=== PATIENT | female | born 1945 | race Caucasian/White ===

== ENCOUNTER 2017-08-23 20:42 | Emergency (ER) | payer MEDICARE ==
[~2017-08-23] VITALS: Ht 162.6 cm; Wt 59.0 kg
[~2017-08-23 20:42] MED LIST: HYDR-757 PO
--- OUTSIDE RECORDS SUMMARY | 2017-08-23 20:50 | XMS REPORT | CCD ---
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 Name Role Phone PP Unavailable CCM Unavailable Summary Purpose Interface Exchange Insurance Providers Payer name Policy type / Coverage type Covered democrat ID Effective Begin Date Effective End Date [employer] Commercial Insurance [id number] 2014 Unknown WPS Medicare Part B Commercial Insurance [id number] 2014 Unknown Family history Mother Diagnosis Age At Onset Hypertension Unknown Heart Attack Unknown Stroke Unknown Runs in the family Diagnosis Age At Onset Breast cancer Unknown Father Diagnosis Age At Onset Diabetes mellitus Type 1 Unknown Colon cancer Unknown Social History Social History Element Codes Description Effective Dates Marital status Unknown 08/05/2014 Number of children Unknown 2 08/05/2014 Employment Unknown Retired 08/05/[address]: 029354348 Never smoker 08/05/[address]: 922500515 Never drinks alcohol 08/05/2014 Allergies, Adverse Reactions, Alerts Allergies, Adverse Reactions, Alerts data not found Past Medical History Illness Codes Condition Status Onset Date Resolved Date Essential (primary) hypertension ICD-9: 401.9 ICD-10: I10 Active 08/04/2014 Unknown Type 2 diabetes mellitus without complications ICD-9: 250.00 ICD-10: E11.9 Active 08/04/2014 Unknown Encounter for immunization ICD-9: V03.9 ICD-10: Z23 Active 11/25/2016 Unknown Encounter for screening mammogram for malignant neoplasm of breast ICD-9: V76.12 ICD-10: Z12.31 Active 11/11/2015 Unknown Mixed hyperlipidemia ICD-9: 272.2 ICD-10: E78.2 Active 05/27/2016 Unknown Cough ICD-9: 786.2 ICD-10: R05 Active 04/09/2015 Unknown Gastro-esophageal reflux disease without esophagitis ICD-9: 530.81 ICD-10: K21.9 Active 11/12/2016 Unknown Encounter for general adult medical examination without abnormal findings ICD-9: V70.9 ICD-10: Z00.00 Active 10/15/2015 Unknown Age-related osteoporosis without current pathological fracture ICD-9: 733.00 ICD-10: M81.0 Active 11/11/2015 Unknown VACCIN FOR INFLUENZA ICD-9: V04.81 ICD-10: Z23 Active 11/11/2015 Unknown Other seborrheic keratosis ICD-9: 702.19 ICD-10: L82.1 Active 07/09/2015 Unknown Pain in left finger(s) ICD-9: 729.5 ICD-10: M79.645 Active 07/09/2015 Unknown Acute recurrent maxillary sinusitis ICD-9: 461.0 ICD-10: J01.01 Active 03/17/2015 Unknown Other acute nonsuppurative otitis media, left ear ICD-9: 381.00 ICD-10: H65.192 Active 03/17/2015 Unknown Other allergic rhinitis ICD-9: 477.8 ICD-10: J30.89 Active 03/17/2015 Unknown Atopic dermatitis, unspecified ICD-9: 691.8 ICD-10: L20.9 Active 03/05/2015 Unknown Dermatitis, unspecified ICD-9: 692.9 ICD-10: L30.9 Active 03/05/2015 Unknown Other specified diabetes mellitus without complications ICD-9: 250.00 ICD-10: E13.9 Active 08/04/2014 Unknown Diabetes Unknown Active 08/05/2014 Unknown Hypertension Unknown Active 08/05/2014 Unknown DIABETES TYPE II ICD-9 : 250.00 Active 08/04/2014 Unknown ESSENTIAL HYPERTENSION ICD-9: 401.9 Active 08/04/2014 Unknown Rash ICD-9: 782.1 Active 08/04/2014 Unknown Problems Condition Codes Effective Dates Condition Status Essential (primary) hypertension ICD-9: 401.9 ICD-10: I10 08/04/2014 Active Type 2 diabetes mellitus without complications ICD-9: 250.00 ICD-10: E11.9 08/04/2014 Active Encounter for immunization ICD-9: V03.9 ICD-10: Z23 11/25/2016 Active Encounter for screening mammogram for malignant neoplasm of breast ICD-9: V76.12 ICD-10: Z12.31 11/11/2015 Active Mixed hyperlipidemia ICD-9: 272.2 ICD-10: E78.2 05/27/2016 Active Cough ICD-9: 786.2 ICD-10: R05 04/09/2015 Active Gastro-esophageal reflux disease without esophagitis ICD-9: 530.81 ICD-10: K21.9 11/12/2016 Active Encounter for general adult medical examination without abnormal findings ICD-9: V70.9 ICD-10: Z00.00 10/15/2015 Active Age-related osteoporosis without current pathological fracture ICD-9: 733.00 ICD-10: M81.0 11/11/2015 Active VACCIN FOR INFLUENZA ICD-9: V04.81 ICD-10: Z23 11/11/2015 Active Other seborrheic keratosis ICD-9: 702.19 ICD-10: L82.1 07/09/2015 Active Pain in left finger(s) ICD-9: 729.5 ICD-10: M79.645 07/09/2015 Active Acute recurrent maxillary sinusitis ICD-9: 461.0 ICD-10: J01.01 03/17/2015 Active Other acute nonsuppurative otitis media, left ear ICD-9: 381.00 ICD-10: H65.192 03/17/2015 Active Other allergic rhinitis ICD-9: 477.8 ICD-10: J30.89 03/17/2015 Active Atopic dermatitis, unspecified ICD-9: 691.8 ICD-10: L20.9 03/05/2015 Active Dermatitis, unspecified ICD-9: 692.9 ICD-10: L30.9 03/05/2015 Active Other specified diabetes mellitus without complications ICD-9: 250.00 ICD-10: E13.9 08/04/2014 Active Diabetes Unknown 08/05/2014 Active Hypertension Unknown 08/05/2014 Active DIABETES TYPE II ICD-9 : 250.00 08/04/2014 Active ESSENTIAL HYPERTENSION ICD-9: 401.9 08/04/2014 Active Rash ICD-9: 782.1 08/04/2014 Active Medications Medication Codes Instructions Start Date Stop Date Status Fill Instructions Lexapro 5 mg tablet RxNorm: 454641 1 Tablet(s) PO QHS 201706/12/2017 Active simvastatin 20 mg tablet RxNorm: 837275 1 TABLET(S) PO DAILY 03/09/2018 Active Lexapro 5 mg tablet RxNorm: 178572 1 Tablet(s) PO QHS 201703/14/2017 Inactive Lexapro 5 mg tablet RxNorm: 051918 1 Tablet(s) PO QHS 201703/13/2017 Inactive Tamiflu 75 mg capsule RxNorm: 567500 1 Capsule(s) PO BID 201702/09/2017 Inactive Tamiflu 75 mg capsule RxNorm: 000402 1 Capsule(s) PO BID 201702/14/2017 Inactive Zoloft 50 mg tablet RxNorm: 087404 TABLET(S) 1 TABLET(S) PO DAILY 01/24/2017 01/18/2018 Active Fosamax 70 mg tablet RxNorm: 283543 1 TABLET(S) PO WEEKLY 12/0306/02/2017 Active losartan 50 mg tablet RxNorm: 041127 1 Tablet(s) PO daily TAKE 1 TABLET BY MOUTH EVERY DAY 11/25/2016 05/18/2018 Active hydrochlorothiazide 25 mg tablet RxNorm: 674112 TABLET(S) 1 TABLET(S) PO DAILY 11/23/2016 04/21/2017 Active metformin 1,000 mg tablet RxNorm: 806582 1 TABLET(S) PO BID 08/19/2017 Active Nexium 24HR 22.3 mg capsule,delayed release RxNorm: 863026 1 Capsule(s) PO daily 11/17/2016 11/11/2017 Active Nexium 24HR 22.3 mg capsule,delayed release RxNorm: 785222 1 Capsule(s) PO daily 11/17/2016 11/16/2016 Inactive Nexium 24HR 22.3 mg capsule,delayed release RxNorm: 884646 1 Capsule(s) PO daily 11/12/2016 11/16/2016 Inactive Klor-Con 10 mEq tablet,extended release RxNorm: 747230 1 TABLET(S) PO BID 09/20/2016 06/16/2017 Active betamethasone valerate 0.1 % topical ointment RxNorm: 608264 1 Application TOP TID as needed 08/02/2016 10/30/2016 Inactive hydrochlorothiazide 25 mg tablet RxNorm: 952976 TABLET(S) 1 TABLET(S) PO DAILY 06/09/2016 11/05/2016 Inactive losartan 25 mg tablet RxNorm: 960703 TAKE 1 TABLET BY MOUTH EVERY DAY 05/21/2016 11/16/2016 Inactive losartan 25 mg tablet RxNorm: 457248 Tablet(s) 1 TABLET(S) PO DAILY 03/17/2016 09/12/2016 Inactive Fosamax 70 mg tablet RxNorm: 599851 1 Tablet(s) PO weekly 03/1709/14/2016 Inactive simvastatin 20 mg tablet RxNorm: 432525 1 TABLET(S) PO DAILY 12/03/2016 Inactive metformin 1,000 mg tablet RxNorm: 344022 1 TABLET(S) PO BID 10/17/2016 Inactive Zoloft 50 mg tablet RxNorm: 082678 Tablet(s) 1 TABLET(S) PO DAILY 12/17/2015 2016 Inactive hydrochlorothiazide 25 mg tablet RxNorm: 143997 Tablet(s) 1 TABLET(S) PO DAILY 12/03/2015 05/30/2016 Inactive losartan 25 mg tablet RxNorm: 343453 1 TABLET(S) PO DAILY 201503/16/2016 Inactive Klor-Con 10 mEq tablet,extended release RxNorm: 184462 1 TABLET(S) PO BID 11/05/2015 07/31/2016 Inactive hydrochlorothiazide 25 mg tablet RxNorm: 201855 1 TABLET(S) PO DAILY (PLEASE CALL OFFICE FOR APPOINTMENT 07/30/20152015 Inactive [SAVINGS FOR NON-COVERED DRUGS -- BIN:[id number], PCN: ASPROD1, Group: XXXXX, ID# [id number], Questions: [phone]. THIS IS NOT INSURANCE.] Cipro 500 mg tablet RxNorm: 427923 1 Tablet(s) PO BID 201506/08/2015 Inactive Cipro 500 mg tablet RxNorm: 360053 1 Tablet(s) PO BID 201506/15/2015 Inactive Zoloft 50 mg tablet RxNorm: 048107 1 TABLET(S) PO DAILY 201511/21/2015 Inactive losartan 25 mg tablet RxNorm: 027453 1 Tablet(s) PO daily 201511/05/2015 Inactive Zoloft 50 mg tablet RxNorm: 386827 TAKE 1 TABLET BY MOUTH DAILY 03/31/2015 09/26/2015 Inactive Zoloft 50 mg tablet RxNorm: 058010 1 Tablet(s) PO daily 201503/30/2015 Inactive enalapril maleate 5 mg tablet RxNorm: 603449 TAKE 1 TABLET BY MOUTH DAILY 03/31/2015 04/09/2015 Inactive amoxicillin 500 mg tablet RxNorm: 436031 1 Tablet(s) PO BID 10/201503/24/2015 Inactive ciprofloxacin 0.3 % eye drops RxNorm: 485553 1-2 Drop(s) OTIC TID 03/18/2015 03/27/2015 Inactive betamethasone valerate 0.1 % topical ointment RxNorm: 469032 1 Application TOP TID 03/06/2015 10/01/2015 Inactive hydrochlorothiazide 25 mg tablet RxNorm: 467478 1 TABLET(S) PO DAILY (PLEASE CALL OFFICE FOR APPOINTMENT 01/21/20152015 Inactive [SAVINGS FOR NON-COVERED DRUGS -- BIN:[id number], PCN: ASPROD1, Group: XXXXX, ID# [id number], Questions: [phone]. THIS IS NOT INSURANCE.] simvastatin 20 mg tablet RxNorm: 960964 1 Tablet(s) PO daily 12/26/2015 Inactive metformin 1,000 mg tablet RxNorm: 526515 TAKE 1 TWICE DAILY 06/24/2015 Inactive metformin 1,000 mg tablet RxNorm: 413900 1 Tablet(s) PO BID 12/26/2014 Inactive metformin 500 mg tablet RxNorm: 427419 1 Tablet(s) PO BID 12/2712/26/2014 Inactive Fosamax 70 mg tablet RxNorm: 421982 1 Tablet(s) PO QW weekly 12/14/2015 Inactive betamethasone valerate 0.1 % topical ointment RxNorm: 317404 1 Application TOP TID 11/19/2014 12/02/2014 Inactive hydrochlorothiazide 25 mg tablet RxNorm: 598258 1 TABLET(S) PO DAILY (PLEASE CALL OFFICE FOR APPOINTMENT 10/31/20142014 Inactive [SAVINGS FOR NON-COVERED DRUGS -- BIN:[id number], PCN: ASPROD1, Group: XXXXX, ID# [id number], Questions: [phone]. THIS IS NOT INSURANCE.] Klor-Con 10 mEq tablet,extended release RxNorm: 490291 1 Tablet(s) PO BID 10/25/2014 10/19/2015 Inactive Klor-Con 10 mEq tablet,extended release RxNorm: 454746 1 Tablet(s) PO BID 10/25/2014 10/24/2014 Inactive Klor-Con 10 mEq tablet,extended release RxNorm: 684828 1 Tablet(s) PO BID 10/25/2014 10/24/2014 Inactive enalapril maleate 5 mg tablet RxNorm: 117746 TAKE 1 TABLET BY MOUTH DAILY 10/01/2014 03/29/2015 Inactive triamcinolone acetonide 0.1 % topical cream RxNorm: 0512875 1 Application TOP BID 08/05/2014 08/18/2014 Inactive clotrimazole 1 % topical cream RxNorm: 202014 1 Application TOP BID 08/05/2014 08/18/2014 Inactive apply to rash twice daily hydrochlorothiazide 25 mg tablet RxNorm: 149600 1 TABLET(S) PO DAILY (PLEASE CALL OFFICE FOR APPOINTMENT 08/01/20142014 Inactive [SAVINGS FOR NON-COVERED DRUGS -- BIN:[id number], PCN: ASPROD1, Group: XXXXX, ID# [id number], Questions: [phone]. THIS IS NOT INSURANCE.] hydrochlorothiazide 25 mg tablet RxNorm: 651239 1 Tablet(s) PO daily (please call office for appointment 06/19/20142014 Inactive [SAVINGS FOR NON-COVERED DRUGS -- BIN:714709, PCN: ASPROD1, Group: XXXXX, ID# [id number], Questions: [phone]. THIS IS NOT INSURANCE.] hydrochlorothiazide 25 mg tablet RxNorm: 826527 1 Tablet(s) PO daily (please call office for appointment 06/19/20142014 Inactive vitamin E 1,000 unit tablet RxNorm: 620832 1 Tablet(s) PO daily No Start Date Active One Touch Test strips RxNorm: Miscellaneous No Start Date Active acyclovir 400 mg tablet RxNorm: 288694 1 Tablet(s) PO daily No Start Date Active Vitamin B-12 1,000 mcg tablet RxNorm: 552776 1 Tablet(s) PO daily No Start Date Active Vitamin D3 5,000 unit tablet RxNorm: 020463 1 Tablet(s) PO daily No Start Date Active Vitamin C 500 mg chewable tablet RxNorm: 682534 1 Tablet(s) PO daily No Start Date Active enalapril maleate 5 mg tablet RxNorm: 581636 1 Tablet(s) PO daily No Start Date 09/30/2014 Inactive Vitamin D2 50,000 unit capsule RxNorm: 246797 1 Capsule(s) PO weekly No Start Date 05/26/2016 Inactive Zoloft 50 mg tablet RxNorm: 724632 1 Tablet(s) PO daily No Start Date 03/30/2015 Inactive KCL 10 meq RxNorm: 1 Tablet(s) PO BID No Start Date 10/25/2014 Inactive sertraline 50 mg tablet RxNorm: 819904 oral No Start Date 05/27/2016 Inactive Fosamax 70 mg tablet RxNorm: 331804 1 Tablet(s) PO weekly No Start Date 03/16/2016 Inactive metformin 500 mg tablet RxNorm: 598147 1 Tablet(s) PO BID No Start Date 12/26/2014 Inactive Vitamin B12 500 mcg RxNorm: 1 PO daily No Start Date 05/26/2016 Inactive Medication Administered No Medication Administered data Immunizations Vaccine Codes Date Status Influenza CVX: 141 11/25/2016 completed Influenza CVX: 141 12/29/2015 completed Influenza CVX: 141 11/12/2015 completed Influenza CVX: 141 11/19/2014 completed Assessments Condition Codes Effective Dates Type 2 diabetes mellitus without complications ICD-10: E11.9 ICD-9: 250.00 01/05/2017 Essential (primary) hypertension ICD-10: I10 ICD-9: 401.9 01/05/2017 Encounter for immunization ICD-10: Z23 ICD-9: V03.9 11/25/2016 Encounter for screening mammogram for malignant neoplasm of breast ICD-10: Z12.31 ICD-9: V76.12 11/25/2016 Mixed hyperlipidemia ICD-10: E78.2 ICD-9: 272.2 11/25/2016 Gastro-esophageal reflux disease without esophagitis ICD-10 : K21.9 ICD-9: 530.81 11/12/2016 Cough ICD-10: R05 ICD-9: 786.2 11/12/2016 Age-related osteoporosis without current pathological fracture ICD-10: M81.0 ICD-9: 733.00 11/12/2015 VACCIN FOR INFLUENZA ICD-10: Z23 ICD-9: V04.81 11/12/2015 Encounter for general adult medical examination without abnormal findings ICD-10: Z00.00 ICD-9: V70.9 10/16/2015 Pain in left finger(s) ICD-10: M79.645 ICD-9: 729.5 07/10/2015 Other seborrheic keratosis ICD-10: L82.1 ICD-9: 702.19 07/10/2015 Other acute nonsuppurative otitis media, left ear ICD-10: H65.192 ICD-9: 381.00 03/18/2015 Other allergic rhinitis ICD-10: J30.89 ICD-9: 477.8 03/18/2015 Acute recurrent maxillary sinusitis ICD-10: J01.01 ICD-9: 461.0 03/18/2015 Dermatitis, unspecified ICD-10: L30.9 ICD-9: 692.9 03/06/2015 Atopic dermatitis, unspecified ICD-10: L20.9 ICD-9: 691.8 03/06/2015 Other specified diabetes mellitus without complications ICD- 10: E13.9 ICD-9: 250.00 11/19/2014 Rash ICD-9: 782.1 08/16/2014 DIABETES TYPE II ICD-9: 250.00 2014 ESSENTIAL HYPERTENSION ICD-9: 401.9 08/05 Reason For Visit Reason For Visit Effective Dates Notes hypertension 01/05/2017 hypertension 11/25/2016 resolved cough 11/12/2016 hypertension 05/27/2016 hypertension 05/05/2016 hypertension 11/12/2015 Annual Medicare Wellness Exam 10/16/2015 cough 07/10/2015 cough 04/10/2015 earache 03/18/2015 abdominal pain 03/06/2015 mole check 12/12/2014 psoriasis 11/19/2014 BILAT LE flare up of rash 08/16/2014 flare up of rash 08/05/2014 Results Observation Observation Code Item Item Code Result Date %Hba1C Kqp582 % HbA1c 01199-0 5.9 % 12/01/2016 %Hba1C Inn916 Gluc Ave 123 mg/dL 12/01/2016 Comp Metabolic Ivb535 NA 139 mEq/L 12/01/2016 Comp Metabolic Xkr608 K 3.9 mEq/L 12/01/2016 Comp Metabolic Epc325 CL 102 mEq/L 12/01/2016 Comp Metabolic Ymf369 CO2 27.0 mEq/L 12/01/2016 Comp Metabolic Wbe543 ANION GAP 14 12/01/2016 Comp Metabolic Sdn845 GLUCOSE 118 mg/dL 12/01/2016 Comp Metabolic Jmr205 Creat 1.3 mg/dL 12/01/2016 Comp Metabolic Umt400 eGFR 43 ml/min/1.73m2 12/01/2016 Comp Metabolic Cfv524 BUN 26 mg/dL 12/01/2016 Comp Metabolic Ofz798 B/C Ratio 20.0 Ratio 12/01/2016 Comp Metabolic Usc439 CALCIUM 9.0 mg/dL 12/01/2016 Comp Metabolic Gcs195 ALK PHOS 84 U/L 12/01/2016 Comp Metabolic Dky087 AST(SGOT) 9 U/L 12/01/2016 Comp Metabolic Cqu755 ALT(SGPT) 7 U/L 12/01/2016 Comp Metabolic Axz705 BILI T 0.5 mg/dL 12/01/2016 Comp Metabolic Mcq637 ALBUMIN 3.8 g/dL 12/01/2016 Comp Metabolic Xpw644 TPRO 6.2 g/dL 12/01/2016 Comp Metabolic Mxj791 GLOB 2.4 g/dL 12/01/2016 Comp Metabolic Rag191 A/G Ratio 1.6 Ratio 12/01/2016 Comp Metabolic Ijf040 Osmo 283 mOsmo 12/01/2016 Cbc With Differential Ord2 WBC 8.51 K/ul 12/01/2016 Cbc With Differential Ord2 RBC 4.02 M/ul 12/01/2016 Cbc With Differential Ord2 HGB 12.0 g/dl 12/01/2016 Cbc With Differential Ord2 Neut% 66.8 % 12/01/2016 Cbc With Differential Ord2 HCT 36.0 % 12/01/2016 Cbc With Differential Ord2 MCV 89.6 fl 12/01/2016 Cbc With Differential Ord2 Lymph% 20.7 % 12/01/2016 Cbc With Differential Ord2 [place]% 9.4 % 12/01/2016 Cbc With Differential Ord2 MCH 29.9 pg 12/01/2016 Cbc With Differential Ord2 Eos% 2.7 % 12/01/2016 Cbc With Differential Ord2 MCHC 33.3 pg 12/01/2016 Cbc With Differential Ord2 PLT 260 K/ul 12/01/2016 Cbc With Differential Ord2 Baso% 0.4 % 12/01/2016 Cbc With Differential Ord2 Neut ABS# 5.69 K/ul 12/01/2016 Cbc With Differential Ord2 RDW 13.3 % 12/01/2016 Cbc With Differential Ord2 Lymph ABS# 1.76 K/ul 12/01/2016 Cbc With Differential Ord2 [place] ABS# 0.8 K/ul 12/01/2016 Cbc With Differential Ord2 Eos ABS# 0.2 K/ul 12/01/2016 Cbc With Differential Ord2 Baso ABS# 0.0 K/ul 12/01/2016 Lipid Ord30 CHOL 180 mg/dL 12/01/2016 Lipid Ord30 HDL 47.0 mg/dl 12/01/2016 Lipid Ord30 TRIG 142 mg/dL 12/01/2016 Lipid Ord30 LDL 105 mg/dL 12/01/2016 Lipid Ord30 C/HDL 3.8 Ratio 12/01/2016 Tsh Ord6 hTSH II 1.48 uIU/mL 12/01/2016 Lipid Ord30 CHOL 175 mg/dL 06/14/2016 Lipid Ord30 HDL 57.0 mg/dl 06/14/2016 Lipid Ord30 TRIG 80 mg/dL 06/14/2016 Lipid Ord30 LDL 102 mg/dL 06/14/2016 Lipid Ord30 C/HDL 3.1 Ratio 06/14/2016 Tsh Ord6 hTSH II 1.99 uIU/mL 06/14/2016 %Hba1C Mzr736 % HbA1c 07900-3 5.9 % 06/14/2016 %Hba1C Yat143 Gluc Ave 123 mg/dL 06/14/2016 Microalbumin Rem998 MicroAlb <0.7 mg/dL 06/14/2016 Comp Metabolic Bsf017 NA 139 mEq/L 06/14/2016 Comp Metabolic Bde315 K 4.0 mEq/L 06/14/2016 Comp Metabolic Bmw645 CL 100 mEq/L 06/14/2016 Comp Metabolic Mgd132 CO2 26.0 mEq/L 06/14/2016 Comp Metabolic Knd067 ANION GAP 17 06/14/2016 Comp Metabolic Ydc908 GLUCOSE 122 mg/dL 06/14/2016 Comp Metabolic Men167 Creat 1.2 mg/dL 06/14/2016 Comp Metabolic Rqq506 eGFR 46 ml/min/1.73m2 06/14/2016 Comp Metabolic Kse271 BUN 27 mg/dL 06/14/2016 Comp Metabolic Miq021 B/C Ratio 22.3 Ratio 06/14/2016 Comp Metabolic Pys405 CALCIUM 9.2 mg/dL 06/14/2016 Comp Metabolic Pji027 ALK PHOS 89 U/L 06/14/2016 Comp Metabolic Mjf519 AST(SGOT) 9 U/L 06/14/2016 Comp Metabolic Sml176 ALT(SGPT) 9 U/L 06/14/2016 Comp Metabolic Oio899 BILI T 0.5 mg/dL 06/14/2016 Comp Metabolic Dse288 ALBUMIN 3.9 g/dL 06/14/2016 Comp Metabolic Urh393 TPRO 6.5 g/dL 06/14/2016 Comp Metabolic Bmw489 GLOB 2.6 g/dL 06/14/2016 Comp Metabolic Ctd063 A/G Ratio 1.5 Ratio 06/14/2016 Comp Metabolic Tug649 Osmo 284 mOsmo 06/14/2016 Cbc With Differential Ord2 WBC 9.48 K/ul 06/14/2016 Cbc With Differential Ord2 RBC 4.29 M/ul 06/14/2016 Cbc With Differential Ord2 HGB 13.0 g/dl 06/14/2016 Cbc With Differential Ord2 Neut% 67.0 % 06/14/2016 Cbc With Differential Ord2 HCT 38.8 % 06/14/2016 Cbc With Differential Ord2 MCV 90.4 fl 06/14/2016 Cbc With Differential Ord2 Lymph% 20.9 % 06/14/2016 Cbc With Differential Ord2 MCH 30.3 pg 06/14/2016 Cbc With Differential Ord2 [place]% 10.3 % 06/14/2016 Cbc With Differential Ord2 MCHC 33.5 pg 06/14/2016 Cbc With Differential Ord2 Eos% 1.4 % 06/14/2016 Cbc With Differential Ord2 PLT 273 K/ul 06/14/2016 Cbc With Differential Ord2 Baso% 0.4 % 06/14/2016 Cbc With Differential Ord2 RDW 13.1 % 06/14/2016 Cbc With Differential Ord2 Neut ABS# 6.35 K/ul 06/14/2016 Cbc With Differential Ord2 Lymph ABS# 1.98 K/ul 06/14/2016 Cbc With Differential Ord2 [place] ABS# 1.0 K/ul 06/14/2016 Cbc With Differential Ord2 Eos ABS# 0.1 K/ul 06/14/2016 Cbc With Differential Ord2 Baso ABS# 0.0 K/ul 06/14/2016 Comp Metabolic Uwp488 NA 140 mEq/L 11/13/2015 Comp Metabolic Axv476 K 4.3 mEq/L 11/13/2015 Comp Metabolic Fhe983 CL 101 mEq/L 11/13/2015 Comp Metabolic Zan599 CO2 31.0 mEq/L 11/13/2015 Comp Metabolic Ptz483 ANION GAP 12 11/13/2015 Comp Metabolic Zla242 GLUCOSE 108 mg/dL 11/13/2015 Comp Metabolic Gey602 Creat 1.1 mg/dL 11/13/2015 Comp Metabolic Kjx936 eGFR 54 ml/min/1.73m2 11/13/2015 Comp Metabolic Vxo053 BUN 23 mg/dL 11/13/2015 Comp Metabolic Qck325 B/C Ratio 21.5 Ratio 11/13/2015 Comp Metabolic Bdr438 CALCIUM 9.8 mg/dL 11/13/2015 Comp Metabolic Sbi142 ALK PHOS 69 U/L 11/13/2015 Comp Metabolic Lgm378 AST(SGOT) 11 U/L 11/13/2015 Comp Metabolic Euj630 ALT(SGPT) 8 U/L 11/13/2015 Comp Metabolic Rby759 BILI T 0.5 mg/dL 11/13/2015 Comp Metabolic Yqv590 ALBUMIN 4.0 g/dL 11/13/2015 Comp Metabolic Sfm302 TPRO 6.4 g/dL 11/13/2015 Comp Metabolic Bmx041 GLOB 2.4 g/dL 11/13/2015 Comp Metabolic Bnc566 A/G Ratio 1.7 Ratio 11/13/2015 Comp Metabolic Dco641 Osmo 284 mOsmo 11/13/2015 Vitamin D 25 Oh Hwa5444 VITAMIN D, 25 HYDROXY 51.34 ng/mL Tsh Ord6 hTSH II 1.57 uIU/mL 11/12/2015 Cbc With Differential Ord2 WBC 7.53 K/ul 11/12/2015 Cbc With Differential Ord2 RBC 3.99 M/ul 11/12/2015 Cbc With Differential Ord2 HGB 12.2 g/dl 11/12/2015 Cbc With Differential Ord2 HCT 35.6 % 11/12/2015 Cbc With Differential Ord2 Neut% 59.6 % 11/12/2015 Cbc With Differential Ord2 Lymph% 27.9 % 11/12/2015 Cbc With Differential Ord2 MCV 89.2 fl 11/12/2015 Cbc With Differential Ord2 MCH 30.6 pg 11/12/2015 Cbc With Differential Ord2 [place]% 10.1 % 11/12/2015 Cbc With Differential Ord2 Eos% 1.9 % 11/12/2015 Cbc With Differential Ord2 MCHC 34.3 pg 11/12/2015 Cbc With Differential Ord2 Baso% 0.5 % 11/12/2015 Cbc With Differential Ord2 PLT 256 K/ul 11/12/2015 Cbc With Differential Ord2 Neut ABS# 4.49 K/ul 11/12/2015 Cbc With Differential Ord2 RDW 13.0 % 11/12/2015 Cbc With Differential Ord2 Lymph ABS# 2.10 K/ul 11/12/2015 Cbc With Differential Ord2 [place] ABS# 0.8 K/ul 11/12/2015 Cbc With Differential Ord2 Eos ABS# 0.1 K/ul 11/12/2015 Cbc With Differential Ord2 Baso ABS# 0.0 K/ul 11/12/2015 %Hba1C Qgc581 % HbA1c 18716-1 5.8 % 11/12/2015 %Hba1C Mwn956 Gluc Ave 120 mg/dL 11/12/2015 Vitamin D 25 Oh Ncl8402 VITAMIN D, 25 HYDROXY 25.02 ng/mL Lipid Ord30 CHOL 162 mg/dL 03/06/2015 Lipid Ord30 HDL 54.0 mg/dl 03/06/2015 Lipid Ord30 TRIG 114 mg/dL 03/06/2015 Lipid Ord30 LDL 85 mg/dL 03/06/2015 Lipid Ord30 C/HDL 3.0 Ratio 03/06/2015 %Hba1C Kqd813 % HbA1c 41482-3 5.8 % 03/06/2015 %Hba1C Shc715 Gluc Ave 120 mg/dL 03/06/2015 Comp Metabolic Uko747 NA 137 mEq/L 03/06/2015 Comp Metabolic Dbr752 K 4.5 mEq/L 03/06/2015 Comp Metabolic Ebb180 CL 100 mEq/L 03/06/2015 Comp Metabolic Hhu408 CO2 28.0 mEq/L 03/06/2015 Comp Metabolic Zrv643 ANION GAP 14 03/06/2015 Comp Metabolic Xgk012 GLUCOSE 87 mg/dL 03/06/2015 Comp Metabolic Shk511 Creat 1.1 mg/dL 03/06/2015 Comp Metabolic Hrc083 eGFR 52 ml/min/1.73m2 03/06/2015 Comp Metabolic Bdv566 BUN 31 mg/dL 03/06/2015 Comp Metabolic Oxw536 B/C Ratio 28.2 Ratio 03/06/2015 Comp Metabolic Wkx161 CALCIUM 9.2 mg/dL 03/06/2015 Comp Metabolic Yfv963 ALK PHOS 72 U/L 03/06/2015 Comp Metabolic Aog572 AST(SGOT) 9 U/L 03/06/2015 Comp Metabolic Xnc260 ALT(SGPT) 7 U/L 03/06/2015 Comp Metabolic Onu143 BILI T 0.5 mg/dL 03/06/2015 Comp Metabolic Grl552 ALBUMIN 4.1 g/dL 03/06/2015 Comp Metabolic Ufw191 TPRO 6.3 g/dL 03/06/2015 Comp Metabolic Woq430 GLOB 2.2 g/dL 03/06/2015 Comp Metabolic Fko545 A/G Ratio 1.9 Ratio 03/06/2015 Comp Metabolic Eqo929 Osmo 280 mOsmo 03/06/2015 %Hba1C Bsc097 % HbA1c 76560-7 5.8 % 11/20/2014 %Hba1C Ecg041 Gluc Ave 120 mg/dL 11/20/2014 Tsh Ord6 hTSH II 1.58 uIU/mL 11/19/2014 Cbc With Differential Ord2 WBC 8.9 K/uL 11/19/2014 Cbc With Differential Ord2 LYM 2.2 K/uL 11/19/2014 Cbc With Differential Ord2 LYM% 24.9 % 11/19/2014 Cbc With Differential Ord2 NEUT/GRAN 6.1 K/uL 11/19/2014 Cbc With Differential Ord2 NEUT/GRAN % 69.0 % 11/19/2014 Cbc With Differential Ord2 MID 0.5 K/uL 11/19/2014 Cbc With Differential Ord2 MID% 6.1 % 11/19/2014 Cbc With Differential Ord2 RBC 4.31 M/uL 11/19/2014 Cbc With Differential Ord2 HGB 12.8 g/dL 11/19/2014 Cbc With Differential Ord2 HCT 39.2 % 11/19/2014 Cbc With Differential Ord2 MCV 91 fL 11/19/2014 Cbc With Differential Ord2 MCH 30 pg 11/19/2014 Cbc With Differential Ord2 MCHC 33 g/dL 11/19/2014 Cbc With Differential Ord2 PLT 275 K/uL 11/19/2014 Cbc With Differential Ord2 RDW 15.1 % 11/19/2014 Lipid Ord30 CHOL 150 mg/dL 11/19/2014 Lipid Ord30 HDL 49.0 mg/dl 11/19/2014 Lipid Ord30 TRIG 129 mg/dL 11/19/2014 Lipid Ord30 LDL 75 mg/dL 11/19/2014 Lipid Ord30 C/HDL 3.1 Ratio 11/19/2014 Comp Metabolic Pjk050 NA 137 mEq/L 11/19/2014 Comp Metabolic Smd253 K 4.2 mEq/L 11/19/2014 Comp Metabolic Lju274 CL 99 mEq/L 11/19/2014 Comp Metabolic Til245 CO2 30.0 mEq/L 11/19/2014 Comp Metabolic Zus798 ANION GAP 12 11/19/2014 Comp Metabolic Dtz230 GLUCOSE 92 mg/dL 11/19/2014 Comp Metabolic Oge655 Creat 0.9 mg/dL 11/19/2014 Comp Metabolic Acl000 eGFR 68 ml/min/1.73m2 11/19/2014 Comp Metabolic Vlb731 BUN 23 mg/dL 11/19/2014 Comp Metabolic Lwr832 B/C Ratio 26.4 Ratio 11/19/2014 Comp Metabolic Sfp220 CALCIUM 9.7 mg/dL 11/19/2014 Comp Metabolic Aam763 ALK PHOS 84 U/L 11/19/2014 Comp Metabolic Gsf833 AST(SGOT) 9 U/L 11/19/2014 Comp Metabolic Nhn617 ALT(SGPT) 9 U/L 11/19/2014 Comp Metabolic Vjv082 BILI T 0.5 mg/dL 11/19/2014 Comp Metabolic Zcw576 ALBUMIN 4.3 g/dL 11/19/2014 Comp Metabolic Dfi416 TPRO 6.7 g/dL 11/19/2014 Comp Metabolic Jgo390 GLOB 2.4 g/dL 11/19/2014 Comp Metabolic Ulv458 A/G Ratio 1.8 Ratio 11/19/2014 Comp Metabolic Eer310 Osmo 277 mOsmo 11/19/2014 Review of Systems System Result Effective Dates Constitutional No recent illness 2016 Constitutional No anorexia 01/05/2017 Constitutional No night sweats 2016 Constitutional No chills 01/05/2017 Constitutional No diaphoresis 01/05/2017 Constitutional fatigue 01/05/2017 Constitutional No fever 01/05/2017 Constitutional No malaise 01/05/2017 Eyes No eye discharge 01/05/2017 Eyes No eye erythema 01/05/2017 Ears/Nose/Throat/Neck No dizziness 2016 Ears/Nose/Throat/Neck No headache 2016 Cardiovascular No chest pain/pressure Respiratory No cough 01/05/2017 Gastrointestinal No abdominal pain 2016 Gastrointestinal No constipation 2016 Gastrointestinal No diarrhea 01/05/2017 Genitourinary/Nephrology No dysuria 01/05 Musculoskeletal joint complaint 2016 Dermatologic rash 01/05/2017 Neurologic No alteration of consciousness 01/05/2017 Psychiatric anxiety 01/05/2017 Psychiatric No depression 01/05/2017 Endocrine diabetes mellitus type 2 2016 Constitutional No recent illness 2016 Constitutional No anorexia 11/25/2016 Constitutional No night sweats 2016 Constitutional No chills 11/25/2016 Constitutional No diaphoresis 11/25/2016 Constitutional No fatigue 11/25/2016 Constitutional No fever 11/25/2016 Constitutional No malaise 11/25/2016 Eyes No eye discharge 11/25/2016 Eyes No eye erythema 11/25/2016 Ears/Nose/Throat/Neck No dizziness 2016 Ears/Nose/Throat/Neck No headache 2016 Cardiovascular No chest pain/pressure Respiratory No cough 11/25/2016 Gastrointestinal No abdominal pain 2016 Gastrointestinal No constipation 2016 Gastrointestinal No diarrhea 11/25/2016 Genitourinary/Nephrology No dysuria 11/25 Musculoskeletal joint complaint 2016 Dermatologic rash 11/25/2016 Neurologic No alteration of consciousness 11/25/2016 Psychiatric No anxiety 11/25/2016 Psychiatric No depression 11/25/2016 Endocrine diabetes mellitus type 2 2016 Constitutional No recent illness 2016 Constitutional No chills 11/12/2016 Constitutional No diaphoresis 11/12/2016 Constitutional No fever 11/12/2016 Eyes No eye erythema 11/12/2016 Ears/Nose/Throat/Neck No nasal discharge 11/12/2016 Ears/Nose/Throat/Neck No nasal allergies 11/12/2016 Cardiovascular No chest pain/pressure 07/2016 Cardiovascular No dyspnea 11/12/2016 Respiratory No chest congestion 2016 Respiratory cough 11/12/2016 Respiratory dyspnea on exertion 2016 Gastrointestinal No abdominal pain 2016 Gastrointestinal gastroesophageal reflux 11/12/2016 Gastrointestinal No diarrhea 11/12/2016 Gastrointestinal No constipation 2016 Gastrointestinal No vomiting 11/12/2016 Gastrointestinal No nausea 11/12/2016 Neurologic No alteration of consciousness 11/12/2016 Neurologic No mental status change 2016 Constitutional No recent illness 2016 Constitutional No anorexia 05/27/2016 Constitutional No night sweats 2016 Constitutional No chills 05/27/2016 Constitutional No diaphoresis 05/27/2016 Constitutional No fatigue 05/27/2016 Constitutional No fever 05/27/2016 Constitutional No malaise 05/27/2016 Eyes No eye discharge 05/27/2016 Eyes No eye erythema 05/27/2016 Ears/Nose/Throat/Neck No dizziness 2016 Ears/Nose/Throat/Neck No headache 2016 Cardiovascular No chest pain/pressure Respiratory No cough 05/27/2016 Gastrointestinal No abdominal pain 2016 Gastrointestinal No constipation 2016 Gastrointestinal No diarrhea 05/27/2016 Genitourinary/Nephrology No dysuria 05/27 Musculoskeletal joint complaint 2016 Dermatologic rash 05/27/2016 Neurologic No alteration of consciousness 05/27/2016 Psychiatric No anxiety 05/27/2016 Psychiatric No depression 05/27/2016 Endocrine diabetes mellitus type 2 2016 Constitutional No recent illness 2016 Constitutional No diaphoresis 05/05/2016 Constitutional No fever 05/05/2016 Eyes No eye erythema 05/05/2016 Ears/Nose/Throat/Neck No nasal allergies 05/05/2016 Ears/Nose/Throat/Neck No nasal discharge 05/05/2016 Cardiovascular No chest pain/pressure Respiratory No dyspnea 05/05/2016 Respiratory No cough 05/05/2016 Gastrointestinal No abdominal pain 2016 Gastrointestinal No constipation 2016 Gastrointestinal No diarrhea 05/05/2016 Gastrointestinal No vomiting 05/05/2016 Gastrointestinal No nausea 05/05/2016 Musculoskeletal No joint complaint 2016 Dermatologic No rash 05/05/2016 Neurologic No alteration of consciousness 05/05/2016 Neurologic No mental status change 2016 Constitutional No recent illness 2015 Constitutional No anorexia 11/12/2015 Constitutional No night sweats 2015 Constitutional No chills 11/12/2015 Constitutional No diaphoresis 11/12/2015 Constitutional No fatigue 11/12/2015 Constitutional No fever 11/12/2015 Constitutional No malaise 11/12/2015 Eyes No eye discharge 11/12/2015 Eyes No eye erythema 11/12/2015 Ears/Nose/Throat/Neck No dizziness 2015 Ears/Nose/Throat/Neck No headache 2015 Cardiovascular No chest pain/pressure 06/2015 Respiratory No cough 11/12/2015 Gastrointestinal No abdominal pain 2015 Gastrointestinal No constipation 2015 Gastrointestinal No diarrhea 11/12/2015 Genitourinary/Nephrology No dysuria 11/11 Musculoskeletal joint complaint 2015 Dermatologic rash 11/12/2015 Neurologic No alteration of consciousness 11/12/2015 Psychiatric No anxiety 11/12/2015 Psychiatric No depression 11/12/2015 Endocrine diabetes mellitus type 2 2015 Constitutional No recent illness 2015 Constitutional No anorexia 10/16/2015 Constitutional No chills 10/16/2015 Constitutional No diaphoresis 10/16/2015 Constitutional No fatigue 10/16/2015 Constitutional No fever 10/16/2015 Constitutional No insomnia 10/16/2015 Constitutional No malaise 10/16/2015 Eyes No eye discharge 10/16/2015 Eyes No eye erythema 10/16/2015 Ears/Nose/Throat/Neck No dizziness 2015 Ears/Nose/Throat/Neck No headache 2015 Cardiovascular No chest pain/pressure 09/2015 Respiratory No cough 10/16/2015 Gastrointestinal No abdominal pain 2015 Gastrointestinal No constipation 2015 Gastrointestinal No diarrhea 10/16/2015 Genitourinary/Nephrology No dysuria 10/15 Neurologic No alteration of consciousness 10/16/2015 Psychiatric No anxiety 10/16/2015 Psychiatric No depression 10/16/2015 Constitutional No night sweats 2015 Ears/Nose/Throat/Neck No nasal discharge 10/16/2015 Ears/Nose/Throat/Neck No nasal allergies 10/16/2015 Ears/Nose/Throat/Neck No sore throat 09/2015 Ears/Nose/Throat/Neck No sinus congestion 10/16/2015 Cardiovascular No dyspnea 10/16/2015 Cardiovascular No edema 10/16/2015 Respiratory No chest congestion 2015 Respiratory No productive sputum 2015 Respiratory No dyspnea 10/16/2015 Genitourinary/Nephrology No flank pain Musculoskeletal No joint complaint 2015 Dermatologic No rash 10/16/2015 Neurologic No mental status change 2015 Constitutional No recent illness 2015 Constitutional No anorexia 07/10/2015 Constitutional No night sweats 2015 Constitutional No chills 07/10/2015 Constitutional No diaphoresis 07/10/2015 Constitutional No fatigue 07/10/2015 Constitutional No fever 07/10/2015 Constitutional No insomnia 07/10/2015 Constitutional No malaise 07/10/2015 Eyes No eye discharge 07/10/2015 Eyes No eye erythema 07/10/2015 Ears/Nose/Throat/Neck No dizziness 2015 Ears/Nose/Throat/Neck No headache 2015 Cardiovascular No chest pain/pressure 03/2015 Respiratory No cough 07/10/2015 Gastrointestinal No abdominal pain 2015 Gastrointestinal No constipation 2015 Gastrointestinal No diarrhea 07/10/2015 Genitourinary/Nephrology No dysuria 07/09 Musculoskeletal joint complaint 2015 Dermatologic rash 07/10/2015 Neurologic No alteration of consciousness 07/10/2015 Psychiatric No anxiety 07/10/2015 Psychiatric No depression 07/10/2015 Constitutional No recent illness 2015 Constitutional No anorexia 04/10/2015 Constitutional No night sweats 2015 Constitutional No chills 04/10/2015 Constitutional No diaphoresis 04/10/2015 Constitutional No fatigue 04/10/2015 Constitutional No fever 04/10/2015 Constitutional No insomnia 04/10/2015 Constitutional No malaise 04/10/2015 Constitutional No weight loss 04/10/2015 Constitutional No weight gain 04/10/2015 Eyes No eye discharge 04/10/2015 Eyes No eye erythema 04/10/2015 Ears/Nose/Throat/Neck No dizziness 2015 Ears/Nose/Throat/Neck No headache 2015 Cardiovascular No chest pain/pressure 04/2015 Respiratory No cough 04/10/2015 Gastrointestinal No abdominal pain 2015 Gastrointestinal No constipation 2015 Gastrointestinal No diarrhea 04/10/2015 Genitourinary/Nephrology No dysuria 04/09 Musculoskeletal No joint complaint 2015 Dermatologic No rash 04/10/2015 Neurologic No alteration of consciousness 04/10/2015 Psychiatric No anxiety 04/10/2015 Psychiatric No depression 04/10/2015 Constitutional recent illness 03/18/2015 Constitutional No diaphoresis 03/18/2015 Constitutional No fever 03/18/2015 Eyes No eye discharge 03/18/2015 Eyes No eye erythema 03/18/2015 Cardiovascular No chest pain/pressure 10/2015 Respiratory No cough 03/18/2015 Gastrointestinal No abdominal pain 2015 Gastrointestinal No constipation 2015 Gastrointestinal No diarrhea 03/18/2015 Genitourinary/Nephrology No dysuria 03/18 Musculoskeletal No joint complaint 2015 Dermatologic No rash 03/18/2015 Neurologic No alteration of consciousness 03/18/2015 Psychiatric No anxiety 03/18/2015 Psychiatric No depression 03/18/2015 Ears/Nose/Throat/Neck nasal allergies 10/2015 Ears/Nose/Throat/Neck nasal discharge 10/2015 Ears/Nose/Throat/Neck otalgia 03/18/2015 Ears/Nose/Throat/Neck No sinus congestion 03/18/2015 Ears/Nose/Throat/Neck No sore throat 10/2015 Cardiovascular No dyspnea 03/18/2015 Respiratory No chest congestion 2015 Constitutional No recent illness 2015 Constitutional No anorexia 03/06/2015 Constitutional No night sweats 2015 Constitutional No chills 03/06/2015 Constitutional No diaphoresis 03/06/2015 Constitutional No fatigue 03/06/2015 Constitutional No fever 03/06/2015 Constitutional No insomnia 03/06/2015 Constitutional No malaise 03/06/2015 Eyes No eye discharge 03/06/2015 Eyes No eye erythema 03/06/2015 Ears/Nose/Throat/Neck No dizziness 2015 Ears/Nose/Throat/Neck No headache 2015 Cardiovascular No chest pain/pressure Respiratory No cough 03/06/2015 Gastrointestinal No abdominal pain 2015 Gastrointestinal No constipation 2015 Gastrointestinal No diarrhea 03/06/2015 Genitourinary/Nephrology No dysuria 03/06 Musculoskeletal No joint complaint 2015 Dermatologic No rash 03/06/2015 Neurologic No alteration of consciousness 03/06/2015 Constitutional No recent illness 2014 Constitutional No anorexia 12/12/2014 Constitutional No night sweats 2014 Constitutional No chills 12/12/2014 Constitutional No fatigue 12/12/2014 Constitutional No diaphoresis 12/12/2014 Constitutional No fever 12/12/2014 Constitutional No insomnia 12/12/2014 Constitutional No malaise 12/12/2014 Constitutional No weight loss 12/12/2014 Constitutional No weight gain 12/12/2014 Eyes No eye discharge 12/12/2014 Eyes No eye erythema 12/12/2014 Ears/Nose/Throat/Neck No dizziness 2014 Ears/Nose/Throat/Neck No headache 2014 Cardiovascular No chest pain/pressure 06/2014 Respiratory No cough 12/12/2014 Gastrointestinal No abdominal pain 2014 Gastrointestinal No constipation 2014 Gastrointestinal No diarrhea 12/12/2014 Genitourinary/Nephrology No dysuria 12/12 Musculoskeletal No joint complaint 2014 Dermatologic No rash 12/12/2014 Neurologic No alteration of consciousness 12/12/2014 Constitutional No recent illness 2014 Constitutional No anorexia 11/19/2014 Constitutional No night sweats 2014 Constitutional No chills 11/19/2014 Constitutional No diaphoresis 11/19/2014 Constitutional fatigue 11/19/2014 Constitutional No fever 11/19/2014 Constitutional No insomnia 11/19/2014 Constitutional malaise 11/19/2014 Eyes No eye discharge 11/19/2014 Eyes No eye erythema 11/19/2014 Ears/Nose/Throat/Neck No dizziness 2014 Ears/Nose/Throat/Neck No headache 2014 Cardiovascular No chest pain/pressure Cardiovascular No dyspnea 11/19/2014 Cardiovascular No edema 11/19/2014 Respiratory No productive sputum 2014 Respiratory No cough 11/19/2014 Respiratory passive smoking 11/19/2014 Gastrointestinal No abdominal pain 2014 Gastrointestinal No constipation 2014 Gastrointestinal No diarrhea 11/19/2014 Gastrointestinal gastroesophageal reflux 11/19/2014 Genitourinary/Nephrology No dysuria 11/19 Musculoskeletal back pain 11/19/2014 Musculoskeletal No joint complaint 2014 Dermatologic rash 11/19/2014 Neurologic No alteration of consciousness 11/19/2014 Psychiatric No anxiety 11/19/2014 Psychiatric No depression 11/19/2014 Constitutional No recent illness 2014 Constitutional No anorexia 08/16/2014 Constitutional No night sweats 2014 Constitutional No chills 08/16/2014 Constitutional No diaphoresis 08/16/2014 Constitutional fatigue 08/16/2014 Constitutional No fever 08/16/2014 Constitutional No insomnia 08/16/2014 Constitutional No malaise 08/16/2014 Dermatologic rash 08/16/2014 Constitutional No recent illness 2014 Constitutional No anorexia 08/05/2014 Constitutional No night sweats 2014 Constitutional No chills 08/05/2014 Constitutional No diaphoresis 08/05/2014 Constitutional fatigue 08/05/2014 Constitutional No fever 08/05/2014 Constitutional No insomnia 08/05/2014 Constitutional No malaise 08/05/2014 Constitutional weight loss 08/05/2014 Constitutional No weight gain 08/05/2014 Dermatologic rash 08/05/2014 Eyes No eye discharge 08/05/2014 Eyes No eye erythema 08/05/2014 Ears/Nose/Throat/Neck No dizziness 2014 Ears/Nose/Throat/Neck No headache 2014 Cardiovascular No chest pain/pressure Cardiovascular No edema 08/05/2014 Cardiovascular No dyspnea 08/05/2014 Respiratory No productive sputum 2014 Respiratory No cough 08/05/2014 Respiratory passive smoking 08/05/2014 Gastrointestinal gastroesophageal reflux 08/05/2014 Gastrointestinal No abdominal pain 2014 Gastrointestinal No constipation 2014 Gastrointestinal No diarrhea 08/05/2014 Genitourinary/Nephrology No dysuria 08/05 Musculoskeletal No joint complaint 2014 Neurologic No alteration of consciousness 08/05/2014 Musculoskeletal back pain 08/05/2014 Psychiatric No depression 08/05/2014 Psychiatric No anxiety 08/05/2014 Hematologic/Lymphatic No abnormal bleeding and bruising 08/05/2014 Physical Exam Exam Name System Name Item Name Status Result Effective Dates Notes Full Exam - General 1994 Constitutional general appearance Overall: well developed 01/05/2017 None Full Exam - General 1994 Constitutional general appearance Overall: in no acute distress 01/05/2017 None Full Exam - General 1994 Constitutional general appearance Overall: well nourished 01/05/2017 None Full Exam - General 1994 Eyes conjunctiva /eyelids Overall: conjunctiva clear 01/05/2017 None Full Exam - General 1994 Eyes pupils and irises Overall: pupils equal, round, reactive to light and accomodation 01/05/2017 None Full Exam - General 1994 Ears/Nose/Throat otoscopic exam Overall: external auditory canals clear 01/05/2017 None Full Exam - General 1994 Ears/Nose/Throat otoscopic exam Overall: tympanic membranes clear 01/05/2017 None Full Exam - General 1994 Ears/Nose/Throat oral cavity/pharynx/larynx Overall: oral mucosa clear 01/05/2017 None Full Exam - General 1994 Respiratory auscultation Overall: breath sounds clear bilaterally 01/05/2017 None Full Exam - General 1994 Respiratory respiratory effort/rhythm Overall: no retractions 01/05/2017 None Full Exam - General 1994 Respiratory respiratory effort/rhythm Overall: normal rate 01/05/2017 None Full Exam - General 1994 Cardiovascular auscultation of heart Overall: regular rate 01/05/2017 None Full Exam - General 1994 Cardiovascular auscultation of heart Overall: normal heart sounds 01/05/2017 None Full Exam - General 1994 Cardiovascular auscultation of heart Overall: no murmurs 01/05/2017 None Full Exam - General 1994 Abdomen abdominal exam Overall: no tenderness 01/05/2017 None Full Exam - General 1994 Abdomen abdominal exam Overall: normal bowel sounds 01/05/2017 None Full Exam - General 1994 Musculoskeletal digits and nails DIPs: third 01/05/2017 None Full Exam - General 1994 Neurologic cranial nerves Overall: crainial nerves 2 - 12 grossly intact 01/05/2017 None Full Exam - General 1994 Psychiatric orientation/consciousness Overall: oriented to person, place and time 01/05/2017 None Full Exam - General 1994 Psychiatric mood and affect Overall: normal mood and affect 01/05/2017 None Full Exam - General 1994 Constitutional general appearance Overall: well developed 11/25/2016 None Full Exam - General 1994 Constitutional general appearance Overall: in no acute distress 11/25/2016 None Full Exam - General 1994 Constitutional general appearance Overall: well nourished 11/25/2016 None Full Exam - General 1994 Eyes conjunctiva /eyelids Overall: conjunctiva clear 11/25/2016 None Full Exam - General 1994 Eyes pupils and irises Overall: pupils equal, round, reactive to light and accomodation 11/25/2016 None Full Exam - General 1994 Ears/Nose/Throat otoscopic exam Overall: external auditory canals clear 11/25/2016 None Full Exam - General 1994 Ears/Nose/Throat otoscopic exam Overall: tympanic membranes clear 11/25/2016 None Full Exam - General 1994 Ears/Nose/Throat oral cavity/pharynx/larynx Overall: oral mucosa clear 11/25/2016 None Full Exam - General 1994 Respiratory auscultation Overall: breath sounds clear bilaterally 11/25/2016 None Full Exam - General 1994 Respiratory respiratory effort/rhythm Overall: no retractions 11/25/2016 None Full Exam - General 1994 Respiratory respiratory effort/rhythm Overall: normal rate 11/25/2016 None Full Exam - General 1994 Cardiovascular auscultation of heart Overall: regular rate 11/25/2016 None Full Exam - General 1994 Cardiovascular auscultation of heart Overall: normal heart sounds 11/25/2016 None Full Exam - General 1994 Cardiovascular auscultation of heart Overall: no murmurs 11/25/2016 None Full Exam - General 1994 Abdomen abdominal exam Overall: no tenderness 11/25/2016 None Full Exam - General 1994 Abdomen abdominal exam Overall: normal bowel sounds 11/25/2016 None Full Exam - General 1994 Musculoskeletal digits and nails DIPs: third 11/25/2016 None Full Exam - General 1994 Neurologic cranial nerves Overall: crainial nerves 2 - 12 grossly intact 11/25/2016 None Full Exam - General 1994 Psychiatric orientation/consciousness Overall: oriented to person, place and time 11/25/2016 None Full Exam - General 1994 Integument inspection of skin Overall: no rash, lesions 11/25/2016 None Full Exam - General 1994 Constitutional general appearance Overall: well developed 11/12/2016 None Full Exam - General 1994 Constitutional general appearance Overall: in no acute distress 11/12/2016 None Full Exam - General 1994 Constitutional general appearance Overall: well nourished 11/12/2016 None Full Exam - General 1994 Eyes conjunctiva /eyelids Overall: conjunctiva clear 11/12/2016 None Full Exam - General 1994 Eyes pupils and irises Overall: pupils equal, round, reactive to light and accomodation 11/12/2016 None Full Exam - General 1994 Ears/Nose/Throat oral cavity/pharynx/larynx Overall: oral mucosa clear 11/12/2016 None Full Exam - General 1994 Respiratory auscultation Overall: breath sounds clear bilaterally 11/12/2016 None Full Exam - General 1994 Respiratory respiratory effort/rhythm Overall: no retractions 11/12/2016 None Full Exam - General 1994 Respiratory respiratory effort/rhythm Overall: normal rate 11/12/2016 None Full Exam - General 1994 Cardiovascular auscultation of heart Overall: regular rate 11/12/2016 None Full Exam - General 1994 Cardiovascular auscultation of heart Overall: normal heart sounds 11/12/2016 None Full Exam - General 1994 Abdomen abdominal exam Overall: no tenderness 11/12/2016 None Full Exam - General 1994 Abdomen abdominal exam Overall: normal bowel sounds 11/12/2016 None Full Exam - General 1994 Neurologic cranial nerves Overall: crainial nerves 2 - 12 grossly intact 11/12/2016 None Full Exam - General 1994 Psychiatric orientation/consciousness Overall: oriented to person, place and time 11/12/2016 None Full Exam - General 1994 Ears/Nose/Throat lips/teeth/gingiva Overall: benign lips 11/12/2016 None Full Exam - General 1994 Musculoskeletal head and neck Overall: head atraumatic 11/12/2016 None Full Exam - General 1994 Musculoskeletal gait and station Overall: normal station 11/12/2016 None Full Exam - General 1994 Musculoskeletal gait and station Overall: normal gait 11/12/2016 None Full Exam - General 1994 Psychiatric mood and affect Overall: normal mood and affect 11/12/2016 None Full Exam - General 1994 Constitutional general appearance Overall: well developed 05/27/2016 None Full Exam - General 1994 Constitutional general appearance Overall: in no acute distress 05/27/2016 None Full Exam - General 1994 Constitutional general appearance Overall: well nourished 05/27/2016 None Full Exam - General 1994 Eyes conjunctiva /eyelids Overall: conjunctiva clear 05/27/2016 None Full Exam - General 1994 Eyes pupils and irises Overall: pupils equal, round, reactive to light and accomodation 05/27/2016 None Full Exam - General 1994 Ears/Nose/Throat otoscopic exam Overall: external auditory canals clear 05/27/2016 None Full Exam - General 1994 Ears/Nose/Throat otoscopic exam Overall: tympanic membranes clear 05/27/2016 None Full Exam - General 1994 Ears/Nose/Throat oral cavity/pharynx/larynx Overall: oral mucosa clear 05/27/2016 None Full Exam - General 1994 Respiratory auscultation Overall: breath sounds clear bilaterally 05/27/2016 None Full Exam - General 1994 Respiratory respiratory effort/rhythm Overall: no retractions 05/27/2016 None Full Exam - General 1994 Respiratory respiratory effort/rhythm Overall: normal rate 05/27/2016 None Full Exam - General 1994 Cardiovascular auscultation of heart Overall: regular rate 05/27/2016 None Full Exam - General 1994 Cardiovascular auscultation of heart Overall: normal heart sounds 05/27/2016 None Full Exam - General 1994 Cardiovascular auscultation of heart Overall: no murmurs 05/27/2016 None Full Exam - General 1994 Abdomen abdominal exam Overall: no tenderness 05/27/2016 None Full Exam - General 1994 Abdomen abdominal exam Overall: normal bowel sounds 05/27/2016 None Full Exam - General 1994 Musculoskeletal digits and nails DIPs: third 05/27/2016 None Full Exam - General 1994 Integument inspection of skin Location: face 05/27/2016 john k left mandaen at hair line Full Exam - General 1994 Integument inspection of skin Location: left leg 05/27/2016 None Full Exam - General 1994 Integument inspection of skin Location: right leg 05/27/2016 None Full Exam - General 1994 Integument inspection of skin Rash/Lesions: patch 05/27/2016 None Full Exam - General 1994 Integument inspection of skin Pigmentation: erythematous 05/27/2016 None Full Exam - General 1994 Neurologic cranial nerves Overall: crainial nerves 2 - 12 grossly intact 05/27/2016 None Full Exam - General 1994 Psychiatric orientation/consciousness Overall: oriented to person, place and time 05/27/2016 None Full Exam - General 1994 Constitutional general appearance Overall: well developed 05/05/2016 None Full Exam - General 1994 Constitutional general appearance Overall: well nourished 05/05/2016 None Full Exam - General 1994 Constitutional general appearance Overall: in no acute distress 05/05/2016 None Full Exam - General 1994 Eyes conjunctiva /eyelids Overall: conjunctiva clear 05/05/2016 None Full Exam - General 1994 Eyes conjunctiva /eyelids Overall: eyelids normal 05/05/2016 None Full Exam - General 1994 Eyes pupils and irises Overall: pupils equal, round, reactive to light and accomodation 05/05/2016 None Full Exam - General 1994 Ears/Nose/Throat lips/teeth/gingiva Overall: benign lips 05/05/2016 None Full Exam - General 1994 Ears/Nose/Throat oral cavity/pharynx/larynx Overall: oral mucosa clear 05/05/2016 None Full Exam - General 1994 Respiratory auscultation Overall: breath sounds clear bilaterally 05/05/2016 None Full Exam - General 1994 Respiratory respiratory effort/rhythm Overall: no retractions 05/05/2016 None Full Exam - General 1994 Respiratory respiratory effort/rhythm Overall: normal rate 05/05/2016 None Full Exam - General 1994 Cardiovascular auscultation of heart Overall: regular rate 05/05/2016 None Full Exam - General 1994 Cardiovascular auscultation of heart Overall: normal heart sounds 05/05/2016 None Full Exam - General 1994 Abdomen abdominal exam Overall: no tenderness 05/05/2016 None Full Exam - General 1994 Abdomen abdominal exam Overall: normal bowel sounds 05/05/2016 None Full Exam - General 1994 Musculoskeletal gait and station Overall: normal gait 05/05/2016 None Full Exam - General 1994 Musculoskeletal gait and station Overall: normal station 05/05/2016 None Full Exam - General 1994 Musculoskeletal head and neck Overall: head atraumatic 05/05/2016 None Full Exam - General 1994 Neurologic cranial nerves Overall: crainial nerves 2 - 12 grossly intact 05/05/2016 None Full Exam - General 1994 Psychiatric orientation/consciousness Overall: oriented to person, place and time 05/05/2016 None Full Exam - General 1994 Psychiatric mood and affect Overall: normal mood and affect 05/05/2016 None Full Exam - General 1994 Psychiatric appearance Overall: well-groomed, good eye contact 05/05/2016 None Full Exam - General 1994 Constitutional general appearance Overall: well developed 11/12/2015 None Full Exam - General 1994 Constitutional general appearance Overall: in no acute distress 11/12/2015 None Full Exam - General 1994 Constitutional general appearance Overall: well nourished 11/12/2015 None Full Exam - General 1994 Eyes conjunctiva /eyelids Overall: conjunctiva clear 11/12/2015 None Full Exam - General 1994 Eyes pupils and irises Overall: pupils equal, round, reactive to light and accomodation 11/12/2015 None Full Exam - General 1994 Ears/Nose/Throat otoscopic exam Overall: external auditory canals clear 11/12/2015 None Full Exam - General 1994 Ears/Nose/Throat otoscopic exam Overall: tympanic membranes clear 11/12/2015 None Full Exam - General 1994 Ears/Nose/Throat oral cavity/pharynx/larynx Overall: oral mucosa clear 11/12/2015 None Full Exam - General 1994 Respiratory auscultation Overall: breath sounds clear bilaterally 11/12/2015 None Full Exam - General 1994 Respiratory respiratory effort/rhythm Overall: no retractions 11/12/2015 None Full Exam - General 1994 Respiratory respiratory effort/rhythm Overall: normal rate 11/12/2015 None Full Exam - General 1994 Cardiovascular auscultation of heart Overall: regular rate 11/12/2015 None Full Exam - General 1994 Cardiovascular auscultation of heart Overall: normal heart sounds 11/12/2015 None Full Exam - General 1994 Cardiovascular auscultation of heart Overall: no murmurs 11/12/2015 None Full Exam - General 1994 Abdomen abdominal exam Overall: no tenderness 11/12/2015 None Full Exam - General 1994 Abdomen abdominal exam Overall: normal bowel sounds 11/12/2015 None Full Exam - General 1994 Musculoskeletal digits and nails DIPs: third 11/12/2015 None Full Exam - General 1994 Integument inspection of skin Location: face 11/12/2015 john k left mandaen at hair line Full Exam - General 1994 Integument inspection of skin Location: left leg 11/12/2015 None Full Exam - General 1994 Integument inspection of skin Location: right leg 11/12/2015 None Full Exam - General 1994 Integument inspection of skin Rash/Lesions: patch 11/12/2015 None Full Exam - General 1994 Integument inspection of skin Pigmentation: erythematous 11/12/2015 None Full Exam - General 1994 Neurologic cranial nerves Overall: crainial nerves 2 - 12 grossly intact 11/12/2015 None Full Exam - General 1994 Psychiatric orientation/consciousness Overall: oriented to person, place and time 11/12/2015 None Full Exam - General 1994 Constitutional general appearance Overall: well developed 10/16/2015 None Full Exam - General 1994 Constitutional general appearance Overall: in no acute distress 10/16/2015 None Full Exam - General 1994 Constitutional general appearance Overall: well nourished 10/16/2015 None Full Exam - General 1994 Eyes conjunctiva /eyelids Overall: conjunctiva clear 10/16/2015 None Full Exam - General 1994 Eyes pupils and irises Overall: pupils equal, round, reactive to light and accomodation 10/16/2015 None Full Exam - General 1994 Ears/Nose/Throat otoscopic exam Overall: external auditory canals clear 10/16/2015 None Full Exam - General 1994 Ears/Nose/Throat otoscopic exam Overall: tympanic membranes clear 10/16/2015 None Full Exam - General 1994 Ears/Nose/Throat oral cavity/pharynx/larynx Overall: oral mucosa clear 10/16/2015 None Full Exam - General 1994 Respiratory auscultation Overall: breath sounds clear bilaterally 10/16/2015 None Full Exam - General 1994 Respiratory respiratory effort/rhythm Overall: no retractions 10/16/2015 None Full Exam - General 1994 Respiratory respiratory effort/rhythm Overall: normal rate 10/16/2015 None Full Exam - General 1994 Cardiovascular auscultation of heart Overall: regular rate 10/16/2015 None Full Exam - General 1994 Cardiovascular auscultation of heart Overall: normal heart sounds 10/16/2015 None Full Exam - General 1994 Abdomen abdominal exam Overall: no tenderness 10/16/2015 None Full Exam - General 1994 Abdomen abdominal exam Overall: normal bowel sounds 10/16/2015 None Full Exam - General 1994 Neurologic cranial nerves Overall: crainial nerves 2 - 12 grossly intact 10/16/2015 None Full Exam - General 1994 Psychiatric orientation/consciousness Overall: oriented to person, place and time 10/16/2015 None Full Exam - General 1994 Ears/Nose/Throat lips/teeth/gingiva Overall: benign lips 10/16/2015 None Full Exam - General 1994 Ears/Nose/Throat oral cavity/pharynx/larynx Overall: oropharyngeal mucosa clear 10/16/2015 None Full Exam - General 1994 Ears/Nose/Throat oral cavity/pharynx/larynx Overall: no masses 10/16/2015 None Full Exam - General 1994 Cardiovascular extremities Overall: no clubbing 10/16/2015 None Full Exam - General 1994 Lymphatic neck nodes Overall: anterior cervical chain benign 10/16/2015 None Full Exam - General 1994 Lymphatic neck nodes Overall: posterior cervical chain benign 10/16/2015 None Full Exam - General 1994 Musculoskeletal head and neck Overall: head atraumatic 10/16/2015 None Full Exam - General 1994 Musculoskeletal spine, ribs and pelvis Overall: spine benign 10/16/2015 None Full Exam - General 1994 Integument inspection of skin Overall: few scattered moles, no gross abnormalities 10/16/2015 None Full Exam - General 1994 Psychiatric mood and affect Overall: normal mood and affect 10/16/2015 None Full Exam - General 1994 Psychiatric appearance Overall: well-groomed, good eye contact 10/16/2015 None Full Exam - General 1994 Constitutional general appearance Overall: well developed 07/10/2015 None Full Exam - General 1994 Constitutional general appearance Overall: in no acute distress 07/10/2015 None Full Exam - General 1994 Constitutional general appearance Overall: well nourished 07/10/2015 None Full Exam - General 1994 Eyes conjunctiva /eyelids Overall: conjunctiva clear 07/10/2015 None Full Exam - General 1994 Eyes pupils and irises Overall: pupils equal, round, reactive to light and accomodation 07/10/2015 None Full Exam - General 1994 Ears/Nose/Throat otoscopic exam Overall: external auditory canals clear 07/10/2015 None Full Exam - General 1994 Ears/Nose/Throat otoscopic exam Overall: tympanic membranes clear 07/10/2015 None Full Exam - General 1994 Ears/Nose/Throat oral cavity/pharynx/larynx Overall: oral mucosa clear 07/10/2015 None Full Exam - General 1994 Respiratory auscultation Overall: breath sounds clear bilaterally 07/10/2015 None Full Exam - General 1994 Respiratory respiratory effort/rhythm Overall: no retractions 07/10/2015 None Full Exam - General 1994 Respiratory respiratory effort/rhythm Overall: normal rate 07/10/2015 None Full Exam - General 1994 Cardiovascular auscultation of heart Overall: regular rate 07/10/2015 None Full Exam - General 1994 Cardiovascular auscultation of heart Overall: normal heart sounds 07/10/2015 None Full Exam - General 1994 Cardiovascular auscultation of heart Overall: no murmurs 07/10/2015 None Full Exam - General 1994 Abdomen abdominal exam Overall: no tenderness 07/10/2015 None Full Exam - General 1994 Abdomen abdominal exam Overall: normal bowel sounds 07/10/2015 None Full Exam - General 1994 Integument inspection of skin Location: face 07/10/2015 john k left mandaen at hair line Full Exam - General 1994 Integument inspection of skin Location: left leg 07/10/2015 None Full Exam - General 1994 Integument inspection of skin Location: right leg 07/10/2015 None Full Exam - General 1994 Integument inspection of skin Rash/Lesions: patch 07/10/2015 None Full Exam - General 1994 Integument inspection of skin Pigmentation: erythematous 07/10/2015 None Full Exam - General 1994 Neurologic cranial nerves Overall: crainial nerves 2 - 12 grossly intact 07/10/2015 None Full Exam - General 1994 Psychiatric orientation/consciousness Overall: oriented to person, place and time 07/10/2015 None Full Exam - General 1994 Musculoskeletal digits and nails DIPs: third 07/10/2015 None Full Exam - General 1994 Constitutional general appearance Overall: well developed 04/10/2015 None Full Exam - General 1994 Constitutional general appearance Overall: in no acute distress 04/10/2015 None Full Exam - General 1994 Constitutional general appearance Overall: well nourished 04/10/2015 None Full Exam - General 1994 Respiratory auscultation Overall: breath sounds clear bilaterally 04/10/2015 None Full Exam - General 1994 Respiratory respiratory effort/rhythm Overall: no retractions 04/10/2015 None Full Exam - General 1994 Respiratory respiratory effort/rhythm Overall: normal rate 04/10/2015 None Full Exam - General 1994 Cardiovascular auscultation of heart Overall: regular rate 04/10/2015 None Full Exam - General 1994 Cardiovascular auscultation of heart Overall: normal heart sounds 04/10/2015 None Full Exam - General 1994 Integument inspection of skin Location: face 04/10/2015 john k left mandaen at hair line Full Exam - General 1994 Psychiatric orientation/consciousness Overall: oriented to person, place and time 04/10/2015 None Full Exam - General 1994 Eyes conjunctiva /eyelids Overall: conjunctiva clear 04/10/2015 None Full Exam - General 1994 Eyes pupils and irises Overall: pupils equal, round, reactive to light and accomodation 04/10/2015 None Full Exam - General 1994 Ears/Nose/Throat otoscopic exam Overall: external auditory canals clear 04/10/2015 None Full Exam - General 1994 Ears/Nose/Throat otoscopic exam Overall: tympanic membranes clear 04/10/2015 None Full Exam - General 1994 Ears/Nose/Throat oral cavity/pharynx/larynx Overall: oral mucosa clear 04/10/2015 None Full Exam - General 1994 Cardiovascular auscultation of heart Overall: no murmurs 04/10/2015 None Full Exam - General 1994 Abdomen abdominal exam Overall: no tenderness 04/10/2015 None Full Exam - General 1994 Abdomen abdominal exam Overall: normal bowel sounds 04/10/2015 None Full Exam - General 1994 Lymphatic neck nodes Overall: anterior cervical chain benign 04/10/2015 None Full Exam - General 1994 Lymphatic neck nodes Overall: posterior cervical chain benign 04/10/2015 None Full Exam - General 1994 Musculoskeletal head and neck Overall: head atraumatic 04/10/2015 None Full Exam - General 1994 Integument inspection of skin Location: left leg 04/10/2015 None Full Exam - General 1994 Integument inspection of skin Location: right leg 04/10/2015 None Full Exam - General 1994 Integument inspection of skin Rash/Lesions: patch 04/10/2015 None Full Exam - General 1994 Integument inspection of skin Pigmentation: erythematous 04/10/2015 None Full Exam - General 1994 Neurologic cranial nerves Overall: crainial nerves 2 - 12 grossly intact 04/10/2015 None Full Exam - General 1994 Constitutional general appearance Overall: well developed 03/18/2015 None Full Exam - General 1994 Constitutional general appearance Overall: in no acute distress 03/18/2015 None Full Exam - General 1994 Constitutional general appearance Overall: well nourished 03/18/2015 None Full Exam - General 1994 Eyes conjunctiva /eyelids Overall: conjunctiva clear 03/18/2015 None Full Exam - General 1994 Eyes pupils and irises Overall: pupils equal, round, reactive to light and accomodation 03/18/2015 None Full Exam - General 1994 Ears/Nose/Throat otoscopic exam Overall: external auditory canals clear 03/18/2015 None Full Exam - General 1994 Ears/Nose/Throat oral cavity/pharynx/larynx Overall: oral mucosa clear 03/18/2015 None Full Exam - General 1994 Respiratory auscultation Overall: breath sounds clear bilaterally 03/18/2015 None Full Exam - General 1994 Respiratory respiratory effort/rhythm Overall: no retractions 03/18/2015 None Full Exam - General 1994 Respiratory respiratory effort/rhythm Overall: normal rate 03/18/2015 None Full Exam - General 1994 Cardiovascular auscultation of heart Overall: regular rate 03/18/2015 None Full Exam - General 1994 Cardiovascular auscultation of heart Overall: normal heart sounds 03/18/2015 None Full Exam - General 1994 Cardiovascular auscultation of heart Overall: no murmurs 03/18/2015 None Full Exam - General 1994 Abdomen abdominal exam Overall: no tenderness 03/18/2015 None Full Exam - General 1994 Abdomen abdominal exam Overall: normal bowel sounds 03/18/2015 None Full Exam - General 1994 Lymphatic neck nodes Overall: anterior cervical chain benign 03/18/2015 None Full Exam - General 1994 Lymphatic neck nodes Overall: posterior cervical chain benign 03/18/2015 None Full Exam - General 1994 Musculoskeletal head and neck Overall: head atraumatic 03/18/2015 None Full Exam - General 1994 Neurologic cranial nerves Overall: crainial nerves 2 - 12 grossly intact 03/18/2015 None Full Exam - General 1994 Psychiatric orientation/consciousness Overall: oriented to person, place and time 03/18/2015 None Full Exam - General 1994 Ears/Nose/Throat otoscopic exam Tympanic membrane: erythematous 03/18/2015 None Full Exam - General 1994 Ears/Nose/Throat otoscopic exam Tympanic membrane: air- fluid level 03/18/2015 None Full Exam - General 1994 Musculoskeletal gait and station Overall: normal gait 03/18/2015 None Full Exam - General 1994 Musculoskeletal gait and station Overall: normal station 03/18/2015 None Full Exam - General 1994 Ears/Nose/Throat internal nose Sinus tenderness: left maxillary 03/18/2015 None Full Exam - General 1994 Ears/Nose/Throat internal nose Sinus tenderness: right maxillary 03/18/2015 None Full Exam - General 1994 Constitutional general appearance Overall: well developed 03/06/2015 None Full Exam - General 1994 Constitutional general appearance Overall: in no acute distress 03/06/2015 None Full Exam - General 1994 Constitutional general appearance Overall: well nourished 03/06/2015 None Full Exam - General 1994 Respiratory auscultation Overall: breath sounds clear bilaterally 03/06/2015 None Full Exam - General 1994 Respiratory respiratory effort/rhythm Overall: no retractions 03/06/2015 None Full Exam - General 1994 Respiratory respiratory effort/rhythm Overall: normal rate 03/06/2015 None Full Exam - General 1994 Cardiovascular auscultation of heart Overall: regular rate 03/06/2015 None Full Exam - General 1994 Cardiovascular auscultation of heart Overall: normal heart sounds 03/06/2015 None Full Exam - General 1994 Integument inspection of skin Location: face 03/06/2015 john k left mandaen at hair line Full Exam - General 1994 Psychiatric orientation/consciousness Overall: oriented to person, place and time 03/06/2015 None Full Exam - General 1994 Eyes conjunctiva /eyelids Overall: conjunctiva clear 03/06/2015 None Full Exam - General 1994 Eyes pupils and irises Overall: pupils equal, round, reactive to light and accomodation 03/06/2015 None Full Exam - General 1994 Ears/Nose/Throat otoscopic exam Overall: external auditory canals clear 03/06/2015 None Full Exam - General 1994 Ears/Nose/Throat otoscopic exam Overall: tympanic membranes clear 03/06/2015 None Full Exam - General 1994 Ears/Nose/Throat oral cavity/pharynx/larynx Overall: oral mucosa clear 03/06/2015 None Full Exam - General 1994 Cardiovascular auscultation of heart Overall: no murmurs 03/06/2015 None Full Exam - General 1994 Abdomen abdominal exam Overall: no tenderness 03/06/2015 None Full Exam - General 1994 Abdomen abdominal exam Overall: normal bowel sounds 03/06/2015 None Full Exam - General 1994 Lymphatic neck nodes Overall: anterior cervical chain benign 03/06/2015 None Full Exam - General 1994 Lymphatic neck nodes Overall: posterior cervical chain benign 03/06/2015 None Full Exam - General 1994 Musculoskeletal head and neck Overall: head atraumatic 03/06/2015 None Full Exam - General 1994 Integument inspection of skin Location: left leg 03/06/2015 None Full Exam - General 1994 Integument inspection of skin Location: right leg 03/06/2015 None Full Exam - General 1994 Integument inspection of skin Rash/Lesions: patch 03/06/2015 None Full Exam - General 1994 Integument inspection of skin Pigmentation: erythematous 03/06/2015 None Full Exam - General 1994 Neurologic cranial nerves Overall: crainial nerves 2 - 12 grossly intact 03/06/2015 None Full Exam - General 1994 Constitutional general appearance Overall: well developed 12/12/2014 None Full Exam - General 1994 Constitutional general appearance Overall: in no acute distress 12/12/2014 None Full Exam - General 1994 Constitutional general appearance Overall: well nourished 12/12/2014 None Full Exam - General 1994 Psychiatric orientation/consciousness Overall: oriented to person, place and time 12/12/2014 None Full Exam - General 1994 Integument inspection of skin Location: face 12/12/2014 john k left mandaen at hair line Full Exam - General 1994 Respiratory auscultation Overall: breath sounds clear bilaterally 12/12/2014 None Full Exam - General 1994 Respiratory respiratory effort/rhythm Overall: no retractions 12/12/2014 None Full Exam - General 1994 Respiratory respiratory effort/rhythm Overall: normal rate 12/12/2014 None Full Exam - General 1994 Cardiovascular auscultation of heart Overall: normal heart sounds 12/12/2014 None Full Exam - General 1994 Cardiovascular auscultation of heart Overall: regular rate 12/12/2014 None Full Exam - General 1994 Constitutional general appearance Overall: well developed 11/19/2014 None Full Exam - General 1994 Constitutional general appearance Overall: in no acute distress 11/19/2014 None Full Exam - General 1994 Constitutional general appearance Overall: well nourished 11/19/2014 None Full Exam - General 1994 Eyes conjunctiva /eyelids Overall: conjunctiva clear 11/19/2014 None Full Exam - General 1994 Eyes pupils and irises Overall: pupils equal, round, reactive to light and accomodation 11/19/2014 None Full Exam - General 1994 Ears/Nose/Throat otoscopic exam Overall: external auditory canals clear 11/19/2014 None Full Exam - General 1994 Ears/Nose/Throat otoscopic exam Overall: tympanic membranes clear 11/19/2014 None Full Exam - General 1994 Ears/Nose/Throat oral cavity/pharynx/larynx Overall: oral mucosa clear 11/19/2014 None Full Exam - General 1994 Respiratory auscultation Overall: breath sounds clear bilaterally 11/19/2014 None Full Exam - General 1994 Respiratory respiratory effort/rhythm Overall: no retractions 11/19/2014 None Full Exam - General 1994 Respiratory respiratory effort/rhythm Overall: normal rate 11/19/2014 None Full Exam - General 1994 Cardiovascular auscultation of heart Overall: regular rate 11/19/2014 None Full Exam - General 1994 Cardiovascular auscultation of heart Overall: normal heart sounds 11/19/2014 None Full Exam - General 1994 Cardiovascular auscultation of heart Overall: no murmurs 11/19/2014 None Full Exam - General 1994 Abdomen abdominal exam Overall: no tenderness 11/19/2014 None Full Exam - General 1994 Abdomen abdominal exam Overall: normal bowel sounds 11/19/2014 None Full Exam - General 1994 Lymphatic neck nodes Overall: anterior cervical chain benign 11/19/2014 None Full Exam - General 1994 Lymphatic neck nodes Overall: posterior cervical chain benign 11/19/2014 None Full Exam - General 1994 Musculoskeletal head and neck Overall: head atraumatic 11/19/2014 None Full Exam - General 1994 Integument inspection of skin Location: left leg 11/19/2014 None Full Exam - General 1994 Integument inspection of skin Location: right leg 11/19/2014 None Full Exam - General 1994 Integument inspection of skin Rash/Lesions: patch 11/19/2014 None Full Exam - General 1994 Integument inspection of skin Pigmentation: erythematous 11/19/2014 None Full Exam - General 1994 Neurologic cranial nerves Overall: crainial nerves 2 - 12 grossly intact 11/19/2014 None Full Exam - General 1994 Psychiatric orientation/consciousness Overall: oriented to person, place and time 11/19/2014 None Full Exam - General 1994 Constitutional general appearance Overall: well developed 08/16/2014 None Full Exam - General 1994 Constitutional general appearance Overall: in no acute distress 08/16/2014 None Full Exam - General 1994 Constitutional general appearance Overall: well nourished 08/16/2014 None Full Exam - General 1994 Respiratory respiratory effort/rhythm Overall: no retractions 08/16/2014 None Full Exam - General 1994 Respiratory respiratory effort/rhythm Overall: normal rate 08/16/2014 None Full Exam - General 1994 Cardiovascular auscultation of heart Overall: regular rate 08/16/2014 None Full Exam - General 1994 Cardiovascular auscultation of heart Overall: normal heart sounds 08/16/2014 None Full Exam - General 1994 Integument inspection of skin Location: left leg 08/16/2014 --Improved Full Exam - General 1994 Integument inspection of skin Location: right leg 08/16/2014 --Improved and excoriated areas on bilateral feet healing Full Exam - General 1994 Integument inspection of skin Rash/Lesions: patch 08/16/2014 --Improved Full Exam - General 1994 Integument inspection of skin Pigmentation: erythematous 08/16/2014 --Improved Full Exam - General 1994 Psychiatric orientation/consciousness Overall: oriented to person, place and time 08/16/2014 None Full Exam - General 1994 Constitutional general appearance Overall: well nourished 08/05/2014 None Full Exam - General 1994 Constitutional general appearance Overall: in no acute distress 08/05/2014 None Full Exam - General 1994 Constitutional general appearance Overall: well developed 08/05/2014 None Full Exam - General 1994 Psychiatric orientation/consciousness Overall: oriented to person, place and time 08/05/2014 None Full Exam - General 1994 Neurologic cranial nerves Overall: crainial nerves 2 - 12 grossly intact 08/05/2014 None Full Exam - General 1994 Integument inspection of skin Location: left leg 08/05/2014 None Full Exam - General 1994 Integument inspection of skin Location: right leg 08/05/2014 None Full Exam - General 1994 Integument inspection of skin Rash/Lesions: patch 08/05/2014 None Full Exam - General 1994 Integument inspection of skin Pigmentation: erythematous 08/05/2014 None Full Exam - General 1994 Musculoskeletal head and neck Overall: head atraumatic 08/05/2014 None Full Exam - General 1994 Lymphatic neck nodes Overall: anterior cervical chain benign 08/05/2014 None Full Exam - General 1994 Lymphatic neck nodes Overall: posterior cervical chain benign 08/05/2014 None Full Exam - General 1994 Abdomen abdominal exam Overall: no tenderness 08/05/2014 None Full Exam - General 1994 Abdomen abdominal exam Overall: normal bowel sounds 08/05/2014 None Full Exam - General 1994 Cardiovascular auscultation of heart Overall: regular rate 08/05/2014 None Full Exam - General 1994 Cardiovascular auscultation of heart Overall: normal heart sounds 08/05/2014 None Full Exam - General 1994 Cardiovascular auscultation of heart Overall: no murmurs 08/05/2014 None Full Exam - General 1994 Respiratory auscultation Overall: breath sounds clear bilaterally 08/05/2014 None Full Exam - General 1994 Respiratory respiratory effort/rhythm Overall: no retractions 08/05/2014 None Full Exam - General 1994 Respiratory respiratory effort/rhythm Overall: normal rate 08/05/2014 None Full Exam - General 1994 Ears/Nose/Throat otoscopic exam Overall: external auditory canals clear 08/05/2014 None Full Exam - General 1994 Ears/Nose/Throat otoscopic exam Overall: tympanic membranes clear 08/05/2014 None Full Exam - General 1994 Ears/Nose/Throat oral cavity/pharynx/larynx Overall: oral mucosa clear 08/05/2014 None Full Exam - General 1994 Eyes conjunctiva /eyelids Overall: conjunctiva clear 08/05/2014 None Full Exam - General 1994 Eyes pupils and irises Overall: pupils equal, round, reactive to light and accomodation 08/05/2014 None Procedures Procedure Codes Date IMMUNIZATION ADMIN CPT -4: 58597 11/25/2016 FLU VAC NO PRSV 4 JEAN-CLAUDE 3 YRS+ CPT-4: 31617 11/25/2016 ADMIN INFLUENZA VIRUS VAC CPT-4: G0008 11/12/2015 FLU VACC 4 JEAN-CLAUDE 3 YRS PLUS IM SNOMED CT: [id number] CPT-4: 03906 11/12/2015 PPPS, SUBSEQ VISIT CPT -4: G0439 10/16/2015 ADMIN INFLUENZA VIRUS VAC Formatting Model/CDA Sections, Assigned to CPT-4: [id number] 11/19/2014 FLU VAC NO PRSV 4 JEAN-CLAUDE 3 YRS+ CPT-4: 64188 11/19/2014 Vital Signs Date Vital 01/05/2017 Blood Pressure 1: 138/74 Code : 8480-6 Blood Pressure 1: 146/76 Code: 8480-6 BMI: 24.0 Code: 38155-9 Heart Rate 1: 64 bpm Heart Rate 1: 64 bpm Height: 5'4" Respiratory Rate: 20 bpm SpO2: 98% Weight: 140 lbs 11/25/2016 Blood Pressure 1: 142/78 Code : 8480-6 BMI: 24.3 Code : 85952-0 Heart Rate 1 : 62 bpm Height: 5'4" SpO2: 95% Weight: 141 lbs 8 oz 11/12/2016 Blood Pressure 1: 132/68 Code : 8480-6 BMI: 24.9 Code : 08710-3 Heart Rate 1 : 64 bpm Height: 5'4" SpO2: 96% Weight: 145 lbs 05/27/2016 Blood Pressure 1: 132/76 Code : 8480-6 BMI: 25.1 Code : 06245-2 Heart Rate 1 : 67 bpm Height: 5'4" SpO2: 98% Weight: 146 lbs 05/05/2016 Blood Pressure 1: 120/62 Code : 8480-6 BMI: 24.9 Code : 95641-6 Heart Rate 1 : 60 bpm Height: 5'4" SpO2: 95% Weight: 145 lbs 11/12/2015 Blood Pressure 1: 136/78 Code : 8480-6 BMI: 24.2 Code : 01046-8 Heart Rate 1 : 65 bpm Height: 5'4" SpO2: 98% Weight: 141 lbs 10/16/2015 Blood Pressure 1: 118/64 Code : 8480-6 BMI: 24.0 Code : 55115-4 Heart Rate 1 : 63 bpm Height: 5'4" SpO2: 94% Weight: 140 lbs 07/10/2015 Blood Pressure 1: 120/68 Code : 8480-6 BMI: 23.3 Code : 39815-3 Heart Rate 1 : 59 bpm Height: 5'4" SpO2: 97% Weight: 136 lbs 04/10/2015 Blood Pressure 1: 120/60 Code : 8480-6 BMI: 23.3 Code : 21690-3 Heart Rate 1 : 62 bpm Height: 5'4" SpO2: 93% Weight: 136 lbs 03/18/2015 Blood Pressure 1: 120/58 Code : 8480-6 BMI: 23.3 Code : 97757-6 Heart Rate 1 : 81 bpm Height: 5'4" SpO2: 98% Weight: 136 lbs 03/06/2015 Blood Pressure 1: 128/74 Code : 8480-6 BMI: 23.2 Code : 40898-7 Heart Rate 1 : 68 bpm Height: 5'4" SpO2: 94% Weight: 135 lbs 12/12/2014 Blood Pressure 1: 120/68 Code : 8480-6 BMI: 23.2 Code : 75939-4 Heart Rate 1 : 58 bpm Height: 5'4" SpO2: 96% Weight: 135 lbs 11/19/2014 Blood Pressure 1: 136/72 Code : 8480-6 BMI: 23.5 Code : 15749-9 Heart Rate 1 : 70 bpm Height: 5'4" SpO2: 96% Weight: 137 lbs 08/16/2014 Blood Pressure 1: 130/60 Code : 8480-6 BMI: 24.7 Code : 87175-6 Heart Rate 1 : 63 bpm Height: 5'4" SpO2: 96% Weight: 144 lbs 08/05/2014 Blood Pressure 1: 136/74 Code : 8480-6 BMI: 24.4 Code : 29576-6 Heart Rate 1 : 60 bpm Height: 5'4" Weight: 142 lbs Functional Status No Functional Status data History of Present Illness Symptom Name Status Result Effective Date Notes hypertension Onset and Resolution ongoing 01/05/2017 None hypertension Onset of Symptom during adulthood 01/05/2017 None hypertension Alleviating Factors medication 01/05/2017 None hypertension Pertinent Findings decreased energy 01/05/2017 None hypertension Pertinent Findings dyspnea 01/05/2017 "sometimes" if she is in a hurry hypertension Pertinent Findings Denies edema 01/05/2017 None diabetes mellitus Quality non-insulin dependent 01/05/2017 None diabetes mellitus Alleviating Factors medication 01/05/2017 None diabetes mellitus Exacerbating Factors diet 01/05/2017 None diabetes mellitus Nutrition regular diet 01/05/2017 None diabetes mellitus Pertinent Findings Denies nausea 01/05/2017 None hypertension Quality primary hypertension 01/05/2017 None hypertension Blood Pressure Values not checking blood pressure at home 01/05/2017 None hypertension Pertinent Findings Denies dizziness 01/05/2017 None diabetes mellitus Test results Pt checking blood glucose readings, did not bring results to clinic 01/05/2017 None diabetes mellitus Glucose monitoring daily 01/05/2017 None hypertension Onset and Resolution ongoing 11/25/2016 None hypertension Onset of Symptom during adulthood 11/25/2016 None hypertension Blood Pressure Values patient checking blood pressure at home - did not bring in readings 11/25/2016 None hypertension Alleviating Factors medication 11/25/2016 None hypertension Pertinent Findings dyspnea 11/25/2016 -occasionally hypertension Pertinent Findings Denies edema 11/25/2016 None diabetes mellitus Quality non-insulin dependent 11/25/2016 None diabetes mellitus Alleviating Factors medication 11/25/2016 None diabetes mellitus Exacerbating Factors diet 11/25/2016 None diabetes mellitus Nutrition regular diet 11/25/2016 None diabetes mellitus Pertinent Findings Denies nausea 11/25/2016 "sometimes" hyperlipidemia Onset and Resolution gradual in onset 11/25/2016 None hyperlipidemia Onset and Resolution ongoing 11/25/2016 None hyperlipidemia Onset of Symptom during adulthood 11/25/2016 None hyperlipidemia Alleviating Factors medication 11/25/2016 None hyperlipidemia Exacerbating Factors diet 11/25/2016 None cough Location in the throat 11/25/2016 None cough Quality constant 11/25/2016 None cough Quality dry None hypertension Pertinent Findings decreased energy 11/25/2016 None diabetes mellitus Test results Pt checking blood glucose readings, did not bring results to clinic 11/25/2016 None diabetes mellitus Blood glucose levels greater than 120 11/25/2016 None diabetes mellitus Glucose monitoring occasional glucose testing 11/25/2016 None diabetes mellitus Glucose monitoring bedtime 11/25/2016 None diabetes mellitus Pertinent Findings lethargy 11/25/2016 None diabetes mellitus Pertinent Findings Denies dizziness 11/25/2016 None diabetes mellitus Pertinent Findings dyspnea 11/25/2016 intermittently cough Quality improving 11/25/2016 None cough Onset and Resolution resolved 11/25/2016 None vaccination against influenza Location deltoid-Lt 11/25/2016 None cough Location in the throat 11/12/2016 None cough Quality dry 07/2016 None cough Quality constant 11/12/2016 None cough Onset and Resolution ongoing 11/12/2016 None hypertension Onset and Resolution ongoing 05/27/2016 None hypertension Onset of Symptom during adulthood 05/27/2016 None diabetes mellitus Nutrition regular diet 05/27/2016 None hypertension Alleviating Factors medication 05/27/2016 None hypertension Pertinent Findings dizziness 05/27/2016 "sometimes"- not often hypertension Pertinent Findings dyspnea 05/27/2016 -occasionally hypertension Pertinent Findings Denies edema 05/27/2016 None hyperlipidemia Onset and Resolution gradual in onset 05/27/2016 None hyperlipidemia Onset and Resolution ongoing 05/27/2016 None hyperlipidemia Onset of Symptom during adulthood 05/27/2016 None hyperlipidemia Alleviating Factors medication 05/27/2016 None hyperlipidemia Exacerbating Factors diet 05/27/2016 None diabetes mellitus Alleviating Factors medication 05/27/2016 None diabetes mellitus Exacerbating Factors diet 05/27/2016 None diabetes mellitus Pertinent Findings nausea 05/27/2016 "sometimes" hypertension Blood Pressure Values patient checking blood pressure at home - did not bring in readings 05/27/2016 None diabetes mellitus Test results Pt checking blood glucose readings, did not bring results to clinic 05/27/2016 Pt reports that she only has had one elevated glucose to the 140's - she thinks that her average blood glucose is 135. She states that it has been as low as 110 diabetes mellitus Glucose monitoring daily 05/27/2016 None diabetes mellitus Quality non-insulin dependent 05/27/2016 None hypertension Onset and Resolution ongoing 05/05/2016 None hypertension Onset of Symptom during adulthood 05/05/2016 None diabetes mellitus Quality insulin dependent 05/05/2016 None diabetes mellitus Test results Pt checking blood glucose readings, did not bring results to clinic 05/05/2016 None diabetes mellitus Glucose monitoring bedtime 05/05/2016 None diabetes mellitus Nutrition regular diet 05/05/2016 None diabetes mellitus Exercise minimal exercise 05/05/2016 None hypertension Onset and Resolution ongoing 11/12/2015 None hypertension Onset of Symptom during adulthood 11/12/2015 None hypertension Blood Pressure Values not checking blood pressure at home 11/12/2015 None hypertension Alleviating Factors medication 11/12/2015 None hypertension Pertinent Findings Denies dizziness 11/12/2015 None hypertension Pertinent Findings Denies dyspnea 11/12/2015 None hypertension Pertinent Findings Denies edema 11/12/2015 None hyperlipidemia Onset and Resolution gradual in onset 11/12/2015 None hyperlipidemia Onset and Resolution ongoing 11/12/2015 None diabetes mellitus Quality non-insulin dependent 11/12/2015 None diabetes mellitus Test results Pt checking blood glucose readings, did not bring results to clinic 11/12/2015 None diabetes mellitus Glucose monitoring daily 11/12/2015 None diabetes mellitus Alleviating Factors medication 11/12/2015 None diabetes mellitus Exacerbating Factors diet 11/12/2015 None diabetes mellitus Pertinent Findings Denies dizziness 11/12/2015 None diabetes mellitus Pertinent Findings Denies dyspnea 11/12/2015 None diabetes mellitus Pertinent Findings Denies nausea 11/12/2015 None hyperlipidemia Onset of Symptom during adulthood 11/12/2015 None hyperlipidemia Alleviating Factors medication 11/12/2015 None hyperlipidemia Exacerbating Factors diet 11/12/2015 None Annual Medicare Wellness Exam Alcohol Use does not drink any alcohol 10/16/2015 None Annual Medicare Wellness Exam Aspirin Use no 10/16/2015 None Annual Medicare Wellness Exam Blood Glucose (self reported) high (126 or higher) 10/16/2015 None Annual Medicare Wellness Exam Blood Pressure (self reported ) low / normal (120/80) 10/16/2015 None Annual Medicare Wellness Exam Cholesterol (self reported) don't know 10/16/2015 None Annual Medicare Wellness Exam Depression (last 6 months) almost never 10/16/2015 None Annual Medicare Wellness Exam Depression or Hopelessness almost never 10/16/2015 None Annual Medicare Wellness Exam Describe Your Health good 10/16/2015 None Annual Medicare Wellness Exam Exercise Habits does not exercise 10/16/2015 None Annual Medicare Wellness Exam Handling Stress usually luis effectively 10/16/2015 None Annual Medicare Wellness Exam Hemaglobin A-1C (self reported ) don't know 10/16/2015 None Annual Medicare Wellness Exam Hours of Sleep 8 10/16/2015 None Annual Medicare Wellness Exam Interaction with Friends no 10/16/2015 None Annual Medicare Wellness Exam Interests & Pleasure almost all of the time 10/16/2015 None Annual Medicare Wellness Exam Life Satisfaction satisfied 10/16/2015 None Annual Medicare Wellness Exam Motor Vehicle Safety always fastens seat belt: y 10/16/2015 None Annual Medicare Wellness Exam Motor Vehicle Safety drives after drinking: n 10/16/2015 None Annual Medicare Wellness Exam Motor Vehicle Safety rides with someone who has been drinking: n 2015 None Annual Medicare Wellness Exam Nutrition servings of fried food / high fat foods per day: 0 2015 None Annual Medicare Wellness Exam Nutrition servings of high fiber / whole grain per day: 2 10/16/2015 None Annual Medicare Wellness Exam Nutrition servings of vegetables / fruit per day: 2 10/16/2015 None Annual Medicare Wellness Exam Smoking and Tobacco Use non smoker 10/16/2015 None Annual Medicare Wellness Exam Social & Emotional Support always 10/16/2015 None Annual Medicare Wellness Exam Stress some of the time 10/16/2015 None Annual Medicare Wellness Exam Sun Exposure protects skin when outdoors: y 10/16/2015 None cough Location in the throat 07/10/2015 None cough Quality dry 03/2015 None cough Quality intermittent 07/10/2015 None cough Pertinent Findings Denies chest discomfort 07/10/2015 None cough Pertinent Findings Denies dyspnea 07/10/2015 None cough Pertinent Findings Denies fever 07/10/2015 None rash Pertinent Findings itching 07/10/2015 None cough Onset and Resolution resolved 07/10/2015 None rash Onset and Resolution ongoing 07/10/2015 she states that it is better finger pain Alleviating Factors finger flexion 07/10/2015 None finger pain Exacerbating Factors activity 07/10/2015 None finger pain Location in the left middle finger 07/10/2015 None finger pain Mechanism of injury unknown 07/10/2015 None cough Location in the throat 04/10/2015 None cough Quality dry 04/2015 None cough Quality intermittent 04/10/2015 None cough Onset and Resolution ongoing 04/10/2015 None cough Pertinent Findings Denies chest discomfort 04/10/2015 None cough Pertinent Findings Denies dyspnea 04/10/2015 None cough Pertinent Findings Denies fever 04/10/2015 None rash Location-Major on the arms 04/10/2015 left ac area rash Color red 2015 None rash Pertinent Findings itching 04/10/2015 None earache Location left ear 03/18/2015 None earache Onset and Resolution sudden in onset 03/18/2015 None earache Onset of Symptom 2 days ago 03/18/2015 None earache Frequency of Episodes daily 03/18/2015 None earache Triggers no known triggers 03/18/2015 None abdominal pain Location in the RUQ 03/06/2015 None abdominal pain Radiating the flank 03/06/2015 None abdominal pain Radiating the back 03/06/2015 None abdominal pain Quality intermittent 03/06/2015 None abdominal pain Quality chronic 03/06/2015 None abdominal pain Quality sharp 03/06/2015 None abdominal pain Onset of Symptom 2 weeks ago 03/06/2015 None abdominal pain Pertinent Findings Denies emesis 03/06/2015 None abdominal pain Pertinent Findings Denies fever 03/06/2015 None abdominal pain Pertinent Findings Denies heartburn 03/06/2015 None abdominal pain Pertinent Findings Denies melena 03/06/2015 None abdominal pain Pertinent Findings Denies nausea 03/06/2015 None mole check Location-Head/Neck on the forehead 12/12/2014 None mole check Pertinent Findings Denies itching 12/12/2014 None mole check Pertinent Findings Denies pain 12/12/2014 None mole check Quality not changing 12/12/2014 None mole check Quality chronic 12/12/2014 None mole check Color flesh-colored 12/12/2014 None mole check Severity asymptomatic 12/12/2014 None mole check Prior Treatments previously untreated 12/12/2014 None mole check Triggers no known triggers 12/12/2014 None psoriasis Length of Episodes 12 months 11/19/2014 None psoriasis Location on both legs 11/19/2014 None psoriasis Pertinent Findings Denies pain 11/19/2014 None diabetes mellitus Onset of Symptom onset as an adult 11/19/2014 None diabetes mellitus Quality non-insulin dependent 11/19/2014 None diabetes mellitus Glucose monitoring twice daily 11/19/2014 None diabetes mellitus Test results Pt checking blood glucose readings, did not bring results to clinic 11/19/2014 BG 135 last night diabetes mellitus Pertinent Findings Denies dizziness 11/19/2014 None diabetes mellitus Pertinent Findings nausea 11/19/2014 None diabetes mellitus Pertinent Findings Denies numbness 11/19/2014 None diabetes mellitus Pertinent Findings Denies tingling 11/19/2014 None psoriasis Alleviating Factors moisturizers 11/19/2014 None psoriasis Exacerbating Factors no known associated factors 11/19/2014 None flare up of rash Quality chronic 08/16/2014 None flare up of rash Onset of Symptom 1 year ago 08/16/2014 --Improved flare up of rash Frequency of Episodes unchanged 08/16/2014 None flare up of rash Severity moderate 08/16/2014 --Improved flare up of rash Prior Treatments responsive to treatment 08/16/2014 None flare up of rash Triggers no known triggers 08/16/2014 None flare up of rash Alleviating Factors treatment medication 08/16/2014 None flare up of rash Location-Major on the legs 08/05/2014 None flare up of rash Quality chronic 08/05/2014 None flare up of rash Color erythematous 08/05/2014 None flare up of rash Onset and Resolution ongoing 08/05/2014 None flare up of rash Onset of Symptom 1 year ago 08/05/2014 None flare up of rash Frequency of Episodes unchanged 08/05/2014 None flare up of rash Severity moderate 08/05/2014 None flare up of rash Prior Treatments previously treated 08/05/2014 None flare up of rash Triggers no known triggers 08/05/2014 None flare up of rash Alleviating Factors treatment medication 08/05/2014 None Advance Directives No Advance Directive data Encounters Encounter Performer Location Codes Date [id number]) [id number] EST. PATIENT, LEVEL IV Diagnosis: Essential (primary) hypertension[ICD10: I10] Diagnosis: Type 2 diabetes mellitus without complications[ICD10: E11.9] Kirstie Bosch MD, [facility] CPT-4: 72447 01/05/[phone]) [id number] EST. PATIENT, LEVEL IV Diagnosis: Type 2 diabetes mellitus without complications[ICD10: E11.9] Diagnosis: Essential (primary) hypertension[ICD10: I10] Diagnosis: Mixed hyperlipidemia[ICD10: E78.2] Diagnosis: Encounter for screening mammogram for malignant neoplasm of breast[ ICD10: Z12.31] Diagnosis: Encounter for immunization[ICD10: Z23] Kirstie Bosch MD, [facility] CPT-4: 37555 11/25/2016 [id number] EST. PATIENT, LEVEL III Diagnosis: Cough[ICD10: R05] Diagnosis: Gastro-esophageal reflux disease without esophagitis[ICD10: K21.9] Diamond Bosch MD, [facility] CPT-4: 36777 11/12/[phone]) 23762 EST. PATIENT, LEVEL IV Diagnosis: Type 2 diabetes mellitus without complications[ICD10: E11.9] Diagnosis: Essential (primary) hypertension[ICD10: I10] Diagnosis: Mixed hyperlipidemia[ICD10: E78.2] Kirstie Bosch MD, [facility] CPT-4: 18229 05/27/2016 19793 EST. PATIENT, LEVEL IV Diagnosis: Essential (primary) hypertension[ICD10: I10] Diagnosis: Type 2 diabetes mellitus without complications[ICD10: E11.9] Diamond Bosch MD , [facility] CPT-4: 00910 05/05/2016 ([id number]) [id number] EST. PATIENT, LEVEL IV Diagnosis: Type 2 diabetes mellitus without complications[ICD10: E11.9] Diagnosis: Essential (primary) hypertension[ICD10: I10] Diagnosis: Age-related osteoporosis without current pathological fracture[ICD10 : M81.0] Diagnosis: Encounter for screening mammogram for malignant neoplasm of breast[ ICD10: Z12.31] Diagnosis: VACCIN FOR INFLUENZA[ICD10: Z23] Kirstie Bosch MD, [facility] CPT-4: 05189 11/12/2015 ([id number]) 66809 EST. PATIENT, LEVEL IV Diagnosis: Essential (primary) hypertension[ICD10: I10] Diagnosis: Pain in left finger(s)[ICD10: M79.645] Diagnosis: Other seborrheic keratosis[ICD10: L82.1] Kirstie Bosch MD, [facility] CPT-4: 53222 07/10/2015 ([id number]) 87258 EST. PATIENT, LEVEL IV Diagnosis: Essential (primary) hypertension[ICD10: I10] Diagnosis: Type 2 diabetes mellitus without complications[ICD10: E11.9] Diagnosis: Cough[ICD10: R05] Kirstie Bosch MD, [facility] CPT-4: 92788 04/10/2015 81753 EST. PATIENT, LEVEL IV Diagnosis: Other acute nonsuppurative otitis media, left ear[ICD10: H65.192] Diagnosis: Acute recurrent maxillary sinusitis[ICD10: J01.01] Diagnosis: Other allergic rhinitis[ICD10: J30.89] Diamond Bosch MD, [facility] CPT-4: 60237 03/18/2015 ([id number]) [id number] EST. PATIENT, LEVEL IV Diagnosis: Essential (primary) hypertension[ICD10: I10] Diagnosis: Age-related osteoporosis without current pathological fracture[ICD10 : M81.0] Diagnosis: Type 2 diabetes mellitus without complications[ICD10: E11.9] Diagnosis: Dermatitis, unspecified[ICD10: L30.9] Diagnosis: Atopic dermatitis, unspecified[ICD10: L20.9] Kirstie Bosch MD, [facility] CPT-4: 20394 03/06/2015 ([id number]) 31847 EST. PATIENT, LEVEL III Diagnosis: Essential (primary) hypertension[ICD10: I10] Diagnosis: Other seborrheic keratosis[ICD10: L82.1] Yoly Bosch MD, [facility] CPT-4: 63853 12/12/2014 ([id number]) 25297 EST. PATIENT, LEVEL IV Diagnosis: Other specified diabetes mellitus without complications[ICD10: E13.9] Diagnosis: Essential (primary) hypertension[ICD10: I10] Diagnosis: Dermatitis, unspecified[ICD10: L30.9] Diagnosis: Encounter for immunization[ICD10: Z23] Kirstie Bosch MD, [facility] CPT-4: 94284 11/19/2014 ([id number]) 49161 EST. PATIENT, LEVEL III Diagnosis: Rash[ICD9: 782.1] Yoly Bosch MD, [facility] CPT-4: 19069 08/16/2014 ([id number]) OFFICE VISIT, NEW - LEVEL 3 Diagnosis: ESSENTIAL HYPERTENSION[ICD9: 401.9] Diagnosis: DIABETES TYPE II[ICD9: 250.00] Diagnosis: Rash[ICD9: 782.1] Yoly Bosch MD, [facility] CPT-4: 75937 08/05/2014 Plan of Care Planned Activity Notes Codes Status Date Appointment: Diamond Betancourt WPtel: [address] [place], [place] [id number] [place] (30 min) Complex 03/11/2017 Appointment: Kirstie Bosch WPtel: [address] [place], [place] [id number] [place] (15 min) Moderate 01/05/2017 Patient Education: Patient Medication Summary Completed 01/05/2017 Patient Education: Hypertension Completed 01/05/2017 Appointment: Kirstie Bosch WPtel: [address] [place], [place] [id number] [place] (15 min) Moderate 12/27/2016 [facility]ment[facility] [phone] [facility] [place] ([facility] min) Moderate 11/25/2016 Patient Education: Patient Medication Summary Completed 11/25/2016 Appointment: [facility] [phone] [facility] [place] ([facility] min) Complex 11/12/2016 Patient Education: Patient Medication Summary Completed 11/12/2016 Appointment: Kirstie Bosch WPtel: [phone] [facility] [place] (15 min) Moderate 05/27/2016 Patient Education: Patient Medication Summary Completed 05/27/2016 Appointment: Diamond Betancourt WPtel: [facility][note 3]5 [facility] [place] (30 min) Complex 05/05/2016 Patient Education: Patient Medication Summary Completed 05/05/2016 Patient Education: Hypertension Completed 05/05/2016 Appointment: Kirstie Bosch WPtel: [facility] 3[facility] [place] ([facility] min) Complex 04/15/2016 Appointment: Kirstie Bosch WPtel: [facility] 3[facility] [place] (15 min) Moderate 03/17/2016 Appointment: Kirstie Bosch WPtel: [facility] 3[facility] ([facility] min[facility] Moderate 11/13/2015 Patient Education: Patient Medication Summary Completed 11/12/2015 Appointment: Diamond Betancourt WPtel: [facility]note 3[facility] [place] [facility] - Annual Wellness Visit 10/16/2015 Patient Education: Patient Medication Summary Completed 10/16/2015 Appointment: Kirstie Bosch WPtel: [facility]note 3[facility] [place] (15 min) Moderate 07/10/2015 Patient Education: Patient Medication Summary Completed 07/10/2015 Appointment: Kirstie Bosch WPtel: [facility][note 3]5 [facility] [place] (15 min) Moderate 04/10/2015 Patient Education: Patient Medication Summary Completed 04/10/2015 Patient Education: Hypertension Completed 04/10/2015 Appointment: (15 min) Moderate 03/18/2015 Patient Education: Patient Medication Summary Completed 03/18/2015 Appointment: Kirst[facility] [phone] [facility] (15 min) Moderate 03/06/2015 Patient Education: Patient Medication Summary Completed 03/06/2015 Patient Education: Hypertension Completed 03/06/2015 Appointment: [facility] [phone] [facility] [place] (15 min) Moderate 02/19/2015 Appointment: [phone] [id number] [place] (15 min) Moderate 02/10/2015 Patient Education: Patient Medication Summary Completed 12/12/2014 Patient Education: Hypertension Completed 12/12/2014 Appointment: (15 min) Moderate 2014 Appointment: (15 min) Moderate 12/09/2014 Appointment: [facility] [phone] [id number] [place] (15 min) Moderate 11/19/2014 Patient Education: Patient Medication Summary Completed 11/19/2014 Patient Education: Hypertension Completed 11/19/2014 Appointment: (15 min) Moderate 08/16/2014 Patient Education: Patient Medication Summary Completed 08/16/2014 Appointment: (15 min) Moderate 08/12/2014 Appointment: (S) New Patient 08/05/2014 Patient Education: Patient Medication Summary Completed 08/05/2014 Patient Education: Hypertension Completed 08/05/2014 Instructions No Instructions
--- OUTSIDE RECORDS SUMMARY | 2017-08-23 20:53 | XMS REPORT | CCD ---
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 [id number] 2014 Unknown Family history Mother Diagnosis Age [...] Unknown Retired 08/05/[address]: 555477821 Never smoker 08/05/[address]: 707971352 Never drinks alcohol 08/05/2014 Allergies, Adverse Reactions, [...] Fill Instructions Lexapro 5 mg tablet RxNorm: 213294 1 Tablet(s) PO QHS 201704/12/2017 Active Lexapro 5 mg tablet RxNorm: 285032 1 Tablet(s) PO QHS 201703/13/2017 Inactive Tamiflu 75 mg capsule RxNorm: 910282 1 Capsule(s) PO BID 201702/09/2017 Inactive Tamiflu 75 mg capsule RxNorm: 191196 1 Capsule(s) PO BID 201702/14/2017 Inactive Zoloft 50 mg tablet RxNorm: 295793 TABLET(S) 1 TABLET(S) PO DAILY 01/24/2017 01/18/2018 Active Fosamax 70 mg tablet RxNorm: 587848 1 TABLET(S) PO WEEKLY 12/0306/02/2017 Active losartan 50 mg tablet RxNorm: 313868 1 Tablet(s) PO daily TAKE 1 TABLET BY MOUTH EVERY DAY 11/25/2016 05/18/2018 Active hydrochlorothiazide 25 mg tablet RxNorm: 377789 TABLET(S) 1 TABLET(S) PO DAILY 11/23/2016 04/21/2017 Active metformin 1,000 mg tablet RxNorm: 728847 1 TABLET(S) PO BID 08/19/2017 Active Nexium 24HR 22.3 mg capsule,delayed release RxNorm: 395877 1 Capsule(s) PO daily 11/17/2016 11/11/2017 Active Nexium 24HR 22.3 mg capsule,delayed release RxNorm: 442131 1 Capsule(s) PO daily 11/17/2016 11/16/2016 Inactive Nexium 24HR 22.3 mg capsule,delayed release RxNorm: 057975 1 Capsule(s) PO daily 11/12/2016 11/16/2016 Inactive Klor-Con 10 mEq tablet,extended release RxNorm: 035789 1 TABLET(S) PO BID 09/20/2016 06/16/2017 Active betamethasone valerate 0.1 % topical ointment RxNorm: 560287 1 Application TOP TID as needed 08/02/2016 10/30/2016 Inactive hydrochlorothiazide 25 mg tablet RxNorm: 260247 TABLET(S) 1 TABLET(S) PO DAILY 06/09/2016 11/05/2016 Inactive losartan 25 mg tablet RxNorm: 133371 TAKE 1 TABLET BY MOUTH EVERY DAY 05/21/2016 11/16/2016 Inactive losartan 25 mg tablet RxNorm: 964152 Tablet(s) 1 TABLET(S) PO DAILY 03/17/2016 09/12/2016 Inactive Fosamax 70 mg tablet RxNorm: 511893 1 Tablet(s) PO weekly 03/1709/14/2016 Inactive simvastatin 20 mg tablet RxNorm: 050631 1 TABLET(S) PO DAILY 12/03/2016 Inactive metformin 1,000 mg tablet RxNorm: 424432 1 TABLET(S) PO BID 10/17/2016 Inactive Zoloft 50 mg tablet RxNorm: 211309 Tablet(s) 1 TABLET(S) PO DAILY 12/17/2015 2016 Inactive hydrochlorothiazide 25 mg tablet RxNorm: 011816 Tablet(s) 1 TABLET(S) PO DAILY 12/03/2015 05/30/2016 Inactive losartan 25 mg tablet RxNorm: 078201 1 TABLET(S) PO DAILY 201503/16/2016 Inactive Klor-Con 10 mEq tablet,extended release RxNorm: 988717 1 TABLET(S) PO BID 11/05/2015 07/31/2016 Inactive hydrochlorothiazide 25 mg tablet RxNorm: 862066 1 TABLET(S) PO DAILY (PLEASE CALL OFFICE FOR APPOINTMENT 07/30/20152015 Inactive [SAVINGS FOR NON-COVERED DRUGS -- BIN:[id number], PCN: ASPROD1, Group: XXXXX, ID# XXXXXXX, Questions: . THIS IS NOT INSURANCE.] Cipro 500 mg tablet RxNorm: 437375 1 Tablet(s) PO BID 201506/08/2015 Inactive Cipro 500 mg tablet RxNorm: 325042 1 Tablet(s) PO BID 201506/15/2015 Inactive Zoloft 50 mg tablet RxNorm: 285693 1 TABLET(S) PO DAILY 201511/21/2015 Inactive losartan 25 mg tablet RxNorm: 435097 1 Tablet(s) PO daily 201511/05/2015 Inactive Zoloft 50 mg tablet RxNorm: 105159 TAKE 1 TABLET BY MOUTH DAILY 03/31/2015 09/26/2015 Inactive Zoloft 50 mg tablet RxNorm: 123848 1 Tablet(s) PO daily 201503/30/2015 Inactive enalapril maleate 5 mg tablet RxNorm: 585835 TAKE 1 TABLET BY MOUTH DAILY 03/31/2015 04/09/2015 Inactive amoxicillin 500 mg tablet RxNorm: 782815 1 Tablet(s) PO BID 10/201503/24/2015 Inactive ciprofloxacin 0.3 % eye drops RxNorm: 302713 1-2 Drop(s) OTIC TID 03/18/2015 03/27/2015 Inactive betamethasone valerate 0.1 % topical ointment RxNorm: 960741 1 Application TOP TID 03/06/2015 10/01/2015 Inactive hydrochlorothiazide 25 mg tablet RxNorm: 852896 1 TABLET(S) PO DAILY (PLEASE CALL OFFICE FOR APPOINTMENT 01/21/20152015 Inactive [SAVINGS FOR NON-COVERED DRUGS -- BIN:[id number], PCN: ASPROD1, Group: XXXXX, ID# XXXXXXX, Questions: [phone]. THIS IS NOT INSURANCE.] simvastatin 20 mg tablet RxNorm: 505091 1 Tablet(s) PO daily 12/26/2015 Inactive metformin 1,000 mg tablet RxNorm: 403629 TAKE 1 TWICE DAILY 06/24/2015 Inactive metformin 1,000 mg tablet RxNorm: 741333 1 Tablet(s) PO BID 12/26/2014 Inactive metformin 500 mg tablet RxNorm: 233404 1 Tablet(s) PO BID 12/2712/26/2014 Inactive Fosamax 70 mg tablet RxNorm: 805756 1 Tablet(s) PO QW weekly 12/14/2015 Inactive betamethasone valerate 0.1 % topical ointment RxNorm: 373115 1 Application TOP TID 11/19/2014 12/02/2014 Inactive hydrochlorothiazide 25 mg tablet RxNorm: 433249 1 TABLET(S) PO DAILY (PLEASE CALL OFFICE FOR APPOINTMENT 10/31/20142014 Inactive [SAVINGS FOR NON-COVERED DRUGS -- BIN:[id number], PCN: ASPROD1, Group: XXXXX, ID# XXXXXXX, Questions: [phone]. THIS IS NOT INSURANCE.] Klor-Con 10 mEq tablet,extended release RxNorm: 283890 1 Tablet(s) PO BID 10/25/2014 10/19/2015 Inactive Klor-Con 10 mEq tablet,extended release RxNorm: 584420 1 Tablet(s) PO BID 10/25/2014 10/24/2014 Inactive Klor-Con 10 mEq tablet,extended release RxNorm: 008942 1 Tablet(s) PO BID 10/25/2014 10/24/2014 Inactive enalapril maleate 5 mg tablet RxNorm: 299281 TAKE 1 TABLET BY MOUTH DAILY 10/01/2014 03/29/2015 Inactive triamcinolone acetonide 0.1 % topical cream RxNorm: 3589114 1 Application TOP BID 08/05/2014 08/18/2014 Inactive clotrimazole 1 % topical cream RxNorm: 948506 1 Application TOP BID 08/05/2014 08/18/2014 Inactive apply to rash twice daily hydrochlorothiazide 25 mg tablet RxNorm: 596004 1 TABLET(S) PO DAILY (PLEASE CALL OFFICE FOR APPOINTMENT 08/01/20142014 Inactive [SAVINGS FOR NON-COVERED DRUGS -- BIN:[id number], PCN: ASPROD1, Group: XXXXX, ID# XXXXXXX, Questions: [phone]. THIS IS NOT INSURANCE.] hydrochlorothiazide 25 mg tablet RxNorm: 518268 1 Tablet(s) PO daily (please call office for appointment 06/19/20142014 Inactive [SAVINGS FOR NON-COVERED DRUGS -- BIN:[id number], PCN: ASPROD1, Group: XXXXX, ID# XXXXXXX, Questions: [phone]. THIS IS NOT INSURANCE.] hydrochlorothiazide 25 mg tablet RxNorm: 728230 1 Tablet(s) PO daily (please call office for appointment 06/19/20142014 Inactive vitamin E 1,000 unit tablet RxNorm: 529326 1 Tablet(s) PO daily No Start Date Active One Touch Test strips RxNorm: Miscellaneous No Start Date Active acyclovir 400 mg tablet RxNorm: 046811 1 Tablet(s) PO daily No Start Date Active Vitamin B-12 1,000 mcg tablet RxNorm: 242280 1 Tablet(s) PO daily No Start Date Active Vitamin D3 5,000 unit tablet RxNorm: 678059 1 Tablet(s) PO daily No Start Date Active Vitamin C 500 mg chewable tablet RxNorm: 307599 1 Tablet(s) PO daily No Start Date Active enalapril maleate 5 mg tablet RxNorm: 416804 1 Tablet(s) PO daily No Start Date 09/30/2014 Inactive Vitamin D2 50,000 unit capsule RxNorm: 188750 1 Capsule(s) PO weekly No Start Date 05/26/2016 Inactive Zoloft 50 mg tablet RxNorm: 971046 1 Tablet(s) PO daily No Start Date 03/30/2015 Inactive KCL 10 meq RxNorm: 1 Tablet(s) PO BID No Start Date 10/25/2014 Inactive sertraline 50 mg tablet RxNorm: 591335 oral No Start Date 05/27/2016 Inactive Fosamax 70 mg tablet RxNorm: 616987 1 Tablet(s) PO weekly No Start Date 03/16/2016 Inactive metformin 500 mg tablet RxNorm: 426299 1 Tablet(s) PO BID No Start Date [...] Code Item Item Code Result Date %Hba1C Vfd106 % HbA1c 55140-0 5.9 % 12/01/2016 %Hba1C Irx690 Gluc Ave 123 mg/dL 12/01/2016 Comp Metabolic Rux077 NA 139 mEq/L 12/01/2016 Comp Metabolic Hbw161 K 3.9 mEq/L 12/01/2016 Comp Metabolic Ynt624 CL 102 mEq/L 12/01/2016 Comp Metabolic Dhb899 CO2 27.0 mEq/L 12/01/2016 Comp Metabolic Mvp130 ANION GAP 14 12/01/2016 Comp Metabolic Xma794 GLUCOSE 118 mg/dL 12/01/2016 Comp Metabolic Gmv822 Creat 1.3 mg/dL 12/01/2016 Comp Metabolic Itk762 eGFR 43 ml/min/1.73m2 12/01/2016 Comp Metabolic Cwf974 BUN 26 mg/dL 12/01/2016 Comp Metabolic Wud905 B/C Ratio 20.0 Ratio 12/01/2016 Comp Metabolic Ser324 CALCIUM 9.0 mg/dL 12/01/2016 Comp Metabolic Qhs759 ALK PHOS 84 U/L 12/01/2016 Comp Metabolic Vzz991 AST(SGOT) 9 U/L 12/01/2016 Comp Metabolic Krl435 ALT(SGPT) 7 U/L 12/01/2016 Comp Metabolic Vgs950 BILI T 0.5 mg/dL 12/01/2016 Comp Metabolic Cfn405 ALBUMIN 3.8 g/dL 12/01/2016 Comp Metabolic Prg607 TPRO 6.2 g/dL 12/01/2016 Comp Metabolic Cah642 GLOB 2.4 g/dL 12/01/2016 Comp Metabolic Vnd171 A/G Ratio 1.6 Ratio 12/01/2016 Comp Metabolic Ahx824 Osmo 283 mOsmo 12/01/2016 Cbc With Differential [...] 20.7 % 12/01/2016 Cbc With Differential Ord2 [place]% 9.4 % 12/01/2016 Cbc With Differential Ord2 MCH 29.9 pg 12/01/2016 Cbc With Differential Ord2 MCHC 33.3 pg 12/01/2016 Cbc With Differential Ord2 Eos% 2.7 % 12/01/2016 Cbc With Differential Ord2 PLT 260 K/ul 12/01/2016 Cbc With Differential Ord2 Baso% 0.4 % 12/01/2016 Cbc With Differential Ord2 RDW 13.3 % 12/01/2016 Cbc With Differential Ord2 Neut ABS# 5.69 K/ul 12/01/2016 Cbc With Differential Ord2 Lymph ABS# 1.76 K/ul 12/01/2016 Cbc With Differential Ord2 [place] ABS# 0.8 K/ul 12/01/2016 Cbc With Differential [...] Ord6 hTSH II 1.99 uIU/mL 06/14/2016 %Hba1C Lsj322 % HbA1c 54205-6 5.9 % 06/14/2016 %Hba1C Qel686 Gluc Ave 123 mg/dL 06/14/2016 Microalbumin Qic073 MicroAlb <0.7 mg/dL 06/14/2016 Comp Metabolic Iup657 NA 139 mEq/L 06/14/2016 Comp Metabolic Mjh446 K 4.0 mEq/L 06/14/2016 Comp Metabolic Mzo970 CL 100 mEq/L 06/14/2016 Comp Metabolic Iie875 CO2 26.0 mEq/L 06/14/2016 Comp Metabolic Gld776 ANION GAP 17 06/14/2016 Comp Metabolic Ghw654 GLUCOSE 122 mg/dL 06/14/2016 Comp Metabolic Tcu038 Creat 1.2 mg/dL 06/14/2016 Comp Metabolic Ldk011 eGFR 46 ml/min/1.73m2 06/14/2016 Comp Metabolic Gey952 BUN 27 mg/dL 06/14/2016 Comp Metabolic Tik285 B/C Ratio 22.3 Ratio 06/14/2016 Comp Metabolic Way001 CALCIUM 9.2 mg/dL 06/14/2016 Comp Metabolic Phs589 ALK PHOS 89 U/L 06/14/2016 Comp Metabolic Amk142 AST(SGOT) 9 U/L 06/14/2016 Comp Metabolic Qdg365 ALT(SGPT) 9 U/L 06/14/2016 Comp Metabolic Yvd093 BILI T 0.5 mg/dL 06/14/2016 Comp Metabolic Nmd580 ALBUMIN 3.9 g/dL 06/14/2016 Comp Metabolic Iee110 TPRO 6.5 g/dL 06/14/2016 Comp Metabolic Jes416 GLOB 2.6 g/dL 06/14/2016 Comp Metabolic Aet047 A/G Ratio 1.5 Ratio 06/14/2016 Comp Metabolic Viz271 Osmo 284 mOsmo 06/14/2016 Cbc With Differential Ord2 WBC 9.48 K/ul 06/14/2016 Cbc With Differential Ord2 RBC 4.29 M/ul 06/14/2016 Cbc With Differential Ord2 HGB 13.0 g/dl 06/14/2016 Cbc With Differential Ord2 HCT 38.8 % 06/14/2016 Cbc With Differential Ord2 Neut% 67.0 % 06/14/2016 Cbc With Differential Ord2 Lymph% 20.9 % 06/14/2016 Cbc With Differential Ord2 MCV 90.4 fl 06/14/2016 Cbc With Differential Ord2 MCH 30.3 pg 06/14/2016 Cbc With Differential Ord2 [place]% 10.3 % 06/14/2016 Cbc With Differential Ord2 MCHC 33.5 pg 06/14/2016 Cbc With Differential Ord2 Eos% 1.4 % 06/14/2016 Cbc With Differential Ord2 Baso% 0.4 % 06/14/2016 Cbc With Differential Ord2 PLT 273 K/ul 06/14/2016 Cbc With Differential Ord2 RDW 13.1 % 06/14/2016 Cbc With Differential Ord2 Neut ABS# 6.35 K/ul 06/14/2016 Cbc With Differential Ord2 Lymph ABS# 1.98 K/ul 06/14/2016 Cbc With Differential Ord2 [place] ABS# 1.0 K/ul 06/14/2016 Cbc With Differential Ord2 Eos ABS# 0.1 K/ul 06/14/2016 Cbc With Differential Ord2 Baso ABS# 0.0 K/ul 06/14/2016 Comp Metabolic Wol070 NA 140 mEq/L 11/13/2015 Comp Metabolic Pct879 K 4.3 mEq/L 11/13/2015 Comp Metabolic Hrr724 CL 101 mEq/L 11/13/2015 Comp Metabolic Gbe376 CO2 31.0 mEq/L 11/13/2015 Comp Metabolic Psj372 ANION GAP 12 11/13/2015 Comp Metabolic Iwv633 GLUCOSE 108 mg/dL 11/13/2015 Comp Metabolic Ubk362 Creat 1.1 mg/dL 11/13/2015 Comp Metabolic Zjg643 eGFR 54 ml/min/1.73m2 11/13/2015 Comp Metabolic Jek979 BUN 23 mg/dL 11/13/2015 Comp Metabolic Xkx883 B/C Ratio 21.5 Ratio 11/13/2015 Comp Metabolic Cww227 CALCIUM 9.8 mg/dL 11/13/2015 Comp Metabolic Hjv963 ALK PHOS 69 U/L 11/13/2015 Comp Metabolic Wif975 AST(SGOT) 11 U/L 11/13/2015 Comp Metabolic Ycz807 ALT(SGPT) 8 U/L 11/13/2015 Comp Metabolic Dji272 BILI T 0.5 mg/dL 11/13/2015 Comp Metabolic Jam805 ALBUMIN 4.0 g/dL 11/13/2015 Comp Metabolic Jlt551 TPRO 6.4 g/dL 11/13/2015 Comp Metabolic Vjt464 GLOB 2.4 g/dL 11/13/2015 Comp Metabolic Urv541 A/G Ratio 1.7 Ratio 11/13/2015 Comp Metabolic Qxr062 Osmo 284 mOsmo 11/13/2015 Vitamin D 25 Oh Nxz1920 VITAMIN D, 25 HYDROXY 51.34 ng/mL Tsh Ord6 hTSH II 1.57 uIU/mL 11/12/2015 Cbc With Differential Ord2 WBC 7.53 K/ul 11/12/2015 Cbc With Differential Ord2 RBC 3.99 M/ul 11/12/2015 Cbc With Differential Ord2 HGB 12.2 g/dl 11/12/2015 Cbc With Differential Ord2 Neut% 59.6 % 11/12/2015 Cbc With Differential Ord2 HCT 35.6 % 11/12/2015 Cbc With Differential Ord2 MCV 89.2 fl 11/12/2015 Cbc With Differential Ord2 Lymph% 27.9 % 11/12/2015 Cbc With Differential Ord2 MCH 30.6 pg 11/12/2015 Cbc With Differential Ord2 [place]% 10.1 % 11/12/2015 Cbc With Differential Ord2 Eos% 1.9 % 11/12/2015 Cbc With Differential Ord2 MCHC 34.3 pg 11/12/2015 Cbc With Differential Ord2 PLT 256 K/ul 11/12/2015 Cbc With Differential Ord2 Baso% 0.5 % 11/12/2015 Cbc With Differential Ord2 RDW 13.0 % 11/12/2015 Cbc With Differential Ord2 Neut ABS# 4.49 K/ul 11/12/2015 Cbc With Differential Ord2 Lymph ABS# 2.10 K/ul 11/12/2015 Cbc With Differential Ord2 [place] ABS# 0.8 K/ul 11/12/2015 Cbc With Differential Ord2 Eos ABS# 0.1 K/ul 11/12/2015 Cbc With Differential Ord2 Baso ABS# 0.0 K/ul 11/12/2015 %Hba1C Gav279 % HbA1c 95667-6 5.8 % 11/12/2015 %Hba1C Hui704 Gluc Ave 120 mg/dL 11/12/2015 Vitamin D 25 Oh Kue9351 VITAMIN D, 25 HYDROXY 25.02 ng/mL Lipid Ord30 CHOL 162 mg/dL 03/06/2015 Lipid Ord30 HDL 54.0 mg/dl 03/06/2015 Lipid Ord30 TRIG 114 mg/dL 03/06/2015 Lipid Ord30 LDL 85 mg/dL 03/06/2015 Lipid Ord30 C/HDL 3.0 Ratio 03/06/2015 %Hba1C Bcw158 % HbA1c 93525-4 5.8 % 03/06/2015 %Hba1C Ien787 Gluc Ave 120 mg/dL 03/06/2015 Comp Metabolic Wrc828 NA 137 mEq/L 03/06/2015 Comp Metabolic Zlh613 K 4.5 mEq/L 03/06/2015 Comp Metabolic Nrp330 CL 100 mEq/L 03/06/2015 Comp Metabolic Pgn782 CO2 28.0 mEq/L 03/06/2015 Comp Metabolic Apk564 ANION GAP 14 03/06/2015 Comp Metabolic Jtv016 GLUCOSE 87 mg/dL 03/06/2015 Comp Metabolic Ppv013 Creat 1.1 mg/dL 03/06/2015 Comp Metabolic Mua796 eGFR 52 ml/min/1.73m2 03/06/2015 Comp Metabolic Xkt651 BUN 31 mg/dL 03/06/2015 Comp Metabolic Qlg075 B/C Ratio 28.2 Ratio 03/06/2015 Comp Metabolic Qkl640 CALCIUM 9.2 mg/dL 03/06/2015 Comp Metabolic Yrs448 ALK PHOS 72 U/L 03/06/2015 Comp Metabolic Avf258 AST(SGOT) 9 U/L 03/06/2015 Comp Metabolic Ryx583 ALT(SGPT) 7 U/L 03/06/2015 Comp Metabolic Fbf568 BILI T 0.5 mg/dL 03/06/2015 Comp Metabolic Hni708 ALBUMIN 4.1 g/dL 03/06/2015 Comp Metabolic Jes077 TPRO 6.3 g/dL 03/06/2015 Comp Metabolic Eyk138 GLOB 2.2 g/dL 03/06/2015 Comp Metabolic Cjg105 A/G Ratio 1.9 Ratio 03/06/2015 Comp Metabolic Hmw406 Osmo 280 mOsmo 03/06/2015 %Hba1C Zyp021 % HbA1c 05671-9 5.8 % 11/20/2014 %Hba1C Sci734 Gluc Ave 120 mg/dL 11/20/2014 Tsh Ord6 [...] Ord30 C/HDL 3.1 Ratio 11/19/2014 Comp Metabolic Ski607 NA 137 mEq/L 11/19/2014 Comp Metabolic Adw347 K 4.2 mEq/L 11/19/2014 Comp Metabolic Cyu682 CL 99 mEq/L 11/19/2014 Comp Metabolic Squ801 CO2 30.0 mEq/L 11/19/2014 Comp Metabolic Nga390 ANION GAP 12 11/19/2014 Comp Metabolic Fkt124 GLUCOSE 92 mg/dL 11/19/2014 Comp Metabolic Cmc526 Creat 0.9 mg/dL 11/19/2014 Comp Metabolic Dyi891 eGFR 68 ml/min/1.73m2 11/19/2014 Comp Metabolic Oxt043 BUN 23 mg/dL 11/19/2014 Comp Metabolic Lol800 B/C Ratio 26.4 Ratio 11/19/2014 Comp Metabolic Neb163 CALCIUM 9.7 mg/dL 11/19/2014 Comp Metabolic Syi432 ALK PHOS 84 U/L 11/19/2014 Comp Metabolic Jfj877 AST(SGOT) 9 U/L 11/19/2014 Comp Metabolic Idz438 ALT(SGPT) 9 U/L 11/19/2014 Comp Metabolic Wmq711 BILI T 0.5 mg/dL 11/19/2014 Comp Metabolic Bmk884 ALBUMIN 4.3 g/dL 11/19/2014 Comp Metabolic Hlu853 TPRO 6.7 g/dL 11/19/2014 Comp Metabolic Xjy883 GLOB 2.4 g/dL 11/19/2014 Comp Metabolic Htf413 A/G Ratio 1.8 Ratio 11/19/2014 Comp Metabolic Tqg961 Osmo 277 mOsmo 11/19/2014 Review of Systems [...] accomodation 11/12/2016 None Full Exam - General 1995 Ears/Nose/Throat oral cavity/pharynx/larynx Overall: oral mucosa clear [...] skin Location: face 05/27/2016 john k left [facility]ist at hair line Full Exam - General [...] skin Location: face 11/12/2015 john k left [facility]ist at hair line Full Exam - General [...] skin Location: face 07/10/2015 john k left adventist at hair line Full Exam - General [...] skin Location: face 04/10/2015 john k left adventist at hair line Full Exam - General [...] skin Location: face 03/06/2015 john k left adventist at hair line Full Exam - General [...] skin Location: face 12/12/2014 john k left adventist at hair line Full Exam - General [...] Procedure Codes Date IMMUNIZATION ADMIN CPT -4: 27838 11/25/2016 FLU VAC NO PRSV 4 JEAN-CLAUDE 3 YRS+ CPT-4: 71017 11/25/2016 ADMIN INFLUENZA VIRUS VAC CPT-4: G0008 11/12/2015 FLU VACC 4 JEAN-CLAUDE 3 YRS PLUS IM SNOMED CT: 24438282 CPT-4: 93619 11/12/2015 PPPS, SUBSEQ VISIT CPT -4: G0439 10/16/2015 ADMIN INFLUENZA VIRUS VAC Formatting Model/CDA Sections, Assigned to CPT-4: J1090Mroqyaf 11/19/2014 FLU VAC NO PRSV 4 JEAN-CLAUDE 3 YRS+ CPT-4: 08664 11/19/2014 Vital Signs Date Vital 01/05/2017 Blood Pressure 1: 146/76 Code : 8480-6 Blood Pressure 1: 138/74 Code: 8480-6 BMI: 24.0 Code: 25313-3 Heart Rate 1: 64 bpm Heart Rate 1: 64 bpm Height: 5'4" Respiratory Rate: 20 bpm SpO2: 98% Weight: 140 lbs 11/25/2016 Blood Pressure 1: 142/78 Code : 8480-6 BMI: 24.3 Code : 99707-9 Heart Rate 1 : 62 bpm Height: 5'4" SpO2: 95% Weight: 141 lbs 8 oz 11/12/2016 Blood Pressure 1: 132/68 Code : 8480-6 BMI: 24.9 Code : 57981-3 Heart Rate 1 : 64 bpm Height: 5'4" SpO2: 96% Weight: 145 lbs 05/27/2016 Blood Pressure 1: 132/76 Code : 8480-6 BMI: 25.1 Code : 17656-6 Heart Rate 1 : 67 bpm Height: 5'4" SpO2: 98% Weight: 146 lbs 05/05/2016 Blood Pressure 1: 120/62 Code : 8480-6 BMI: 24.9 Code : 57984-1 Heart Rate 1 : 60 bpm Height: 5'4" SpO2: 95% Weight: 145 lbs 11/12/2015 Blood Pressure 1: 136/78 Code : 8480-6 BMI: 24.2 Code : 77096-3 Heart Rate 1 : 65 bpm Height: 5'4" SpO2: 98% Weight: 141 lbs 10/16/2015 Blood Pressure 1: 118/64 Code : 8480-6 BMI: 24.0 Code : 58967-6 Heart Rate 1 : 63 bpm Height: 5'4" SpO2: 94% Weight: 140 lbs 07/10/2015 Blood Pressure 1: 120/68 Code : 8480-6 BMI: 23.3 Code : 17240-4 Heart Rate 1 : 59 bpm Height: 5'4" SpO2: 97% Weight: 136 lbs 04/10/2015 Blood Pressure 1: 120/60 Code : 8480-6 BMI: 23.3 Code : 50662-0 Heart Rate 1 : 62 bpm Height: 5'4" SpO2: 93% Weight: 136 lbs 03/18/2015 Blood Pressure 1: 120/58 Code : 8480-6 BMI: 23.3 Code : 25189-6 Heart Rate 1 : 81 bpm Height: 5'4" SpO2: 98% Weight: 136 lbs 03/06/2015 Blood Pressure 1: 128/74 Code : 8480-6 BMI: 23.2 Code : 54351-2 Heart Rate 1 : 68 bpm Height: 5'4" SpO2: 94% Weight: 135 lbs 12/12/2014 Blood Pressure 1: 120/68 Code : 8480-6 BMI: 23.2 Code : 38413-8 Heart Rate 1 : 58 bpm Height: 5'4" SpO2: 96% Weight: 135 lbs 11/19/2014 Blood Pressure 1: 136/72 Code : 8480-6 BMI: 23.5 Code : 15752-4 Heart Rate 1 : 70 bpm Height: 5'4" SpO2: 96% Weight: 137 lbs 08/16/2014 Blood Pressure 1: 130/60 Code : 8480-6 BMI: 24.7 Code : 82477-6 Heart Rate 1 : 63 bpm Height: 5'4" SpO2: 96% Weight: 144 lbs 08/05/2014 Blood Pressure 1: 136/74 Code : 8480-6 BMI: 24.4 Code : 37073-7 Heart Rate 1 : 60 bpm Height: [...] data Encounters Encounter Performer Location Codes Date ([id number]) [id number] EST. PATIENT, LEVEL IV Diagnosis: Essential (primary) hypertension[ICD10: I10] Diagnosis: Type 2 diabetes mellitus without complications[ICD10: E11.9] Kirstie Bosch MD, [facility] CPT-4: 33465 01/05/2017 ([id number]) 84469 EST. PATIENT, LEVEL IV Diagnosis: Type 2 diabetes mellitus without complications[ICD10: E11.9] Diagnosis: Essential (primary) hypertension[ICD10: I10] Diagnosis: Mixed hyperlipidemia[ICD10: E78.2] Diagnosis: Encounter for screening mammogram for malignant neoplasm of breast[ ICD10: Z12.31] Diagnosis: Encounter for immunization[ICD10: Z23] Kirstie Bosch MD, [facility] CPT-4: 92138 11/25/2016 [id number] EST. PATIENT, LEVEL III Diagnosis: Cough[ICD10: R05] Diagnosis: Gastro-esophageal reflux disease without esophagitis[ICD10: K21.9] [facility] CPT-4: 39327 11/12/2016 [id number]) [id number] EST. PATIENT, LEVEL IV Diagnosis: Type 2 diabetes mellitus without complications[ICD10: E11.9] Diagnosis: Essential (primary) hypertension[ICD10: I10] Diagnosis: Mixed hyperlipidemia[ICD10: E78.2] [facility] CPT-4: 32181 05/27/2016 [id number] EST. PATIENT, LEVEL IV Diagnosis: Essential (primary) hypertension[ICD10: I10] Diagnosis: Type 2 diabetes mellitus without complications[ICD10: E11.9] [facility] CPT-4: 00807 05/05/2016 ([id number]) 64055 EST. PATIENT, LEVEL IV Diagnosis: Type 2 diabetes mellitus without complications[ICD10: E11.9] Diagnosis: Essential (primary) hypertension[ICD10: I10] Diagnosis: Age-related osteoporosis without current pathological fracture[ICD10 : M81.0] Diagnosis: Encounter for screening mammogram for malignant neoplasm of breast[ ICD10: Z12.31] Diagnosis: VACCIN FOR INFLUENZA[ICD10: Z23] Kirstie Bosch MD, [facility] CPT-4: 18025 11/12/2015 ([id number]) 45047 EST. PATIENT, LEVEL IV Diagnosis: Essential (primary) hypertension[ICD10: I10] Diagnosis: Pain in left finger(s)[ICD10: M79.645] Diagnosis: Other seborrheic keratosis[ICD10: L82.1] Kirstie Bosch MD, [facility] CPT-4: 69826 07/10/2015 ([id number]) 90347 EST. PATIENT, LEVEL IV Diagnosis: Essential (primary) hypertension[ICD10: I10] Diagnosis: Type 2 diabetes mellitus without complications[ICD10: E11.9] Diagnosis: Cough[ICD10: R05] Kirstie Bosch MD, [facility] CPT-4: 62682 04/10/2015 [id number] EST. PATIENT, LEVEL IV Diagnosis: Other acute nonsuppurative otitis media, left ear[ICD10: H65.192] Diagnosis: Acute recurrent maxillary sinusitis[ICD10: J01.01] Diagnosis: Other allergic rhinitis[ICD10: J30.89] Diamond Bosch MD, [facility] CPT-4: 83043 03/18/2015 ([id number]) 73097 EST. PATIENT, LEVEL IV Diagnosis: Essential (primary) hypertension[ICD10: I10] Diagnosis: Age-related osteoporosis without current pathological fracture[ICD10 : M81.0] Diagnosis: Type 2 diabetes mellitus without complications[ICD10: E11.9] Diagnosis: Dermatitis, unspecified[ICD10: L30.9] Diagnosis: Atopic dermatitis, unspecified[ICD10: L20.9] Kirstie Bosch MD, [facility] CPT-4: 44601 03/06/2015 ([id number]) 77682 EST. PATIENT, LEVEL III Diagnosis: Essential (primary) hypertension[ICD10: I10] Diagnosis: Other seborrheic keratosis[ICD10: L82.1] Yoly Bosch MD, [facility] CPT-4: 86965 12/12/2014 ([id number]) 24177 EST. PATIENT, LEVEL IV Diagnosis: Other specified diabetes mellitus without complications[ICD10: E13.9] Diagnosis: Essential (primary) hypertension[ICD10: I10] Diagnosis: Dermatitis, unspecified[ICD10: L30.9] Diagnosis: Encounter for immunization[ICD10: Z23] [facility] CPT-4: 05644 11/19/2014 ([id number]) [id number] EST. PATIENT, LEVEL III Diagnosis: Rash[ICD9: 782.1] Yoly Bosch MD, [facility] CPT-4: 74021 08/16/2014 ([id number]) OFFICE VISIT, NEW - LEVEL 3 Diagnosis: ESSENTIAL HYPERTENSION[ICD9: 401.9] Diagnosis: DIABETES TYPE II[ICD9: 250.00] Diagnosis: Rash[ICD9: 782.1] Yoly Bosch MD, [facility] CPT-4: 86597 08/05/2014 Plan of Care Planned Activity Notes Codes Status Date Appointment: Diamond Betancourt WPtel: [address] [place], [place] [id number] (30 min) Complex 03/11/2017 Visit Plan: Hypertension - well controlled - continue with current medications, continue with no added salt diet. Pt has been encouraged to exercise daily. The pt has been advised to call the office if there are any acute concerns about change in blood pressure readings at home. Diabetes Mellitus - controlled - per recent FSBS reports. I have recommended for the patient to have follow up labs prior to the next office visit. The patient has been instructed to continue with current medications as previously directed, continue with regular FSBS monitoring to assure continued control of diabetes. Pt to call for any acute concerns, complaints, or if the blood glucose readings are starting to become less controlled. Stress over 's illness and trying to find a place for him to continue to receive iv antibiotic therapy. 01/05/2017 Appointment: Kirstie Bosch WPtel: [address] [place], [place] [id number] (15 min) Moderate 01/05/2017 Patient Education: Patient Medication Summary Completed 01/05/2017 Patient Education: Hypertension Completed 01/05/2017 Appointment: Kirstie Bosch WPtel: [phone] [facility] (15 min) Moderate 12/27/2016 Visit Plan: Hypertension - well controlled - continue with current medications, continue with no added salt diet. Pt has been encouraged to exercise daily. The pt has been advised to call the office if there are any acute concerns about change in blood pressure readings at home. Diabetes Mellitus - controlled - per recent FSBS reports. I have recommended for the patient to have follow up labs prior to the next office visit. The patient has been instructed to continue with current medications as previously directed, continue with regular FSBS monitoring to assure continued control of diabetes. Pt to call for any acute concerns, complaints, or if the blood glucose readings are starting to become less controlled. Hyperlipidemia - pt has been counseled about appropriate diet, exercise, and need for low fat food choices. I have discussed the need for the patient to take medications as prescribed. If the patient has negative side effects from the medication, they are to CALL the office and not abruptly discontinue the medication without discussion with a practitioner in the office. We will check labs in 3-6 months for follow up on the patient's chronic medical problem and to assure normal liver response to medications. flu shot today 11/25/2016 Appointment: Kirstie Bosch WPtel: [phone] (15 min) Moderate 11/25/2016 Patient Education: Patient Medication Summary Completed 11/25/2016 Visit Plan: Ongoing cough and reflux symptoms - will treat reflux - If no improvement will order chest x-ray on Tuesday Esophageal Reflux - the patient has been counseled against excessive intake of caffeine, spicy foods , peppermint, and cinnamon - all of which can exacerbate esophageal reflux. The patient is to take medications as prescribed and call the office if the symptoms are not improving. 11/12/2016 Visit Plan: Ongoing cough and reflux symptoms - will treat reflux - If no improvement will order chest x-ray on Tuesday Esophageal Reflux - the patient has been counseled against excessive intake of caffeine, spicy foods , peppermint, and cinnamon - all of which can exacerbate esophageal reflux. The patient is to take medications as prescribed and call the office if the symptoms are not improving. 11/12/2016 Appointment: Diamond Betancourt WPtel: [phone] [place] (30 min) Complex 11/12/2016 Patient Education: Patient Medication Summary Completed 11/12/2016 Visit Plan: Hypertension - well controlled - continue with current medications, continue with no added salt diet. Pt has been encouraged to exercise daily. The pt has been advised to call the office if there are any acute concerns about change in blood pressure readings at home. Diabetes Mellitus - controlled - per recent FSBS reports. I have recommended for the patient to have follow up labs prior to the next office visit. The patient has been instructed to continue with current medications as previously directed, continue with regular FSBS monitoring to assure continued control of diabetes. Pt to call for any acute concerns, complaints, or if the blood glucose readings are starting to become less controlled. Hyperlipidemia - pt has been counseled about appropriate diet, exercise, and need for low fat food choices. I have discussed the need for the patient to take medications as prescribed. If the patient has negative side effects from the medication, they are to CALL the office and not abruptly discontinue the medication without discussion with a practitioner in the office. We will check labs in 3-6 months for follow up on the patient's chronic medical problem and to assure normal liver response to medications. 05/27/2016 Appointment: Kirstie Bosch WPtel: [phone] [place] (15 min) Moderate 05/27/2016 Patient Education: Patient Medication Summary Completed 05/27/2016 Visit Plan: Well Adult - pt was counseled about diet, exercise, and encouraged to follow a heart healthy diet and increase activity level. The patient was instructed to RTC yearly for well adult exams and PRN for acute illnesses. The pt was also instructed to have yearly labs for check of cholesterol, thyroid, chem panel, CBC, and renal functioning. 05/05/2016 Visit Plan: Well Adult - pt was counseled about diet, exercise, and encouraged to follow a heart healthy diet and increase activity level. The patient was instructed to RTC yearly for well adult exams and PRN for acute illnesses. The pt was also instructed to have yearly labs for check of cholesterol, thyroid, chem panel, CBC, and renal functioning. 05/05/2016 Appointment: Diamond Betancourt WPtel: 1015 [facility] [place] (30 min) Complex 05/05/2016 Patient Education: Patient Medication Summary Completed 05/05/2016 Patient Education: Hypertension Completed 05/05/2016 Appointment: Kirstie Bosch WPtel: [phone] [facility] [place] (30 min) Complex 04/15/2016 Appointment: Kirstie Bosch WPtel: [phone] [facility] [place] (15 min) Moderate 03/17/2016 Appointment: Danitza Kirstie WPtel: [phone] [facility] [place] (15 min) Moderate 11/13/2015 Visit Plan: Hypertension - well controlled - continue with current medications, continue with no added salt diet. Pt has been encouraged to exercise daily. The pt has been advised to call the office if there are any acute concerns about change in blood pressure readings at home. Diabetes Mellitus - controlled - per recent FSBS reports. I have recommended for the patient to have follow up labs prior to the next office visit. The patient has been instructed to continue with current medications as previously directed, continue with regular FSBS monitoring to assure continued control of diabetes. Pt to call for any acute concerns, complaints, or if the blood glucose readings are starting to become less controlled. Check Vitamin D level - flu shot today 11/12/2015 Visit Plan: Hypertension - well controlled - continue with current medications, continue with no added salt diet. Pt has been encouraged to exercise daily. The pt has been advised to call the office if there are any acute concerns about change in blood pressure readings at home. Diabetes Mellitus - controlled - per recent FSBS reports. I have recommended for the patient to have follow up labs prior to the next office visit. The patient has been instructed to continue with current medications as previously directed, continue with regular FSBS monitoring to assure continued control of diabetes. Pt to call for any acute concerns, complaints, or if the blood glucose readings are starting to become less controlled. Check Vitamin D level - flu shot today 11/12/2015 Visit Plan: Hypertension - well controlled - continue with current medications, continue with no added salt diet. Pt has been encouraged to exercise daily. The pt has been advised to call the office if there are any acute concerns about change in blood pressure readings at home. Diabetes Mellitus - controlled - per recent FSBS reports. I have recommended for the patient to have follow up labs prior to the next office visit. The patient has been instructed to continue with current medications as previously directed, continue with regular FSBS monitoring to assure continued control of diabetes. Pt to call for any acute concerns, complaints, or if the blood glucose readings are starting to become less controlled. Check Vitamin D level - flu shot today 11/12/2015 Patient Education: Patient Medication Summary Completed 11/12/2015 Visit Plan: Medicare Exam - today we discussed the patients past history, immunizations, preventative exams/evaluations - colonoscopy, fecal occult blood testing, routine labs for renal function, glucose, cholesterol, osteoporosis evaluations, cardiovascular testing and cancer screenings. We have also discussed mental health and the signs/symptoms of depression. The patient was advised of home safety evaluations and the need to make sure that as the aging process continues, we need to be aware of different ways to make the home a safer place to reside. The patient has also been counseled that exercise is necessary - and of utmost importance as we age to help decrease fall risk and to maintain independece in the home. Today we discussed the need for the patient to create paperwork for Advanced directives as well as for the patient to provide this office with a copy of her DOPA paperwork for health care surrogate. 10/16/2015 Appointment: Diamond Betancourt WPtel: [phone] [place] [facility] - Annual Wellness Visit 10/16/2015 Patient Education: Patient Medication Summary Completed 10/16/2015 Visit Plan: Hypertension - well controlled - continue with current medications, continue with no added salt diet. Pt has been encouraged to exercise daily. The pt has been advised to call the office if there are any acute concerns about change in blood pressure readings at home. OA - discussed pt to use topical anti-inflammatory. 07/10/2015 Appointment: Kirstie Bosch WPtel: [phone] [place] (15 min) Moderate 07/10/2015 Patient Education: Patient Medication Summary Completed 07/10/2015 Visit Plan: Hypertension - uncontrolled - the patient's medications have been modified as documented in the visit note. The patient has been counseled to cut back on salt in diet for a no added salt diet, low fat diet, start an exercise program with low weight bearing exercises and higher aerobic activity for heart health. The patient is to check blood pressure readings as an outpatient and either fax, call, or email the readings to the office next week for practitioner to review. The pt is to call for acute concerns. Cough - recommended pt to stop enalapril and start on losartan. if the cough does not completely resolve in 2 weeks, then call the office. 04/10/2015 Appointment: Kirstie Bosch WPtel: [phone] [place] (15 min) Moderate 04/10/2015 Patient Education: Patient Medication Summary Completed 04/10/2015 Patient Education: Hypertension Completed 04/10/2015 Visit Plan: Sinusitis - Pt has acute infection - pain in face, maxillary region, Pt informed to use decongestant, RX given to patient, sinus rinses also recommended. Call if symptoms do not show improvement. Allergies - chronic - recommended pt to use allergy medication as prescribed. Pt has been counseled as to the appropriate use of the medication. Pt to call if allergy symptoms are not controlled with the medication. If using nasal spray , instructions as follows: Nasal spray- use twice daily, one spray per nostril twice daily, after 30 minutes, rinse out nose with saline spray.. Use opposite hand per nostril to spray in the nasal steroid allergy spray. Otitis Media - discussed the diagnosis with the patient, script sent electronically to the pharmacy for treatment of the infection. The disease course was discussed and the need to notify the clinic if symptoms do not improve or if they acutely worsen. 03/18/2015 Appointment: (15 min) Moderate 03/18/2015 Patient Education: Patient Medication Summary Completed 03/18/2015 Visit Plan: Hypertension - well controlled - continue with current medications, continue with no added salt diet. Pt has been encouraged to exercise daily. The pt has been advised to call the office if there are any acute concerns about change in blood pressure readings at home. Eczema - continue with betamethasone 03/06/2015 Appointment: Kirstie Bosch WPtel: [phone] [facility] [place] (15 min) Moderate 03/06/2015 Patient Education: Patient Medication Summary Completed 03/06/2015 Patient Education: Hypertension Completed 03/06/2015 Appointment: Kirstie Bosch WPtel: [phone] [facility] [place] (15 min) Moderate 02/19/2015 Appointment: Kirstie Bosch WPtel: [phone] [id number] (15 min) Moderate 02/10/2015 Visit Plan: Hypertension - well controlled - continue with current medications, continue with no added salt diet. Pt has been encouraged to exercise daily. The pt has been advised to call the office if there are any acute concerns about change in blood pressure readings at home. Seborrheic kxrkjnvoi-wpzixey-th treatment indicated at this time but instructed patient to call if lesion changes, becomes irritated or other concerns. Patient verbalized understanding of plan. 12/12/2014 Patient Education: Patient Medication Summary Completed 12/12/2014 Patient Education: Hypertension Completed 12/12/2014 Appointment: (15 min) Moderate 2014 Appointment: (15 min) Moderate 12/09/2014 Visit Plan: Diabetes Mellitus - controlled - per recent FSBS reports. I have recommended for the patient to have follow up labs prior to the next office visit. The patient has been instructed to continue with current medications as previously directed, continue with regular FSBS monitoring to assure continued control of diabetes. Pt to call for any acute concerns, complaints, or if the blood glucose readings are starting to become less controlled. Hypertension - well controlled - continue with current medications, continue with no added salt diet. Pt has been encouraged to exercise daily. The pt has been advised to call the office if there are any acute concerns about change in blood pressure readings at home. use the betamethasone ointment on the skin lesions on your legs until the lesions go away, then use as needed. use CERAVE cream on the legs and feet at least one time daily. flu shot given in clinic today 11/19/2014 Visit Plan: Diabetes Mellitus - controlled - per recent FSBS reports. I have recommended for the patient to have follow up labs prior to the next office visit. The patient has been instructed to continue with current medications as previously directed, continue with regular FSBS monitoring to assure continued control of diabetes. Pt to call for any acute concerns, complaints, or if the blood glucose readings are starting to become less controlled. Hypertension - well controlled - continue with current medications, continue with no added salt diet. Pt has been encouraged to exercise daily. The pt has been advised to call the office if there are any acute concerns about change in blood pressure readings at home. use the betamethasone ointment on the skin lesions on your legs until the lesions go away, then use as needed. use CERAVE cream on the legs and feet at least one time daily. flu shot given in clinic today 11/19/2014 Visit Plan: Diabetes Mellitus - controlled - per recent FSBS reports. I have recommended for the patient to have follow up labs prior to the next office visit. The patient has been instructed to continue with current medications as previously directed, continue with regular FSBS monitoring to assure continued control of diabetes. Pt to call for any acute concerns, complaints, or if the blood glucose readings are starting to become less controlled. Hypertension - well controlled - continue with current medications, continue with no added salt diet. Pt has been encouraged to exercise daily. The pt has been advised to call the office if there are any acute concerns about change in blood pressure readings at home. use the betamethasone ointment on the skin lesions on your legs until the lesions go away, then use as needed. use CERAVE cream on the legs and feet at least one time daily. flu shot given in clinic today 11/19/2014 Visit Plan: Diabetes Mellitus - controlled - per recent FSBS reports. I have recommended for the patient to have follow up labs prior to the next office visit. The patient has been instructed to continue with current medications as previously directed, continue with regular FSBS monitoring to assure continued control of diabetes. Pt to call for any acute concerns, complaints, or if the blood glucose readings are starting to become less controlled. Hypertension - well controlled - continue with current medications, continue with no added salt diet. Pt has been encouraged to exercise daily. The pt has been advised to call the office if there are any acute concerns about change in blood pressure readings at home. use the betamethasone ointment on the skin lesions on your legs until the lesions go away, then use as needed. use CERAVE cream on the legs and feet at least one time daily. flu shot given in clinic today 11/19/2014 Visit Plan: Diabetes Mellitus - controlled - per recent FSBS reports. I have recommended for the patient to have follow up labs prior to the next office visit. The patient has been instructed to continue with current medications as previously directed, continue with regular FSBS monitoring to assure continued control of diabetes. Pt to call for any acute concerns, complaints, or if the blood glucose readings are starting to become less controlled. Hypertension - well controlled - continue with current medications, continue with no added salt diet. Pt has been encouraged to exercise daily. The pt has been advised to call the office if there are any acute concerns about change in blood pressure readings at home. use the betamethasone ointment on the skin lesions on your legs until the lesions go away, then use as needed. use CERAVE cream on the legs and feet at least one time daily. flu shot given in clinic today 11/19/2014 Appointment: Kirstie Bosch WPtel: [phone] [place] (15 min) Moderate 11/19/2014 Patient Education: Patient Medication Summary Completed 11/19/2014 Patient Education: Hypertension Completed 11/19/2014 Visit Plan: Rash-improved with triamcinolone cream- continue current treatment and call if does not resolve completely or if any worse 08/16/2014 Appointment: (15 min) Moderate 08/16/2014 Patient Education: Patient Medication Summary Completed 08/16/2014 Appointment: (15 min) Moderate 08/12/2014 Visit Plan: Hypertension - well controlled - continue with current medications, continue with no added salt diet. Pt has been encouraged to exercise daily. The pt has been advised to call the office if there are any acute concerns about change in blood pressure readings at home. Diabetes Mellitus - controlled - per recent FSBS reports. I have recommended for the patient to have follow up labs prior to the next office visit. The patient has been instructed to continue with current medications as previously directed, continue with regular FSBS monitoring to assure continued control of diabetes. Pt to call for any acute concerns, complaints, or if the blood glucose readings are starting to become less controlled. Chronic rash-start steroid and anti fungal creams-recheck in 2 weeks 08/05/2014 Appointment: (S) New Patient 08/05/2014 Patient Education: Patient Medication Summary Completed 08/05/2014 Patient Education: Hypertension Completed 08/05/2014 Instructions Comment . Hypertension - well controlled - continue with current medications, continue with no added salt diet. Pt has been encouraged to exercise daily. The pt has been advised to call the office if there are any acute concerns about change in blood pressure readings at home. OA - discussed pt to use topical anti-inflammatory. Start Nexium daily x 2 weeks - if your cough has not improved on Tuesday let me know and we will get a chest x-ray. . Ongoing cough and reflux symptoms - will treat reflux - If no improvement will order chest x- ray on Tuesday Esophageal Reflux - the patient has been counseled against excessive intake of caffeine, spicy foods, peppermint, and cinnamon - all of which can exacerbate esophageal reflux. The patient is to take medications as prescribed and call the office if the symptoms are not improving. Start Nexium daily x 2 weeks - if your cough has not improved on Tuesday let me know and we will get a chest x-ray. . Ongoing cough and reflux symptoms - will treat reflux - If no improvement will order chest x- ray on Tuesday Esophageal Reflux - the patient has been counseled against excessive intake of caffeine, spicy foods, peppermint, and cinnamon - all of which can exacerbate esophageal reflux. The patient is to take medications as prescribed and call the office if the symptoms are not improving. stop ENALAPRIL - because this is probably causing the chronic cough start on LOSARTAN 25mg daily. if the cough does not completely resolve in 2 weeks, then call the office. . Hypertension - uncontrolled - the patient's medications have been modified as documented in the visit note. The patient has been counseled to cut back on salt in diet for a no added salt diet, low fat diet, start an exercise program with low weight bearing exercises and higher aerobic activity for heart health. The patient is to check blood pressure readings as an outpatient and either fax , call, or email the readings to the office next week for practitioner to review. The pt is to call for acute concerns. Cough - recommended pt to stop enalapril and start on losartan. if the cough does not completely resolve in 2 weeks, then call the office. . Hypertension - well controlled - continue with current medications, continue with no added salt diet. Pt has been encouraged to exercise daily. The pt has been advised to call the office if there are any acute concerns about change in blood pressure readings at home. Diabetes Mellitus - controlled - per recent FSBS reports. I have recommended for the patient to have follow up labs prior to the next office visit. The patient has been instructed to continue with current medications as previously directed, continue with regular FSBS monitoring to assure continued control of diabetes. Pt to call for any acute concerns, complaints, or if the blood glucose readings are starting to become less controlled. Hyperlipidemia - pt has been counseled about appropriate diet, exercise, and need for low fat food choices. I have discussed the need for the patient to take medications as prescribed. If the patient has negative side effects from the medication, they are to CALL the office and not abruptly discontinue the medication without discussion with a practitioner in the office. We will check labs in 3-6 months for follow up on the patient's chronic medical problem and to assure normal liver response to medications. Take over the counter Zyrtec or generic to with sinuses. Will give antibiotic drops for the ear, will give antibiotic pill take as directed until all pills are gone . Sinusitis - Pt has acute infection - pain in face, maxillary region, Pt informed to use decongestant, RX given to patient, sinus rinses also recommended. Call if symptoms do not show improvement. Allergies - chronic - recommended pt to use allergy medication as prescribed. Pt has been counseled as to the appropriate use of the medication. Pt to call if allergy symptoms are not controlled with the medication. If using nasal spray, instructions as follows: Nasal spray- use twice daily, one spray per nostril twice daily, after 30 minutes, rinse out nose with saline spray.. Use opposite hand per nostril to spray in the nasal steroid allergy spray. Otitis Media - discussed the diagnosis with the patient, script sent electronically to the pharmacy for treatment of the infection. The disease course was discussed and the need to notify the clinic if symptoms do not improve or if they acutely worsen. . Medicare Exam - today we discussed the patients past history, immunizations, preventative exams/evaluations - colonoscopy, fecal occult blood testing, routine labs for renal function, glucose, cholesterol, osteoporosis evaluations, cardiovascular testing and cancer screenings. We have also discussed mental health and the signs/symptoms of depression. The patient was advised of home safety evaluations and the need to make sure that as the aging process continues, we need to be aware of different ways to make the home a safer place to reside. The patient has also been counseled that exercise is necessary - and of utmost importance as we age to help decrease fall risk and to maintain independece in the home. Today we discussed the need for the patient to create paperwork for Advanced directives as well as for the patient to provide this office with a copy of her DOPA paperwork for health care surrogate. . Hypertension - well controlled - continue with current medications, continue with no added salt diet. Pt has been encouraged to exercise daily. The pt has been advised to call the office if there are any acute concerns about change in blood pressure readings at home. Diabetes Mellitus - controlled - per recent FSBS reports. I have recommended for the patient to have follow up labs prior to the next office visit. The patient has been instructed to continue with current medications as previously directed, continue with regular FSBS monitoring to assure continued control of diabetes. Pt to call for any acute concerns, complaints, or if the blood glucose readings are starting to become less controlled. Stress over 's illness and trying to find a place for him to continue to receive iv antibiotic therapy. . Well Adult - pt was counseled about diet, exercise, and encouraged to follow a heart healthy diet and increase activity level. The patient was instructed to RTC yearly for well adult exams and PRN for acute illnesses. The pt was also instructed to have yearly labs for check of cholesterol, thyroid, chem panel, CBC, and renal functioning. . Well Adult - pt was counseled about diet, exercise, and encouraged to follow a heart healthy diet and increase activity level. The patient was instructed to RTC yearly for well adult exams and PRN for acute illnesses. The pt was also instructed to have yearly labs for check of cholesterol, thyroid, chem panel, CBC, and renal functioning. come back next week for your labs increase your LOSARTAN to 50mg daily . Hypertension - well controlled - continue with current medications, continue with no added salt diet. Pt has been encouraged to exercise daily. The pt has been advised to call the office if there are any acute concerns about change in blood pressure readings at home. Diabetes Mellitus - controlled - per recent FSBS reports. I have recommended for the patient to have follow up labs prior to the next office visit. The patient has been instructed to continue with current medications as previously directed, continue with regular FSBS monitoring to assure continued control of diabetes. Pt to call for any acute concerns, complaints, or if the blood glucose readings are starting to become less controlled. Hyperlipidemia - pt has been counseled about appropriate diet, exercise, and need for low fat food choices. I have discussed the need for the patient to take medications as prescribed. If the patient has negative side effects from the medication, they are to CALL the office and not abruptly discontinue the medication without discussion with a practitioner in the office. We will check labs in 3-6 months for follow up on the patient's chronic medical problem and to assure normal liver response to medications. flu shot today . Hypertension - well controlled - continue with current medications, continue with no added salt diet. Pt has been encouraged to exercise daily. The pt has been advised to call the office if there are any acute concerns about change in blood pressure readings at home. Seborrheic vtpbwijbo-[id number]-wi treatment indicated at this time but instructed patient to call if lesion changes, becomes irritated or other concerns. Patient verbalized understanding of plan. start 5000 units of Vitamin D3 daily . Hypertension - well controlled - continue with current medications, continue with no added salt diet. Pt has been encouraged to exercise daily. The pt has been advised to call the office if there are any acute concerns about change in blood pressure readings at home. Eczema - continue with betamethasone . Rash-improved with triamcinolone cream-continue current treatment and call if does not resolve completely or if any worse . Hypertension - well controlled - continue with current medications, continue with no added salt diet. Pt has been encouraged to exercise daily. The pt has been advised to call the office if there are any acute concerns about change in blood pressure readings at home. Diabetes Mellitus - controlled - per recent FSBS reports. I have recommended for the patient to have follow up labs prior to the next office visit. The patient has been instructed to continue with current medications as previously directed, continue with regular FSBS monitoring to assure continued control of diabetes. Pt to call for any acute concerns, complaints, or if the blood glucose readings are starting to become less controlled. Check Vitamin D level - flu shot today . Hypertension - well controlled - continue with current medications, continue with no added salt diet. Pt has been encouraged to exercise daily. The pt has been advised to call the office if there are any acute concerns about change in blood pressure readings at home. Diabetes Mellitus - controlled - per recent FSBS reports. I have recommended for the patient to have follow up labs prior to the next office visit. The patient has been instructed to continue with current medications as previously directed, continue with regular FSBS monitoring to assure continued control of diabetes. Pt to call for any acute concerns, complaints, or if the blood glucose readings are starting to become less controlled. Check Vitamin D level - flu shot today . Hypertension - well controlled - continue with current medications, continue with no added salt diet. Pt has been encouraged to exercise daily. The pt has been advised to call the office if there are any acute concerns about change in blood pressure readings at home. Diabetes Mellitus - controlled - per recent FSBS reports. I have recommended for the patient to have follow up labs prior to the next office visit. The patient has been instructed to continue with current medications as previously directed, continue with regular FSBS monitoring to assure continued control of diabetes. Pt to call for any acute concerns, complaints, or if the blood glucose readings are starting to become less controlled. Check Vitamin D level - flu shot today use the betamethasone ointment on the skin lesions on your legs until the lesions go away, then use as needed. use CERAVE cream on the legs and feet at least one time daily. . Diabetes Mellitus - controlled - per recent FSBS reports. I have recommended for the patient to have follow up labs prior to the next office visit. The patient has been instructed to continue with current medications as previously directed, continue with regular FSBS monitoring to assure continued control of diabetes. Pt to call for any acute concerns, complaints, or if the blood glucose readings are starting to become less controlled. Hypertension - well controlled - continue with current medications, continue with no added salt diet. Pt has been encouraged to exercise daily. The pt has been advised to call the office if there are any acute concerns about change in blood pressure readings at home. use the betamethasone ointment on the skin lesions on your legs until the lesions go away, then use as needed. use CERAVE cream on the legs and feet at least one time daily. flu shot given in clinic today use the betamethasone ointment on the skin lesions on your legs until the lesions go away, then use as needed. use CERAVE cream on the legs and feet at least one time daily. . Diabetes Mellitus - controlled - per recent FSBS reports. I have recommended for the patient to have follow up labs prior to the next office visit. The patient has been instructed to continue with current medications as previously directed, continue with regular FSBS monitoring to assure continued control of diabetes. Pt to call for any acute concerns, complaints, or if the blood glucose readings are starting to become less controlled. Hypertension - well controlled - continue with current medications, continue with no added salt diet. Pt has been encouraged to exercise daily. The pt has been advised to call the office if there are any acute concerns about change in blood pressure readings at home. use the betamethasone ointment on the skin lesions on your legs until the lesions go away, then use as needed. use CERAVE cream on the legs and feet at least one time daily. flu shot given in clinic today use the betamethasone ointment on the skin lesions on your legs until the lesions go away, then use as needed. use CERAVE cream on the legs and feet at least one time daily. . Diabetes Mellitus - controlled - per recent FSBS reports. I have recommended for the patient to have follow up labs prior to the next office visit. The patient has been instructed to continue with current medications as previously directed, continue with regular FSBS monitoring to assure continued control of diabetes. Pt to call for any acute concerns, complaints, or if the blood glucose readings are starting to become less controlled. Hypertension - well controlled - continue with current medications, continue with no added salt diet. Pt has been encouraged to exercise daily. The pt has been advised to call the office if there are any acute concerns about change in blood pressure readings at home. use the betamethasone ointment on the skin lesions on your legs until the lesions go away, then use as needed. use CERAVE cream on the legs and feet at least one time daily. flu shot given in clinic today use the betamethasone ointment on the skin lesions on your legs until the lesions go away, then use as needed. use CERAVE cream on the legs and feet at least one time daily. . Diabetes Mellitus - controlled - per recent FSBS reports. I have recommended for the patient to have follow up labs prior to the next office visit. The patient has been instructed to continue with current medications as previously directed, continue with regular FSBS monitoring to assure continued control of diabetes. Pt to call for any acute concerns, complaints, or if the blood glucose readings are starting to become less controlled. Hypertension - well controlled - continue with current medications, continue with no added salt diet. Pt has been encouraged to exercise daily. The pt has been advised to call the office if there are any acute concerns about change in blood pressure readings at home. use the betamethasone ointment on the skin lesions on your legs until the lesions go away, then use as needed. use CERAVE cream on the legs and feet at least one time daily. flu shot given in clinic today use the betamethasone ointment on the skin lesions on your legs until the lesions go away, then use as needed. use CERAVE cream on the legs and feet at least one time daily. . Diabetes Mellitus - controlled - per recent FSBS reports. I have recommended for the patient to have follow up labs prior to the next office visit. The patient has been instructed to continue with current medications as previously directed, continue with regular FSBS monitoring to assure continued control of diabetes. Pt to call for any acute concerns, complaints, or if the blood glucose readings are starting to become less controlled. Hypertension - well controlled - continue with current medications, continue with no added salt diet. Pt has been encouraged to exercise daily. The pt has been advised to call the office if there are any acute concerns about change in blood pressure readings at home. use the betamethasone ointment on the skin lesions on your legs until the lesions go away, then use as needed. use CERAVE cream on the legs and feet at least one time daily. flu shot given in clinic today . Hypertension - well controlled - continue with current medications, continue with no added salt diet. Pt has been encouraged to exercise daily. The pt has been advised to call the office if there are any acute concerns about change in blood pressure readings at home. Diabetes Mellitus - controlled - per recent FSBS reports. I have recommended for the patient to have follow up labs prior to the next office visit. The patient has been instructed to continue with current medications as previously directed, continue with regular FSBS monitoring to assure continued control of diabetes. Pt to call for any acute concerns, complaints, or if the blood glucose readings are starting to become less controlled. Chronic rash-start steroid and anti fungal creams-recheck in 2 weeks
--- OUTSIDE RECORDS SUMMARY | 2017-08-23 20:56 | XMS REPORT | Continuity of Care Document ---
Author Author [facility] Organization [facility] Address Unknown Phone Unavailable Allergies Active Description Code Type Severity Reaction Onset Reported/Identified Relationship to Patient Clinical Status Yes No Known Drug Allergies [id number] Drug Allergy Unknown N/A 03/05/2014 Medications There is no data. Problems Date Dx Coded Attending Type Code Diagnosis Diagnosed By 01/10/2012 Ot 723.1 CERVICALGIA 01/10/2012 Ot V57.1 PHYSICAL THERAPY NEC 05/25/2013 ERI REYES CHIROPRACTIC NEUROLOGIST Ot 845.00 SPRAIN OF ANKLE NOS 05/25/2013 ERI REYES CHIROPRACTIC NEUROLOGIST Ot 959.7 LOWER LEG INJURY NOS 05/25/2013 ERI REYES CHIROPRACTIC NEUROLOGIST Ot E000.8 OTHER EXTERNAL CAUSE STATUS 05/25/2013 ERI REYES CHIROPRACTIC NEUROLOGIST Ot E927.0 OVEREXERTION FROM SUDDEN STRENUOUS MOVEM 03/05/2014 Ot 721.0 03/05/2014 HUMPHREY REDD MD Ot 729.5 03/05/2014 Ot 721.0 03/05/2014 HUMPHREY REDD MD Ot 729.5 03/06/2014 Ot 721.0 03/06/2014 HUMPHREY REDD MD Ot 729.5 03/13/2014 HUMPHREY REDD MD Ot 786.50 03/28/2014 HUMPHREY REDD MD Ot 786.50 07/02/2014 Ot 721.0 07/02/2014 HUMPHREY REDD MD Ot 729.5 07/02/2014 HUMPHREY REDD MD Ot 786.50 07/02/2014 HUMPHREY REDD MD Ot 786.50 07/31/2014 HUMPHREY REDD MD Ot 786.50 11/11/2014 HUMPHREY REDD MD Ot 786.50 11/26/2015 Ot 721.0 CERVICAL SPONDYLOSIS 11/26/2015 HUMPHREY REDD MD Ot 729.5 PAIN IN LIMB 11/26/2015 HUMPHREY REDD MD Ot 786.50 CHEST PAIN NOS 11/27/2015 MERRITT VELÁSQUEZ MD Ot Z12.31 ENCNTR SCREEN MAMMOGRAM FOR MALIGNANT NE 11/27/2015 MERRITT VELÁSQUEZ MD Ot Z12.31 ENCNTR SCREEN MAMMOGRAM FOR MALIGNANT NE 12/08/2015 MERRITT VELÁSQUEZ MD Ot Z12.31 ENCNTR SCREEN MAMMOGRAM FOR MALIGNANT NE 12/30/2015 JOHANNY MURO CHIROPRACTIC NEUROLOGIST Ot R92.8 OTH ABN AND INCONCLUSIVE FINDINGS ON DX 01/14/2016 JOHANNY MURO CHIROPRACTIC NEUROLOGIST Ot R92.8 OTH ABN AND INCONCLUSIVE FINDINGS ON DX 12/01/2016 MERRITT VELÁSQUEZ MD Ot Z12.31 ENCNTR SCREEN MAMMOGRAM FOR MALIGNANT NE 12/01/2016 JOHANNY MURO APRN Ot R92.8 OTH ABN AND INCONCLUSIVE FINDINGS ON DX 12/01/2016 MERRITT VELÁSQUEZ MD Ot Z12.31 ENCNTR SCREEN MAMMOGRAM FOR MALIGNANT NE 12/07/2016 MERRITT VELÁSQUEZ MD Ot Z12.31 ENCNTR SCREEN MAMMOGRAM FOR MALIGNANT NE 12/29/2016 MERRITT VELÁSQUEZ MD Ot Z12.31 ENCNTR SCREEN MAMMOGRAM FOR MALIGNANT NE Procedures There is no data. Results There is no data. Encounters ACCT No. Visit Date/Time Discharge Status Pt. Type Provider Facility Loc./Unit Complaint [id number] 12/13/2016 12:18:00 12/13/2016 23:59:59 CLS Outpatient MERRITT VELÁSQUEZ MD [facility] RAD SCREENING [id number] 12/29/2015 13:14:00 12/29/2015 23:59:59 CLS Outpatient JOHANNY MURO APRN [facility] RAD ABNORMAL MAMMO [id number] 11/26/2015 14:30:00 11/26/2015 23:59:59 CLS Outpatient MERRITT VELÁSQUEZ MD [facility] RAD SCREENING [id number] 03/05/2014 07:06:00 03/05/2014 23:59:59 CLS Outpatient HUMPHREY REDD MD [facility] CARD CP [id number] 05/25/2013 14:05:00 05/25/2013 23:59:59 CLS Preadmit HUMPHREY REDD MD [facility] RAD RT ANKLE SWELLING [id number] 05/25/2013 14:15:00 05/25/2013 15:18:00 DIS Emergency REYESERI APRN [facility] ER FALL/LEFT FOOT INJURY [id number] 08/15/2012 14:07:00 08/15/2012 23:59:59 CLS Outpatient HUMPHREY REDD MD [facility] RAD 3 TOE PAIN INJ AT HOME [id number] 08/23/2017 20:44:00 ACT Emergency JASS GONZALEZ [facility] ER FALL;HEAD INJ [id number] 12/14/2011 08:07:00 Document Registration [id number] 10/28/2011 08:32:00 Document Registration [id number] 03/16/2014 02:24:38 ACT Document Registration [id number] 12/16/2016 16:08:27 12/16/2016 23:59:59 CLS Outpatient
--- OUTSIDE RECORDS SUMMARY | 2017-08-23 20:56 | XMS REPORT | CCD ---
Author Author Yoly Dockery MD, [facility] Address [address] [place] [address] Phone Care Team Providers Care Senior Human Resources Representative Name Role Phone PP Unavailable CCM Unavailable Summary Purpose Interface Exchange Insurance Providers Payer name Policy type / Coverage type Covered green party ID Effective Begin Date Effective End Date [employer] Commercial Insurance [id number] 2014 Unknown WPS Medicare Part B Commercial Insurance [id number] 2014 Unknown Family history Mother Diagnosis Age [...] Unknown Retired 08/05/[address]: 504786669 Never smoker 08/05/[address]: 102022863 Never drinks alcohol 08/05/2014 Allergies, Adverse Reactions, [...] Fill Instructions Lexapro 5 mg tablet RxNorm: 659677 1 Tablet(s) PO QHS 201706/12/2017 Active Lexapro 5 mg tablet RxNorm: 960258 1 Tablet(s) PO QHS 201703/14/2017 Inactive Lexapro 5 mg tablet RxNorm: 571408 1 Tablet(s) PO QHS 201703/13/2017 Inactive Tamiflu 75 mg capsule RxNorm: 518809 1 Capsule(s) PO BID 201702/09/2017 Inactive Tamiflu 75 mg capsule RxNorm: 642546 1 Capsule(s) PO BID 201702/14/2017 Inactive Zoloft 50 mg tablet RxNorm: 938347 TABLET(S) 1 TABLET(S) PO DAILY 01/24/2017 01/18/2018 Active Fosamax 70 mg tablet RxNorm: 611294 1 TABLET(S) PO WEEKLY 12/0306/02/2017 Active losartan 50 mg tablet RxNorm: 834313 1 Tablet(s) PO daily TAKE 1 TABLET BY MOUTH EVERY DAY 11/25/2016 05/18/2018 Active hydrochlorothiazide 25 mg tablet RxNorm: 588272 TABLET(S) 1 TABLET(S) PO DAILY 11/23/2016 04/21/2017 Active metformin 1,000 mg tablet RxNorm: 727182 1 TABLET(S) PO BID 08/19/2017 Active Nexium 24HR 22.3 mg capsule,delayed release RxNorm: 568640 1 Capsule(s) PO daily 11/17/2016 11/11/2017 Active Nexium 24HR 22.3 mg capsule,delayed release RxNorm: 503051 1 Capsule(s) PO daily 11/17/2016 11/16/2016 Inactive Nexium 24HR 22.3 mg capsule,delayed release RxNorm: 972765 1 Capsule(s) PO daily 11/12/2016 11/16/2016 Inactive Klor-Con 10 mEq tablet,extended release RxNorm: 423405 1 TABLET(S) PO BID 09/20/2016 06/16/2017 Active betamethasone valerate 0.1 % topical ointment RxNorm: 413384 1 Application TOP TID as needed 08/02/2016 10/30/2016 Inactive hydrochlorothiazide 25 mg tablet RxNorm: 413419 TABLET(S) 1 TABLET(S) PO DAILY 06/09/2016 11/05/2016 Inactive losartan 25 mg tablet RxNorm: 788414 TAKE 1 TABLET BY MOUTH EVERY DAY 05/21/2016 11/16/2016 Inactive losartan 25 mg tablet RxNorm: 937209 Tablet(s) 1 TABLET(S) PO DAILY 03/17/2016 09/12/2016 Inactive Fosamax 70 mg tablet RxNorm: 483612 1 Tablet(s) PO weekly 03/1709/14/2016 Inactive simvastatin 20 mg tablet RxNorm: 117357 1 TABLET(S) PO DAILY 12/03/2016 Inactive metformin 1,000 mg tablet RxNorm: 223788 1 TABLET(S) PO BID 10/17/2016 Inactive Zoloft 50 mg tablet RxNorm: 819502 Tablet(s) 1 TABLET(S) PO DAILY 12/17/2015 2016 Inactive hydrochlorothiazide 25 mg tablet RxNorm: 755258 Tablet(s) 1 TABLET(S) PO DAILY 12/03/2015 05/30/2016 Inactive losartan 25 mg tablet RxNorm: 976605 1 TABLET(S) PO DAILY 201503/16/2016 Inactive Klor-Con 10 mEq tablet,extended release RxNorm: 197522 1 TABLET(S) PO BID 11/05/2015 07/31/2016 Inactive hydrochlorothiazide 25 mg tablet RxNorm: 656231 1 TABLET(S) PO DAILY (PLEASE CALL OFFICE FOR APPOINTMENT 07/30/20152015 Inactive [SAVINGS FOR NON-COVERED DRUGS -- BIN:[id number], PCN: ASPROD1, Group: XXXXX, ID# [id number], Questions: [phone]. THIS IS NOT INSURANCE.] Cipro 500 mg tablet RxNorm: 725175 1 Tablet(s) PO BID 201506/08/2015 Inactive Cipro 500 mg tablet RxNorm: 494144 1 Tablet(s) PO BID 201506/15/2015 Inactive Zoloft 50 mg tablet RxNorm: 470423 1 TABLET(S) PO DAILY 201511/21/2015 Inactive losartan 25 mg tablet RxNorm: 589808 1 Tablet(s) PO daily 201511/05/2015 Inactive Zoloft 50 mg tablet RxNorm: 997533 TAKE 1 TABLET BY MOUTH DAILY 03/31/2015 09/26/2015 Inactive Zoloft 50 mg tablet RxNorm: 908796 1 Tablet(s) PO daily 201503/30/2015 Inactive enalapril maleate 5 mg tablet RxNorm: 298067 TAKE 1 TABLET BY MOUTH DAILY 03/31/2015 04/09/2015 Inactive amoxicillin 500 mg tablet RxNorm: 748755 1 Tablet(s) PO BID 10/201503/24/2015 Inactive ciprofloxacin 0.3 % eye drops RxNorm: 056641 1-2 Drop(s) OTIC TID 03/18/2015 03/27/2015 Inactive betamethasone valerate 0.1 % topical ointment RxNorm: 585003 1 Application TOP TID 03/06/2015 10/01/2015 Inactive hydrochlorothiazide 25 mg tablet RxNorm: 694421 1 TABLET(S) PO DAILY (PLEASE CALL OFFICE FOR APPOINTMENT 01/21/20152015 Inactive [SAVINGS FOR NON-COVERED DRUGS -- BIN:[id number], PCN: ASPROD1, Group: XXXXX, ID# XXXXXXX, Questions: [phone]. THIS IS NOT INSURANCE.] simvastatin 20 mg tablet RxNorm: 473166 1 Tablet(s) PO daily 12/26/2015 Inactive metformin 1,000 mg tablet RxNorm: 412338 TAKE 1 TWICE DAILY 06/24/2015 Inactive metformin 1,000 mg tablet RxNorm: 949746 1 Tablet(s) PO BID 12/26/2014 Inactive metformin 500 mg tablet RxNorm: 992922 1 Tablet(s) PO BID 12/2712/26/2014 Inactive Fosamax 70 mg tablet RxNorm: 045107 1 Tablet(s) PO QW weekly 12/14/2015 Inactive betamethasone valerate 0.1 % topical ointment RxNorm: 167870 1 Application TOP TID 11/19/2014 12/02/2014 Inactive hydrochlorothiazide 25 mg tablet RxNorm: 852178 1 TABLET(S) PO DAILY (PLEASE CALL OFFICE FOR APPOINTMENT 10/31/20142014 Inactive [SAVINGS FOR NON-COVERED DRUGS -- BIN:[id number], PCN: ASPROD1, Group: XXXXX, ID# [id number], Questions: [phone]. THIS IS NOT INSURANCE.] Klor-Con 10 mEq tablet,extended release RxNorm: 967036 1 Tablet(s) PO BID 10/25/2014 10/19/2015 Inactive Klor-Con 10 mEq tablet,extended release RxNorm: 928916 1 Tablet(s) PO BID 10/25/2014 10/24/2014 Inactive Klor-Con 10 mEq tablet,extended release RxNorm: 078436 1 Tablet(s) PO BID 10/25/2014 10/24/2014 Inactive enalapril maleate 5 mg tablet RxNorm: 710726 TAKE 1 TABLET BY MOUTH DAILY 10/01/2014 03/29/2015 Inactive triamcinolone acetonide 0.1 % topical cream RxNorm: 3230640 1 Application TOP BID 08/05/2014 08/18/2014 Inactive clotrimazole 1 % topical cream RxNorm: 818142 1 Application TOP BID 08/05/2014 08/18/2014 Inactive apply to rash twice daily hydrochlorothiazide 25 mg tablet RxNorm: 042470 1 TABLET(S) PO DAILY (PLEASE CALL OFFICE FOR APPOINTMENT 08/01/20142014 Inactive [SAVINGS FOR NON-COVERED DRUGS -- BIN:843514, PCN: ASPROD1, Group: XXXXX, ID# XXXXXXX, Questions: [phone]. THIS IS NOT INSURANCE.] hydrochlorothiazide 25 mg tablet RxNorm: 667763 1 Tablet(s) PO daily (please call office for appointment 06/19/20142014 Inactive [SAVINGS FOR NON-COVERED DRUGS -- BIN:705047, PCN: ASPROD1, Group: XXXXX, ID# XXXXXXX, Questions: [phone]. THIS IS NOT INSURANCE.] hydrochlorothiazide 25 mg tablet RxNorm: 880400 1 Tablet(s) PO daily (please call office for appointment 06/19/20142014 Inactive vitamin E 1,000 unit tablet RxNorm: 544750 1 Tablet(s) PO daily No Start Date Active One Touch Test strips RxNorm: Miscellaneous No Start Date Active acyclovir 400 mg tablet RxNorm: 568027 1 Tablet(s) PO daily No Start Date Active Vitamin B-12 1,000 mcg tablet RxNorm: 327037 1 Tablet(s) PO daily No Start Date Active Vitamin D3 5,000 unit tablet RxNorm: 889418 1 Tablet(s) PO daily No Start Date Active Vitamin C 500 mg chewable tablet RxNorm: 894643 1 Tablet(s) PO daily No Start Date Active enalapril maleate 5 mg tablet RxNorm: 962147 1 Tablet(s) PO daily No Start Date 09/30/2014 Inactive Vitamin D2 50,000 unit capsule RxNorm: 956290 1 Capsule(s) PO weekly No Start Date 05/26/2016 Inactive Zoloft 50 mg tablet RxNorm: 148050 1 Tablet(s) PO daily No Start Date 03/30/2015 Inactive KCL 10 meq RxNorm: 1 Tablet(s) PO BID No Start Date 10/25/2014 Inactive sertraline 50 mg tablet RxNorm: 477057 oral No Start Date 05/27/2016 Inactive Fosamax 70 mg tablet RxNorm: 314492 1 Tablet(s) PO weekly No Start Date 03/16/2016 Inactive metformin 500 mg tablet RxNorm: 832988 1 Tablet(s) PO BID No Start Date [...] (primary) hypertension ICD-10: I10 ICD-9: 401.9 01/05/2017 Mixed hyperlipidemia ICD-10: E78.2 ICD-9: 272.2 11/25/2016 Encounter for screening mammogram for malignant neoplasm of breast ICD-10: Z12.31 ICD-9: V76.12 11/25/2016 Encounter for immunization ICD-10: Z23 ICD-9: V03.9 11/25/2016 Gastro-esophageal reflux disease without esophagitis ICD-10 [...] Code Item Item Code Result Date %Hba1C Tux911 % HbA1c 43944-4 5.9 % 12/01/2016 %Hba1C Mmm638 Gluc Ave 123 mg/dL 12/01/2016 Comp Metabolic Ovd581 NA 139 mEq/L 12/01/2016 Comp Metabolic Ieh421 K 3.9 mEq/L 12/01/2016 Comp Metabolic Dzz881 CL 102 mEq/L 12/01/2016 Comp Metabolic Huq338 CO2 27.0 mEq/L 12/01/2016 Comp Metabolic Jzi440 ANION GAP 14 12/01/2016 Comp Metabolic Tsh300 GLUCOSE 118 mg/dL 12/01/2016 Comp Metabolic Axk590 Creat 1.3 mg/dL 12/01/2016 Comp Metabolic Axz011 eGFR 43 ml/min/1.73m2 12/01/2016 Comp Metabolic Ucg254 BUN 26 mg/dL 12/01/2016 Comp Metabolic Tbv259 B/C Ratio 20.0 Ratio 12/01/2016 Comp Metabolic Fmb336 CALCIUM 9.0 mg/dL 12/01/2016 Comp Metabolic Rjv927 ALK PHOS 84 U/L 12/01/2016 Comp Metabolic Nkx802 AST(SGOT) 9 U/L 12/01/2016 Comp Metabolic Pke483 ALT(SGPT) 7 U/L 12/01/2016 Comp Metabolic Ujw777 BILI T 0.5 mg/dL 12/01/2016 Comp Metabolic Oyr223 ALBUMIN 3.8 g/dL 12/01/2016 Comp Metabolic Yti796 TPRO 6.2 g/dL 12/01/2016 Comp Metabolic Qrf840 GLOB 2.4 g/dL 12/01/2016 Comp Metabolic Yqd846 A/G Ratio 1.6 Ratio 12/01/2016 Comp Metabolic Ikb336 Osmo 283 mOsmo 12/01/2016 Cbc With Differential [...] 20.7 % 12/01/2016 Cbc With Differential Ord2 MCH 29.9 pg 12/01/2016 Cbc With Differential Ord2 [place]% 9.4 % 12/01/2016 Cbc With Differential Ord2 MCHC [...] 1.76 K/ul 12/01/2016 Cbc With Differential Ord2 [place] ABS# 0.8 K/ul 12/01/2016 Cbc With Differential [...] Ord6 hTSH II 1.99 uIU/mL 06/14/2016 %Hba1C Xuu721 % HbA1c 32363-8 5.9 % 06/14/2016 %Hba1C Spy894 Gluc Ave 123 mg/dL 06/14/2016 Microalbumin Phq732 MicroAlb <0.7 mg/dL 06/14/2016 Comp Metabolic Wdu848 NA 139 mEq/L 06/14/2016 Comp Metabolic Iof981 K 4.0 mEq/L 06/14/2016 Comp Metabolic Hgc417 CL 100 mEq/L 06/14/2016 Comp Metabolic Ijf892 CO2 26.0 mEq/L 06/14/2016 Comp Metabolic Zns507 ANION GAP 17 06/14/2016 Comp Metabolic Smh174 GLUCOSE 122 mg/dL 06/14/2016 Comp Metabolic Ocn024 Creat 1.2 mg/dL 06/14/2016 Comp Metabolic Pqk373 eGFR 46 ml/min/1.73m2 06/14/2016 Comp Metabolic Spx657 BUN 27 mg/dL 06/14/2016 Comp Metabolic Dcc107 B/C Ratio 22.3 Ratio 06/14/2016 Comp Metabolic Bow401 CALCIUM 9.2 mg/dL 06/14/2016 Comp Metabolic Ooc479 ALK PHOS 89 U/L 06/14/2016 Comp Metabolic Set836 AST(SGOT) 9 U/L 06/14/2016 Comp Metabolic Xwm104 ALT(SGPT) 9 U/L 06/14/2016 Comp Metabolic Wxh092 BILI T 0.5 mg/dL 06/14/2016 Comp Metabolic Vkh314 ALBUMIN 3.9 g/dL 06/14/2016 Comp Metabolic Qcf238 TPRO 6.5 g/dL 06/14/2016 Comp Metabolic Dkf536 GLOB 2.6 g/dL 06/14/2016 Comp Metabolic Dtz233 A/G Ratio 1.5 Ratio 06/14/2016 Comp Metabolic Njp093 Osmo 284 mOsmo 06/14/2016 Cbc With Differential [...] 30.3 pg 06/14/2016 Cbc With Differential Ord2 [place]% 10.3 % 06/14/2016 Cbc With Differential Ord2 [...] 1.98 K/ul 06/14/2016 Cbc With Differential Ord2 [place] ABS# 1.0 K/ul 06/14/2016 Cbc With Differential Ord2 Eos ABS# 0.1 K/ul 06/14/2016 Cbc With Differential Ord2 Baso ABS# 0.0 K/ul 06/14/2016 Comp Metabolic Ory642 NA 140 mEq/L 11/13/2015 Comp Metabolic Prp800 K 4.3 mEq/L 11/13/2015 Comp Metabolic Nhg041 CL 101 mEq/L 11/13/2015 Comp Metabolic Mpt188 CO2 31.0 mEq/L 11/13/2015 Comp Metabolic Zcj707 ANION GAP 12 11/13/2015 Comp Metabolic Glp721 GLUCOSE 108 mg/dL 11/13/2015 Comp Metabolic Itf430 Creat 1.1 mg/dL 11/13/2015 Comp Metabolic Ykm688 eGFR 54 ml/min/1.73m2 11/13/2015 Comp Metabolic Wbc195 BUN 23 mg/dL 11/13/2015 Comp Metabolic Imt493 B/C Ratio 21.5 Ratio 11/13/2015 Comp Metabolic Bhw549 CALCIUM 9.8 mg/dL 11/13/2015 Comp Metabolic Ced698 ALK PHOS 69 U/L 11/13/2015 Comp Metabolic Fjn299 AST(SGOT) 11 U/L 11/13/2015 Comp Metabolic Oeb711 ALT(SGPT) 8 U/L 11/13/2015 Comp Metabolic Ohk427 BILI T 0.5 mg/dL 11/13/2015 Comp Metabolic Zff526 ALBUMIN 4.0 g/dL 11/13/2015 Comp Metabolic Ero442 TPRO 6.4 g/dL 11/13/2015 Comp Metabolic Yqs418 GLOB 2.4 g/dL 11/13/2015 Comp Metabolic Ejg251 A/G Ratio 1.7 Ratio 11/13/2015 Comp Metabolic Vwv557 Osmo 284 mOsmo 11/13/2015 Vitamin D 25 Oh Nol2359 VITAMIN D, 25 HYDROXY 51.34 ng/mL Tsh [...] 30.6 pg 11/12/2015 Cbc With Differential Ord2 [place]% 10.1 % 11/12/2015 Cbc With Differential Ord2 MCHC 34.3 pg 11/12/2015 Cbc With Differential Ord2 Eos% 1.9 % 11/12/2015 Cbc With Differential Ord2 PLT 256 K/ul 11/12/2015 Cbc With Differential Ord2 Baso% 0.5 % 11/12/2015 Cbc With Differential Ord2 RDW 13.0 % 11/12/2015 Cbc With Differential Ord2 Neut ABS# 4.49 K/ul 11/12/2015 Cbc With Differential Ord2 Lymph ABS# 2.10 K/ul 11/12/2015 Cbc With Differential Ord2 [place] ABS# 0.8 K/ul 11/12/2015 Cbc With Differential Ord2 Eos ABS# 0.1 K/ul 11/12/2015 Cbc With Differential Ord2 Baso ABS# 0.0 K/ul 11/12/2015 %Hba1C Fzt532 % HbA1c 83101-7 5.8 % 11/12/2015 %Hba1C Gsq648 Gluc Ave 120 mg/dL 11/12/2015 Vitamin D 25 Oh Cld1214 VITAMIN D, 25 HYDROXY 25.02 ng/mL Lipid Ord30 CHOL 162 mg/dL 03/06/2015 Lipid Ord30 HDL 54.0 mg/dl 03/06/2015 Lipid Ord30 TRIG 114 mg/dL 03/06/2015 Lipid Ord30 LDL 85 mg/dL 03/06/2015 Lipid Ord30 C/HDL 3.0 Ratio 03/06/2015 %Hba1C Wnl936 % HbA1c 15954-3 5.8 % 03/06/2015 %Hba1C Eqw606 Gluc Ave 120 mg/dL 03/06/2015 Comp Metabolic Mfm473 NA 137 mEq/L 03/06/2015 Comp Metabolic Fai507 K 4.5 mEq/L 03/06/2015 Comp Metabolic Cgn173 CL 100 mEq/L 03/06/2015 Comp Metabolic Vgs340 CO2 28.0 mEq/L 03/06/2015 Comp Metabolic Fnx845 ANION GAP 14 03/06/2015 Comp Metabolic Guc638 GLUCOSE 87 mg/dL 03/06/2015 Comp Metabolic Qxu849 Creat 1.1 mg/dL 03/06/2015 Comp Metabolic Lmu183 eGFR 52 ml/min/1.73m2 03/06/2015 Comp Metabolic Cli378 BUN 31 mg/dL 03/06/2015 Comp Metabolic Idu673 B/C Ratio 28.2 Ratio 03/06/2015 Comp Metabolic Tkc322 CALCIUM 9.2 mg/dL 03/06/2015 Comp Metabolic Nek751 ALK PHOS 72 U/L 03/06/2015 Comp Metabolic Ctl880 AST(SGOT) 9 U/L 03/06/2015 Comp Metabolic Rvb940 ALT(SGPT) 7 U/L 03/06/2015 Comp Metabolic Qne220 BILI T 0.5 mg/dL 03/06/2015 Comp Metabolic Yzj103 ALBUMIN 4.1 g/dL 03/06/2015 Comp Metabolic Umt131 TPRO 6.3 g/dL 03/06/2015 Comp Metabolic Fpm838 GLOB 2.2 g/dL 03/06/2015 Comp Metabolic Tib349 A/G Ratio 1.9 Ratio 03/06/2015 Comp Metabolic Kfe578 Osmo 280 mOsmo 03/06/2015 %Hba1C Vxi776 % HbA1c 63861-0 5.8 % 11/20/2014 %Hba1C Jje790 Gluc Ave 120 mg/dL 11/20/2014 Tsh Ord6 [...] Ord30 C/HDL 3.1 Ratio 11/19/2014 Comp Metabolic Inr193 NA 137 mEq/L 11/19/2014 Comp Metabolic Rrz975 K 4.2 mEq/L 11/19/2014 Comp Metabolic Xtk888 CL 99 mEq/L 11/19/2014 Comp Metabolic Odt377 CO2 30.0 mEq/L 11/19/2014 Comp Metabolic Hec552 ANION GAP 12 11/19/2014 Comp Metabolic Yry113 GLUCOSE 92 mg/dL 11/19/2014 Comp Metabolic Yrq467 Creat 0.9 mg/dL 11/19/2014 Comp Metabolic Jvm303 eGFR 68 ml/min/1.73m2 11/19/2014 Comp Metabolic Aoq207 BUN 23 mg/dL 11/19/2014 Comp Metabolic Luy467 B/C Ratio 26.4 Ratio 11/19/2014 Comp Metabolic Edf583 CALCIUM 9.7 mg/dL 11/19/2014 Comp Metabolic Hgs120 ALK PHOS 84 U/L 11/19/2014 Comp Metabolic Eam199 AST(SGOT) 9 U/L 11/19/2014 Comp Metabolic Dzn208 ALT(SGPT) 9 U/L 11/19/2014 Comp Metabolic Oea320 BILI T 0.5 mg/dL 11/19/2014 Comp Metabolic Ffl556 ALBUMIN 4.3 g/dL 11/19/2014 Comp Metabolic Ssc725 TPRO 6.7 g/dL 11/19/2014 Comp Metabolic Nvf378 GLOB 2.4 g/dL 11/19/2014 Comp Metabolic Pcc876 A/G Ratio 1.8 Ratio 11/19/2014 Comp Metabolic Cjf235 Osmo 277 mOsmo 11/19/2014 Review of Systems [...] skin Location: face 05/27/2016 john k left sabianist at hair line Full Exam - General [...] skin Location: face 11/12/2015 john k left sabianist at hair line Full Exam - General [...] skin Location: face 07/10/2015 john k left sabianist at hair line Full Exam - General [...] skin Location: face 04/10/2015 john k left sabianist at hair line Full Exam - General [...] skin Location: face 03/06/2015 john k left sabianist at hair line Full Exam - General [...] skin Location: face 12/12/2014 john k left sabianist at hair line Full Exam - General [...] Procedure Codes Date IMMUNIZATION ADMIN CPT -4: 13883 11/25/2016 FLU VAC NO PRSV 4 JEAN-CLAUDE 3 YRS+ CPT-4: 84392 11/25/2016 ADMIN INFLUENZA VIRUS VAC CPT-4: G0008 11/12/2015 FLU VACC 4 JEAN-CLAUDE 3 YRS PLUS IM SNOMED CT: 23162752 CPT-4: 74703 11/12/2015 PPPS, SUBSEQ VISIT CPT -4: G0439 10/16/2015 ADMIN INFLUENZA VIRUS VAC Formatting Model/CDA Sections, Assigned to CPT-4: [id number] 11/19/2014 FLU VAC NO PRSV 4 JEAN-CLAUDE 3 YRS+ CPT-4: 07285 11/19/2014 Vital Signs Date Vital 01/05/2017 Blood Pressure 1: 146/76 Code : 8480-6 Blood Pressure 1: 138/74 Code: 8480-6 BMI: 24.0 Code: 00079-4 Heart Rate 1: 64 bpm Heart Rate 1: 64 bpm Height: 5'4" Respiratory Rate: 20 bpm SpO2: 98% Weight: 140 lbs 11/25/2016 Blood Pressure 1: 142/78 Code : 8480-6 BMI: 24.3 Code : 98626-8 Heart Rate 1 : 62 bpm Height: 5'4" SpO2: 95% Weight: 141 lbs 8 oz 11/12/2016 Blood Pressure 1: 132/68 Code : 8480-6 BMI: 24.9 Code : 37193-7 Heart Rate 1 : 64 bpm Height: 5'4" SpO2: 96% Weight: 145 lbs 05/27/2016 Blood Pressure 1: 132/76 Code : 8480-6 BMI: 25.1 Code : 44533-3 Heart Rate 1 : 67 bpm Height: 5'4" SpO2: 98% Weight: 146 lbs 05/05/2016 Blood Pressure 1: 120/62 Code : 8480-6 BMI: 24.9 Code : 24574-6 Heart Rate 1 : 60 bpm Height: 5'4" SpO2: 95% Weight: 145 lbs 11/12/2015 Blood Pressure 1: 136/78 Code : 8480-6 BMI: 24.2 Code : 43227-7 Heart Rate 1 : 65 bpm Height: 5'4" SpO2: 98% Weight: 141 lbs 10/16/2015 Blood Pressure 1: 118/64 Code : 8480-6 BMI: 24.0 Code : 33473-7 Heart Rate 1 : 63 bpm Height: 5'4" SpO2: 94% Weight: 140 lbs 07/10/2015 Blood Pressure 1: 120/68 Code : 8480-6 BMI: 23.3 Code : 56030-4 Heart Rate 1 : 59 bpm Height: 5'4" SpO2: 97% Weight: 136 lbs 04/10/2015 Blood Pressure 1: 120/60 Code : 8480-6 BMI: 23.3 Code : 23168-8 Heart Rate 1 : 62 bpm Height: 5'4" SpO2: 93% Weight: 136 lbs 03/18/2015 Blood Pressure 1: 120/58 Code : 8480-6 BMI: 23.3 Code : 44393-6 Heart Rate 1 : 81 bpm Height: 5'4" SpO2: 98% Weight: 136 lbs 03/06/2015 Blood Pressure 1: 128/74 Code : 8480-6 BMI: 23.2 Code : 16297-1 Heart Rate 1 : 68 bpm Height: 5'4" SpO2: 94% Weight: 135 lbs 12/12/2014 Blood Pressure 1: 120/68 Code : 8480-6 BMI: 23.2 Code : 84272-9 Heart Rate 1 : 58 bpm Height: 5'4" SpO2: 96% Weight: 135 lbs 11/19/2014 Blood Pressure 1: 136/72 Code : 8480-6 BMI: 23.5 Code : 70941-0 Heart Rate 1 : 70 bpm Height: 5'4" SpO2: 96% Weight: 137 lbs 08/16/2014 Blood Pressure 1: 130/60 Code : 8480-6 BMI: 24.7 Code : 39150-3 Heart Rate 1 : 63 bpm Height: 5'4" SpO2: 96% Weight: 144 lbs 08/05/2014 Blood Pressure 1: 136/74 Code : 8480-6 BMI: 24.4 Code : 82058-3 Heart Rate 1 : 60 bpm Height: [...] data Encounters Encounter Performer Location Codes Date ([id number]) [id number] EST. PATIENT, LEVEL IV Diagnosis: Essential (primary) hypertension[ICD10: I10] Diagnosis: Type 2 diabetes mellitus without complications[ICD10: E11.9] Kirstie Bosch MD, [facility] CPT-4: 84193 01/05/2017 ([id number]) 62738 EST. PATIENT, LEVEL IV Diagnosis: Type 2 diabetes mellitus without complications[ICD10: E11.9] Diagnosis: Essential (primary) hypertension[ICD10: I10] Diagnosis: Mixed hyperlipidemia[ICD10: E78.2] Diagnosis: Encounter for screening mammogram for malignant neoplasm of breast[ ICD10: Z12.31] Diagnosis: Encounter for immunization[ICD10: Z23] Kirstie Bosch MD, [facility] CPT-4: 35083 11/25/2016 [id number] EST. PATIENT, LEVEL III Diagnosis: Cough[ICD10: R05] Diagnosis: Gastro-esophageal reflux disease without esophagitis[ICD10: K21.9] Diamond Bosch MD, [facility] CPT-4: 95200 11/12/2016 [id number]) 81578 EST. PATIENT, LEVEL IV Diagnosis: Type 2 diabetes mellitus without complications[ICD10: E11.9] Diagnosis: Essential (primary) hypertension[ICD10: I10] Diagnosis: Mixed hyperlipidemia[ICD10: E78.2] Kirstie Bosch MD, [facility] CPT-4: 78617 05/27/2016 [id number] EST. PATIENT, LEVEL IV Diagnosis: Essential (primary) hypertension[ICD10: I10] Diagnosis: Type 2 diabetes mellitus without complications[ICD10: E11.9] Diamond Bosch MD , [facility] CPT-4: 84068 05/05/2016 ([id number]) 70876 EST. PATIENT, LEVEL IV Diagnosis: Type 2 diabetes mellitus without complications[ICD10: E11.9] Diagnosis: Essential (primary) hypertension[ICD10: I10] Diagnosis: Age-related osteoporosis without current pathological fracture[ICD10 : M81.0] Diagnosis: Encounter for screening mammogram for malignant neoplasm of breast[ ICD10: Z12.31] Diagnosis: VACCIN FOR INFLUENZA[ICD10: Z23] Kirstie Bosch MD, [facility] CPT-4: 69488 11/12/2015 ([id number]) [id number] EST. PATIENT, LEVEL IV Diagnosis: Essential (primary) hypertension[ICD10: I10] Diagnosis: Pain in left finger(s)[ICD10: M79.645] Diagnosis: Other seborrheic keratosis[ICD10: L82.1] Kirstie Bosch MD, [facility] CPT-4: 37160 07/10/2015 ([id number]) 24835 EST. PATIENT, LEVEL IV Diagnosis: Essential (primary) hypertension[ICD10: I10] Diagnosis: Type 2 diabetes mellitus without complications[ICD10: E11.9] Diagnosis: Cough[ICD10: R05] Kirstie Bosch MD, [facility] CPT-4: 17504 04/10/2015 [id number] EST. PATIENT, LEVEL IV Diagnosis: Other acute nonsuppurative otitis media, left ear[ICD10: H65.192] Diagnosis: Acute recurrent maxillary sinusitis[ICD10: J01.01] Diagnosis: Other allergic rhinitis[ICD10: J30.89] Diamond Bosch MD, [facility] CPT-4: 60784 03/18/2015 [id number]) 12221 EST. PATIENT, LEVEL IV Diagnosis: Essential (primary) hypertension[ICD10: I10] Diagnosis: Age-related osteoporosis without current pathological fracture[ICD10 : M81.0] Diagnosis: Type 2 diabetes mellitus without complications[ICD10: E11.9] Diagnosis: Dermatitis, unspecified[ICD10: L30.9] Diagnosis: Atopic dermatitis, unspecified[ICD10: L20.9] Kirstie Bosch MD, [facility] CPT-4: 27807 03/06/2015 ([id number]) 08632 EST. PATIENT, LEVEL III Diagnosis: Essential (primary) hypertension[ICD10: I10] Diagnosis: Other seborrheic keratosis[ICD10: L82.1] Yoly Bosch MD, [facility] CPT-4: 08517 12/12/2014 ([id number]) 02608 EST. PATIENT, LEVEL IV Diagnosis: Other specified diabetes mellitus without complications[ICD10: E13.9] Diagnosis: Essential (primary) hypertension[ICD10: I10] Diagnosis: Dermatitis, unspecified[ICD10: L30.9] Diagnosis: Encounter for immunization[ICD10: Z23] Kirstie Bosch MD [facility] CPT-4: 18965 11/19/2014 ([id number]) 08528 EST. PATIENT, LEVEL III Diagnosis: Rash[ICD9: 782.1] Yoly Bosch MD, [facility] CPT-4: 64049 08/16/2014 ([id number]) OFFICE VISIT, NEW - LEVEL 3 Diagnosis: ESSENTIAL HYPERTENSION[ICD9: 401.9] Diagnosis: DIABETES TYPE II[ICD9: 250.00] Diagnosis: Rash[ICD9: 782.1] Yoly Bosch MD, [facility] CPT-4: 75658 08/05/2014 Plan of Care Planned Activity Notes Codes Status Date Appointment: Serafin Diamond WPtel: [address] [place], [place] [id number] ([address]) [facility] 03/11/2017 Visit Plan: Hypertension - well controlled [...] antibiotic therapy. 01/05/2017 App[facility]ment[phone] [id number] ([facility] min) Moderate 01/05/2017 Patient Education: Patient Medication Summary Completed 01/05/2017 Patient Education: Hypertension Completed 01/05/2017 App[facility]ment[phone] [id number] ([facility] min) Moderate 12/27/2016 Visit Plan: Hypertension [...] today 11/25/2016 App[id number] [place] (15 min) Moderate 11/25/2016 Patient [...] not improving. 11/12/2016 App[facility]ment[id number] ([facility] min) Complex 11/12/2016 Patient Education: Patient [...] to medications. 05/27/2016 App[facility]ment[id number] ([facility] min) Moderate 05/27/2016 Patient Education: Patient [...] functioning. 05/05/2016 Appointment: Diamond Betancourt WPtel: [phone] [facility] [place] (30 min) Complex 05/05/2016 Patient Education: Patient Medication Summary Completed 05/05/2016 Patient Education: Hypertension Completed 05/05/2016 Appointment: Kirstie Bosch WPtel: [phone] [facility] [place] (30 min) Complex 04/15/2016 Appointment: Kirstie Bosch WPtel: [phone] [facility] [place] (15 min) Moderate 03/17/2016 App[facility]ment: [phone] [id number] [place] ([facility] min) Moderate 11/13/2015 Visit Plan: [...] care surrogate. 10/16/2015 Appointment: Diamond Betancourt WPtel: [id number] [facility] [place] - Annual Wellness Visit 10/16/2015 Patient Education: [...] topical anti-inflammatory. 07/10/2015 Appointment[phone] (15 min) Moderate 07/10/2015 Patient Education: Patient [...] the office. 04/10/2015 Appointment: [facility] (15 min) Moderate 04/10/2015 Patient Education: Patient [...] with betamethasone 03/06/2015 Appointment: Kirstie Bosch WPtel: [phone] [facility] (15 min) Moderate 03/06/2015 Patient Education: Patient Medication Summary Completed 03/06/2015 Patient Education: Hypertension Completed 03/06/2015 Appointment: Kirstie Bosch WPtel: 1010 [facility] [place] (15 min) Moderate 02/19/2015 Appointment: Kirstie Bosch WPtel: [phone] [facility] (15 min) Moderate 02/10/2015 Visit Plan: Hypertension - well controlled - continue with current medications, continue with no added salt diet. Pt has been encouraged to exercise daily. The pt has been advised to call the office if there are any acute concerns about change in blood pressure readings at home. Seborrheic fixwqtjfx-hmgugjt-cc treatment indicated at this time but instructed [...] clinic today 11/19/2014 Appointment: Kirstie Bosch WPtel[facility] (15 min) Moderate 11/19/2014 Patient Education: Patient [...] in blood pressure readings at home. Seborrheic ljwpuewvj-gothhqf-lg treatment indicated at this time but instructed [...]
--- NOTE | 2017-08-23 21:16 | ED Head Injury ---
General Stated Complaint: FALL;HEAD INJ Source: patient Exam Limitations: no limitations History of Present Illness Date Seen by Provider: Aug 23, 2017 Time Seen by Provider: 21:00 Initial Comments Patient is a 71-year-old female who is brought into the emergency room by a friend for right side of the forehead laceration and right cheek laceration after tripping over a manhole this evening while on a walk. She denies neck pain , LOC, dizziness, lightheadedness. She also reports right hand pain and right knee pain from the fall. Occurred: just prior to arrival Severity: moderate Location: frontal Method of Injury: fell Loss of Consciousness: no loss of consciousness Associated Systoms: Denies Symptoms Allergies and Home Medications Allergies Coded Allergies: No Known Drug Allergies (Unverified , 03/05/14) Home Medications Hydrocodone Bit/Acetaminophen 1 Each Tablet, 0.5-1 EA PO Q6H PRN for MILD PAIN Prescribed by: ERI REYES on 05/25/13 1449 Hydrocodone Bit/Acetaminophen 1 Tab Tab, 1 EACH PO Q6H PRN for PAIN Prescribed by: JASS GONZALEZ on 08/23/17 2234 Patient Home Medication List Home Medication List Reviewed: Yes Review of Systems Constitutional: see HPI; No chills, No diaphoresis Eyes: See HPI; Denies Blindness, Denies Blurred Vision; Drainage Ears, Nose, Mouth, Throat: see HPI; denies ear pain, denies ear discharge Respiratory: see HPI; No cough, No dyspnea on exertion Cardiovascular: see HPI; No chest pain Gastrointestinal: see HPI; No abdominal pain, No constipation Genitourinary: see HPI; No decreased output, No discharge Musculoskeletal: see HPI, joint pain (right hand and right knee.) Skin: other (laceration to the right side of the face, bruising to the right side of the face, and abrasion to the right side of the face and right knee.) Psychiatric/Neurological: See HPI; Denies Anxiety, Denies Depressed Endocrine: See HPI; Denies Excessive Sweating, Denies Flushing Hematologic/Lymphatic: See HPI; Denies Anemia, Denies Blood Clots All Other Systems Reviewed Negative Unless Noted: Yes Past Kqucsif-Bgliwn-Rbnkfc Hx Past Med/Social Hx: Reviewed Nursing Past Med/Soc Hx Patient Social History Recent Foreign Travel: No Contact w/Someone Who Travel: No Past Medical History Reproductive Disorders: No Diabetes, Non-Insulin dep Family Medical History Reviewed Nursing Family Hx Physical Exam Vital Signs Vital Signs - First Documented Capillary Refill : Height, Weight, BMI Height: 5'4.00" Weight: 142lbs. oz. 64.813636xc; BMI Method:Stated General Appearance: WD/WN, no apparent distress HEENT: PERRL/EOMI, normal ENT inspection, TMs normal, pharynx normal Neck: non-tender, full range of motion, supple, normal inspection Cardiovascular: regular rate, rhythm, no edema, no gallop, no JVD, no murmur Respiratory: chest non-tender, lungs clear, normal breath sounds, no respiratory distress, no accessory muscle use Gastrointestinal: normal bowel sounds, non tender, soft, no organomegaly, no pulsatile mass Back: normal inspection, no CVA tenderness, no vertebral tenderness Extremities: normal range of motion, non-tender, normal inspection, no pedal edema, no calf tenderness, normal capillary refill Psychiatric: alert, oriented x 3 Crainal Nerves: normal hearing, normal speech, PERRL Coordination/Gait: normal finger to nose, normal gait Motor/Sensory: no motor deficit, no sensory deficit, no pronator drift Skin: normal color, warm/dry, other (see imaging.) [place] Coma Score Best Eye Response: (4) Open Spontaneously Best Verbal Response: (5) Oriented Best Motor Response: (6) Obeys Commands [place] Total: 15 Procedures/Interventions Wound Location: Face Other Wound Location Right cheek just below the right eye. Wound Length (cm): 1.5 Wound's Depth, Shape: superficial Wound Explored: clean Irrigated w/ Saline (ccs): 50 Volume Anesthetic (ccs): 2 Wound Debrided: minimal Suture: Prolene Suture Size: 5-0 Number of Sutures: 3 Progress The area was anesthetized with 1% lidocaine without epinephrine 2ml. The area was cleaned and irrigated with normal saline and Betasept approximately 50 mL. The laceration was closed with 3 simple interrupted sutures of 5-0 Prolene. Progress/Results/Core Measures Results/Orders My Orders Medications Given in ED Vital Signs/I&O Progress Progress Note : Progress Note Patient agrees to follow-up with ortho [facility] and PCP with return precautions. She was also informed of findings of thyroid nodule on CT. Report will be sent to Dr. Bosch. Diagnostic Imaging Diagonstic Imaging: Xray, CT Plain Films/CT/US/NM/MRI: facial bones, hand, c-spine, knee, head Comments NAME: LUCI CABRERA [facility] REC#: [id number] PT STATUS: REG ER : 1945 PHYSICIAN: JASS GONZALEZ ADMIT DATE: 08/23/17/ER Draft Date of Exam:08/23/17 CT HEAD/FACE/CERVICAL WO Clinical indication: Patient tripped and fell landing on the right side of her head. Patient has laceration in the right orbit area. Exam: Axial Head CT without IV contrast. Axial Maxillofacial CT scan without IV contrast with sagittal and coronal reformations. Axial CT scan of the cervical spine with sagittal and coronal reformations. Comparison: MRI of the cervical spine dated 10/28/2011. Findings: Head CT: There is no evidence of acute cerebral infarct, intracranial hemorrhage, or gross mass effect. The brain parenchymal volume appears appropriate for patient's age. There are multiple focal, and patchy areas of low-attenuation white matter changes seen throughout both cerebral hemispheres, suspected to represent chronic small vessel ischemic disease. There is normal tuttle-white matter distinction. There is no significant midline shift or herniation. There is no evidence of hydrocephalus. The basal cisterns are unremarkable. Maxillofacial CT: There is minimal widening and displacement of the left nasomaxillary suture which may be from prior trauma of unknown age. There is also slight flattened appearance of the nasal bone anteriorly which may be chronic. Otherwise, there is no skull or maxillofacial fracture. There is a moderate-sized area of extracranial soft tissue swelling/hematoma with associated scalp laceration in the right frontal/right periorbital region. Globes are intact. The skull, extracranial soft tissue, and orbits are otherwise unremarkable. The paranasal sinuses are unremarkable. Temporal bones show no significant abnormality. Cervical spine: There is no acute cervical spine fracture. There is grade 1 anterolisthesis of C3 on C4 with no pars defect seen and likely degenerative. There are small degenerative spurs and facet arthropathy involving the cervical spine. There is severe facet arthropathy involving the left C3-C4 level. Is no significant bony central canal narrowing. The thyroid gland is heterogeneous including a roughly 15 mm low density right thyroid gland nodule. The remainder of the neck soft tissue structures are unremarkable. Visualized upper lung easley are clear. Impression: 1: There is no evidence of intracranial hemorrhage. There is minimal displacement of the left nasomaxillary suture region which may be chronic. Clinical correlation for pain in this region would better evaluate. 2: There is a moderate-sized area of extracranial soft tissue swelling, hematoma, and scalp laceration in the right frontal/right periorbital region. There is no skull or maxillofacial fracture in the region. The right orbit and globes are intact. 3: Chronic small vessel ischemic disease. 4: There is no evidence of acute cervical spine fracture. 5: Cervical spine degenerative disease including grade 1 anterolisthesis of C3 on C4. 6: Heterogeneous thyroid gland with a roughly 15 mm right thyroid gland nodule. Nonemergent thyroid ultrasound would better evaluate. Dictated on workstation # [id number] Dict: 08/23/172123 Trans: 08/23/172142 [facility] [id number] Interpreted by: SHANNAN GUPTA MD Electronically signed by: [place], [place] NAME: LUCI CABRERA Shashi [facility] REC#: [id number] PT STATUS: REG ER : 1945 PHYSICIAN: JASS GONZALEZ ADMIT DATE: 08/23/17/ER Draft Date of Exam:08/23/17 HAND, RIGHT, 3 VIEWS Clinical indication: Patient with right hand pain after a fall. Patient has pain and swelling in the metacarpal area. Exam: X-ray of the right hand, 3 views. Comparison: X-ray of the right wrist, dated 10/25/2007. Findings: There is progression of osteopenia. There are acute fractures with mild impaction and mild displacement dorsally seen involving the proximal metaphysis of the third and fifth proximal phalanges. There is a curvilinear lucency involving the proximal metaphysis of the fourth proximal phalanx and a nondisplaced fracture cannot be completely excluded. There is no other concern for fracture or dislocation seen on this exam. Stable chronic calcification is seen distal to the ulnar styloid region. There is severely hypertrophic spurs with central erosions involving the second through fifth DIP joints. There are also other areas of spurs throughout the PIP joints, first MCP joint, and first CMC joint. Impression: 1: There is acute mildly impacted fractures involving the proximal metaphysis of the third and fifth proximal phalanges. 2: Possible nondisplaced fracture involving the proximal metaphysis of the fourth proximal phalanx. 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 Patient has laceration noted to knee. Exam: X-ray of the right knee, 3 views. Comparison: None. Findings: There is no knee effusion. There is no acute fracture or dislocation. There is mild patellar spurring at the quadriceps attachment. Impression: There is no acute fracture or dislocation. Dictated on workstation # [id number] Dict: 08/23/172122 Trans: 08/23/172128 [facility] [id number] Interpreted by: SHANNAN GUPTA MD Electronically signed by: Departure Impression Primary Impression: Abrasion Additional Impressions: Laceration Finger fracture, right Head injury Qualified Codes: S09.90XA - Unspecified injury of head, initial encounter Fall from standing Qualified Codes: W19.XXXA - Unspecified fall, initial encounter Disposition: 01 HOME, SELF-CARE Condition: Stable/Unchanged Departure-Patient Inst. Decision time for Depature: 22:37 Referrals: MERRITT BOSCH MD (PCP/Family) Primary Care Physician LALO NUR DO Patient Instructions: Laceration Repair With Stitches (DC), Minor Head Injury ( DC) Add. Discharge Instructions: Take medications as directed. Return back to the emergency room in 5 days to have the sutures removed. Follow-up with your doctor within 3 days for recheck. Call tomorrow morning to make an appointment time. Follow with an orthopedic surgeon of your choice. [id number] number has been provided to you. Return back to the emergency room for signs of infection such as increased pain, redness, drainage, fever. Also return back if you should develop nausea, vomiting, dizziness, increased headaches, or passing out. There was also a thyroid nodule that was noted on CT scan that they recommend a thyroid ultrasound and a non-emergent evaluation. Be sure this is related to Dr. Bosch for follow-up. Scripts Hydrocodone Bit/Acetaminophen (Hydrocodone/Acetaminophen 5/325mg Tablet) 1 Tab Tab 1 EACH PO Q6H PRN for PAIN, #14 TAB Prov: JASS GONZALEZ 08/23/17 Images Head/Face 1 - Abrasion, Ecchymosis 2 - Laceration 3 - Ecchymosis, Swelling Copy Copies To 1: MERRITT BOSCH MD, TRAVIS Aug 23, 2017 21:16
--- NOTE | 2017-08-23 21:29 | Diagnostic Imaging Report ---
Clinical indication: Patient status post fall with right knee pain. Patient has laceration noted to knee. Exam: X-ray of the right knee, 3 views. Comparison: None. Findings: There is no knee effusion. There is no acute fracture or dislocation. There is mild patellar spurring at the quadriceps attachment. Impression: There is no acute fracture or dislocation. Dictated by: Dictated on workstation # [id number]
[2017-08-23] MEDS ORDERED: LIDOCAINE 1% INJ 20 ML 20 ML VIAL INJ ONE (21:30)
[2017-08-23] MEDS ORDERED: TETANUS,DIPTH,PERTUSS P/F (BOOSTRIX) 0.5 ML VIAL IM ONE (21:30)
--- NOTE | 2017-08-23 21:30 | Diagnostic Imaging Report ---
Clinical indication: Patient with right hand pain after a fall. Patient has pain and swelling in the metacarpal area. Exam: X-ray of the right hand, 3 views. Comparison: X-ray of the right wrist, dated 10/25/2007. Findings: There is progression of osteopenia. There are acute fractures with mild impaction and mild displacement dorsally seen involving the proximal metaphysis of the third and fifth proximal phalanges. There is a curvilinear lucency involving the proximal metaphysis of the fourth proximal phalanx and a nondisplaced fracture cannot be completely excluded. There is no other concern for fracture or dislocation seen on this exam. Stable chronic calcification is seen distal to the ulnar styloid region. There is severely hypertrophic spurs with central erosions involving the second through fifth DIP joints. There are also other areas of spurs throughout the PIP joints, first MCP joint, and first CMC joint. Impression: 1: There is acute mildly impacted fractures involving the proximal metaphysis of the third and fifth proximal phalanges. 2: Possible nondisplaced fracture involving the proximal metaphysis of the fourth proximal phalanx. 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
--- NOTE | 2017-08-23 21:44 | Diagnostic Imaging Report ---
Clinical indication: Patient tripped and fell landing on the right side of her head. Patient has laceration in the right orbit area. Exam: Axial Head CT without IV contrast. Axial Maxillofacial CT scan without IV contrast with sagittal and coronal reformations. Axial CT scan of the cervical spine with sagittal and coronal reformations. Comparison: MRI of the cervical spine dated 10/28/2011. Findings: Head CT: There is no evidence of acute cerebral infarct, intracranial hemorrhage, or gross mass effect. The brain parenchymal volume appears appropriate for patient's age. There are multiple focal, and patchy areas of low-attenuation white matter changes seen throughout both cerebral hemispheres, suspected to represent chronic small vessel ischemic disease. There is normal tuttle-white matter distinction. There is no significant midline shift or herniation. There is no evidence of hydrocephalus. The basal cisterns are unremarkable. Maxillofacial CT: There is minimal widening and displacement of the left nasomaxillary suture which may be from prior trauma of unknown age. There is also slight flattened appearance of the nasal bone anteriorly which may be chronic. Otherwise, there is no skull or maxillofacial fracture. There is a moderate-sized area of extracranial soft tissue swelling/hematoma with associated scalp laceration in the right frontal/right periorbital region. Globes are intact. The skull, extracranial soft tissue, and orbits are otherwise unremarkable. The paranasal sinuses are unremarkable. Temporal bones show no significant abnormality. Cervical spine: There is no acute cervical spine fracture. There is grade 1 anterolisthesis of C3 on C4 with no pars defect seen and likely degenerative. There are small degenerative spurs and facet arthropathy involving the cervical spine. There is severe facet arthropathy involving the left C3-C4 level. Is no significant bony central canal narrowing. The thyroid gland is heterogeneous including a roughly 15 mm low density right thyroid gland nodule. The remainder of the neck soft tissue structures are unremarkable. Visualized upper lung easley are clear. Impression: 1: There is no evidence of intracranial hemorrhage. There is minimal displacement of the left nasomaxillary suture region which may be chronic. Clinical correlation for pain in this region would better evaluate. 2: There is a moderate-sized area of extracranial soft tissue swelling, hematoma, and scalp laceration in the right frontal/right periorbital region. There is no skull or maxillofacial fracture in the region. The right orbit and globes are intact. 3: Chronic small vessel ischemic disease. 4: There is no evidence of acute cervical spine fracture. 5: Cervical spine degenerative disease including grade 1 anterolisthesis of C3 on C4. 6: Heterogeneous thyroid gland with a roughly 15 mm right thyroid gland nodule. Nonemergent thyroid ultrasound would better evaluate. Dictated by: Dictated on workstation # [id number]
[2017-08-23] MEDS ORDERED: ACHD5005 PO (22:34)
[2017-08-23 22:49] VITALS: BP 179/85
== END 2017-08-23 22:49 | disposition home or self-care (01) ==
LOC: EDUNIT# 20:42 → ER 20:44
DX: S09.90XA Unspecified injury of head, initial encounter (principal); S62.612A Displaced fracture of proximal phalanx of right middle finger, initial encounter for closed fracture; S62.616A Displaced fracture of proximal phalanx of right little finger, initial encounter for closed fracture; S01.411A Laceration without foreign body of right cheek and temporomandibular area, initial encounter; S80.211A Abrasion, right knee, initial encounter; E11.9 Type 2 diabetes mellitus without complications; W17.1XXA Fall into storm drain or manhole, initial encounter; Y93.01 Activity, walking, marching and hiking
CPT/HCPCS: 12011; 29125; 70450; 70486; 72125; 73130; 73562; 90471; 90715

== ENCOUNTER → 2017-09-14 | Outpatient (CLI) | payer MEDICARE ==
[~2017-09-14] MED LIST changes: +ACHD5005 PO
--- NOTE | 2017-09-14 16:00 | Diagnostic Imaging Report ---
PROCEDURE: US Thyroid. TECHNIQUE: Multiple real-time grayscale images were obtained of the thyroid in various projections. INDICATION: Right thyroid nodule. COMPARISON: No prior studies are available for comparison. FINDINGS: The right lobe of the thyroid measures 3.4 x 1.2 x 1.6 cm and the left lobe measures 3.8 x 1.2 x 1.4 cm. Multiple bilateral thyroid nodules are present. Majority of nodules are subcentimeter in size. Nodules on the left measure 4 and 5 mm. Nodule upper pole right is approximately 9 mm. The largest nodule is in the mid to lower aspect of the right lobe measuring 1.2 x 0.9 x 1.3 cm. No microcalcifications are seen. IMPRESSION: Bilateral thyroid nodules, as described. Followup ultrasound in six months could be performed to confirm stability. Dictated by: Dictated on workstation # [id number]
== END ==
LOC: RAD 14:42
PROVIDERS: ATTEND Nurse Practitioner Family
DX: E04.2 Nontoxic multinodular goiter (principal)
CPT/HCPCS: 76536

== ENCOUNTER → 2018-02-22 | Outpatient (CLI) | payer MEDICARE ==
--- NOTE | 2018-02-22 19:16 | Diagnostic Imaging Report ---
INDICATION: Routine screening. Comparison is made with prior mammogram from 12/13/2016 and 11/26/2015. 2-D and 3-D bilateral screening mammography was performed with a Computer Aided Detection (CAD) system. FINDINGS: Both breasts are heterogeneously dense, limiting the sensitivity of mammography. The parenchymal pattern is stable. No mass or malignant appearing microcalcifications are seen. There are benign parenchymal and vascular calcifications bilaterally. The axillae are unremarkable. IMPRESSION: No mammographic features suspicious for malignancy are identified. ACR BI-RADS Category 2: Benign findings. Result letter will be mailed to the patient. Note: At least 10% of breast cancer is not imaged by mammography. Dictated by: Dictated on workstation # [id number]
== END ==
LOC: RAD 14:53
PROVIDERS: ATTEND Family Medicine
DX: Z12.31 Encounter for screening mammogram for malignant neoplasm of breast (principal)
CPT/HCPCS: 77067

== ENCOUNTER → 2018-04-14 | Outpatient (CLI) | payer MEDICARE ==
--- NOTE | 2018-04-14 16:21 | Diagnostic Imaging Report ---
PROCEDURE: US Thyroid. TECHNIQUE: Multiple real-time grayscale images were obtained of the thyroid in various projections. INDICATION: Thyroid nodules, followup. COMPARISON: Correlation is made with prior exam from 09/14/2017. FINDINGS: The right lobe of the thyroid measures 3.4 x 1.3 x 1.8 cm and the left lobe measures 3.5 x 1.6 x 1.4 cm. Subcentimeter nodules left lobe are again noted measuring 3-5 mm in size. Nodules on the right are again noted, largest measuring approximately 1.2 x 1.1 cm, stable. Isthmus is 3 mm in thickness. No new thyroid mass is detected. IMPRESSION: Stable bilateral thyroid nodules when compared with examination from 09/14/2017. Continued followup to confirm stability could be performed. Dictated by: Dictated on workstation # [id number]
== END ==
LOC: RAD 14:20
PROVIDERS: ATTEND Nurse Practitioner Family
DX: E04.2 Nontoxic multinodular goiter (principal)
CPT/HCPCS: 76536

== ENCOUNTER → 2018-06-15 | Outpatient (CLI) | payer MEDICARE ==
--- NOTE | 2018-06-15 16:46 | Diagnostic Imaging Report ---
INDICATION: Right leg swelling, pain. TECHNIQUE: Grayscale with color-flow and Doppler waveform evaluation of the right lower extremity deep venous system. CORRELATION STUDY: None FINDINGS: Color and grayscale sonographic images demonstrate no intraluminal defect within the visualized portion of the common femoral, superficial femoral and/or popliteal veins to suggest thrombus formation. These vessels demonstrate normal response to compression and augmentation. No soft tissue fluid collection. IMPRESSION: 1. Negative for deep venous thrombosis of the right leg. Dictated by: Dictated on workstation # [id number]
== END ==
LOC: RAD 16:04
PROVIDERS: ATTEND Nurse Practitioner Family
DX: M79.89 Other specified soft tissue disorders (principal)

== ENCOUNTER → 2018-08-09 | Outpatient (CLI) | payer MEDICARE ==
--- NOTE | 2018-08-09 12:06 | Diagnostic Imaging Report ---
Indication: Right upper quadrant pain KUB 11:25 AM Gallbladder is surgically absent. Lung bases are clear. Bowel gas pattern is normal. Impression: Postop changes from cholecystectomy. No acute abnormality seen. Dictated by: Dictated on workstation # [id number]
== END ==
LOC: RAD 11:09
PROVIDERS: ATTEND Nurse Practitioner Family
DX: R10.11 Right upper quadrant pain (principal); Z90.49 Acquired absence of other specified parts of digestive tract
CPT/HCPCS: 74018

== ENCOUNTER 2018-08-17 20:46 | Emergency (ER) | payer MEDICARE ==
[~2018-08-17] VITALS: Ht 160 cm; Wt 61.2 kg
[~2018-08-17 20:46] MED LIST changes: -ACYCLOVIR 400 MG; -ASPIRIN 81 MG; -ATORVASTATIN 80 MG; -BASAGLAR U; -CALC0.257; -CHLORTHALIDONE 50 MG; -CHOL400T40; -CLOB59LO3; -CLOPIDOGREL 75MG TABLETS; -CYAN500T2; -FERR325C; -HYDRALAZINE 25 MG; -MELA5TAB; -MEMANTINE 10 MG; -OXYC1TAB16 PO; -PANTOPRAZOLE 40MG TABLETS; -POT CHLORIDE 10 MEQ; -SERTRALINE 50MG TABLETS; -TRAMADOL 50MG TABLETS; -VIT C; -[UNRECOGNIZED DRUG - OTHER]
[2018-08-17] MEDS ORDERED: oxyCODONE/APAP 5/325MG (PERCOCET 5) TABLET PO ONE (21:00)
--- NOTE | 2018-08-17 21:00 | ED Back Pain ---
General Chief Complaint: Back Problems Stated Complaint: BACK PAIN Source of Information: Patient Exam Limitations: No Limitations History of Present Illness Date Seen by Provider: Aug 17, 2018 Time Seen by Provider: 20:58 Initial Comments To ER with reports of midline low back pain that radiates all across her low back. She awakened with this pain about 3 weeks ago as a mild pain and it has gotten progressively worse. She is on tramadol for this, last dose at 5 PM with no improvement. Currently rates her pain at 10 out of 10. Movement worsens the pain. She denies fevers or chills, denies loss of bowel or bladder control, the pain does not radiate down either of her legs. No falls or preceding trauma. She had an outpatient CT today for this. Location: Lumbar Spine, Paraspinous Muscles Timing/Duration: 1-2 Days Severity: Moderate Pain/Injury Location: Back Method of Injury: Unknown Associated Symptoms: lower back pain Allergies and Home Medications Allergies Coded Allergies: No Known Drug Allergies (Unverified , 08/17/18) Patient Home Medication List Home Medication List Reviewed: Yes Review of Systems Constitutional: see HPI; No chills, No fever EENTM: see HPI Respiratory: no symptoms reported Cardiovascular: no symptoms reported Genitourinary: no symptoms reported Musculoskeletal: see HPI, back pain Skin: no symptoms reported Psychiatric/Neurological: No Symptoms Reported Past Jrusznu-Rnpcja-Lzmcbh Hx Patient Social History Recent Foreign Travel: No Contact w/Someone Who Travel: No Recent Hopitalizations: No Immunizations Up To Date Tetanus Booster (TDap): Less than 5yrs Seasonal Allergies Seasonal Allergies: No Past Medical History Surgeries: Yes Respiratory: No Cardiac: Yes High Cholesterol, Hypertension Neurological: No Reproductive Disorders: No Gastrointestinal: Yes Gastroesophageal Reflux Musculoskeletal: No Endocrine: Yes Diabetes, Non-Insulin dep HEENT: Yes (current eye infection on Acyclovin) Cancer: No Psychosocial: Yes Depression Integumentary: No Blood Disorders: No Physical Exam Vital Signs Vital Signs - First Documented 08/17/18 20:50 Temp 100.2 Pulse 77 Resp 16 B/P (MAP) 175/80 (111) Pulse Ox 94 Capillary Refill : Height, Weight, BMI Height: 5'4.00" Weight: 130lbs. oz. 58.556650vc; BMI Method:Stated General Appearance: No Apparent Distress, WD/WN Neck: Full Range of Motion, Normal Inspection Respiratory: Normal Breath Sounds, No Accessory Muscle Use, No Respiratory Distress Gastrointestinal: Normal Bowel Sounds, Non Tender, Soft; No Tenderness Back: Normal Inspection; No Vertebral Tenderness Extremity: Normal Capillary Refill, Normal Inspection Neurologic/Psychiatric: Alert, Oriented x3 Skin: Normal Color, Warm/Dry Procedures/Interventions Suture Size: 5-0 Progress/Results/Core Measures Results/Orders Lab Results Laboratory Tests Test 08/17/18 20:59 08/17/18 21:10 Range/Units White Blood Count 9.7 4.3-11.0 10^3/uL Red Blood Count 3.53 L 4.35-5.85 10^6/uL Hemoglobin 9.6 L 11.5-16.0 G/DL Hematocrit 31 L 35-52 % Mean Corpuscular Volume 87 80-99 FL Mean Corpuscular Hemoglobin 27 25-34 PG Mean Corpuscular Hemoglobin Concent 31 L 32-36 G/DL Red Cell Distribution Width 14.1 10.0-14.5 % Platelet Count 226 130-400 10^3/uL Mean Platelet Volume 9.8 7.4-10.4 FL Neutrophils (%) (Auto) 70 42-75 % Lymphocytes (%) (Auto) 16 12-44 % Monocytes (%) (Auto) 13 H 0-12 % Eosinophils (%) (Auto) 1 0-10 % Basophils (%) (Auto) 0 0-10 % Neutrophils # (Auto) 6.8 1.8-7.8 X 10^3 Lymphocytes # (Auto) 1.5 1.0-4.0 X 10^3 Monocytes # (Auto) 1.3 H 0.0-1.0 X 10^3 Eosinophils # (Auto) 0.1 0.0-0.3 10^3/uL Basophils # (Auto) 0.0 0.0-0.1 10^3/uL Erythrocyte Sedimentation Rate 31 H 0-30 MM/HR Sodium Level 140 135-145 MMOL/L Potassium Level 3.7 3.6-5.0 MMOL/L Chloride Level 105 98-107 MMOL/L Carbon Dioxide Level 25 21-32 MMOL/L Anion Gap 10 5-14 MMOL/L Blood Urea Nitrogen 27 H 7-18 MG/DL Creatinine 1.69 H 0.60-1.30 MG/DL Estimat Glomerular Filtration Rate 30 BUN/Creatinine Ratio 16 Glucose Level 124 H 70-105 MG/DL Calcium Level 9.0 8.5-10.1 MG/DL Urine Color YELLOW Urine Clarity CLEAR Urine pH 6.5 5-9 Urine Specific [place] 1.010 L 1.016-1.022 Urine Protein NEGATIVE NEGATIVE Urine Glucose (UA) NEGATIVE NEGATIVE Urine Ketones NEGATIVE NEGATIVE Urine Nitrite NEGATIVE NEGATIVE Urine Bilirubin NEGATIVE NEGATIVE Urine Urobilinogen NORMAL NORMAL MG/DL Urine Leukocyte Esterase 1+ H NEGATIVE Urine RBC (Auto) NEGATIVE NEGATIVE Urine RBC NONE /HPF Urine WBC RARE /HPF Urine Squamous Epithelial Cells RARE /HPF Urine Crystals NONE /LPF Urine Bacteria NEGATIVE /HPF Urine Casts NONE /LPF Urine Mucus NEGATIVE /LPF Urine Culture Indicated NO My Orders Orders - ERI REYES APRN Erythrocyte Sedimentation Rate (08/17/18 20:57) Cbc With Automated Diff (08/17/18 20:57) Ed Iv/Invasive Line Start (08/17/18 20:57) Oxycodone/Apap 5/325mg Tablet (Percocet (08/17/18 21:00) Ua Culture If Indicated (08/17/18 21:01) Basic Metabolic Panel (08/17/18 21:14) Rx-Oxycodone/Apap 5-325 Mg (Rx-Percocet (08/17/18 22:00) Medications Given in ED Current Medications Medications Dose Ordered Sig/Emma Route Start Time Stop Time Status Last Admin Dose Admin Oxycodone/ Acetaminophen 1 tab ONCE ONCE PO 08/17/18 21:00 08/17/18 21:01 DC 08/17/18 21:03 1 TAB Vital Signs/I&O 08/17/18 20:50 Temp 100.2 Pulse 77 Resp 16 B/P (MAP) 175/80 (111) Pulse Ox 94 Departure Communication (Admissions) Her pain at rest laying in bed on arrival was 10 out of 10. Currently after one 5 mg Percocet her pain is 5 out of 10. I will stop the tramadol, change to Percocet, discharge to home follow up with primary care. Impression Primary Impression: Back pain Qualified Codes: M54.5 - Low back pain Disposition: 01 HOME, SELF-CARE Condition: Stable Departure-Patient Inst. Decision time for Depature: 21:51 Referrals: MERRITT VELÁSQUEZ MD (PCP/Family) Primary Care Physician Patient Instructions: Low Back Pain (DC) Add. Discharge Instructions: Return to ER for any concerns. Stop the tramadol, replaced with Percocet one tablet every 4-6 hours as needed for pain. All discharge instructions reviewed with patient and/or family. Voiced understanding. Scripts Oxycodone HCl/Acetaminophen (Percocet 7.5-325 mg Tablet) 1 Each Tablet 1 TAB PO Q6H PRN for PAIN-MODERATE MDD 4 TABS for 7 Days, #14 TAB Prov: ERI REYES APRN 08/17/18 ERI REYES APRN Aug 17, 2018 21:00
[2018-08-17 21:07] LABS: BASOPHILS % (AUTO) 0 % (0-10); EOSINOPHILS # (AUTO) 0.1 10^3/uL (0.0-0.3); EOSINOPHILS % (AUTO) 1 % (0-10); HEMATOCRIT 31 % (35-52); HEMOGLOBIN 9.6 G/DL (11.5-16.0); LYMPHOCYTES # (AUTO) 1.5 X 10^3 (1.0-4.0); LYMPHOCYTES % (AUTO) 16 % (12-44); MEAN CORPUSCULAR HEMOGLOBIN 27 PG (25-34); MEAN CORPUSCULAR HGB CONC 31 G/DL (32-36); MEAN CORPUSCULAR VOLUME 87 FL (80-99); MEAN PLATELET VOLUME 9.8 FL (7.4-10.4); MONOCYTES # (AUTO) 1.3 X 10^3 (0.0-1.0); MONOCYTES % (AUTO) 13 % (0-12); NEUTROPHILS # (AUTO) 6.8 X 10^3 (1.8-7.8); NEUTROPHILS % (AUTO) 70 % (42-75); PLATELET COUNT 226 10^3/uL (130-400); RED CELL DISTRIBUTION WIDTH 14.1 % (10.0-14.5); WHITE BLOOD COUNT 9.7 10^3/uL (4.3-11.0)
[2018-08-17 21:21] LABS: BILIRUBIN,URINE NEGATIVE (NEGATIVE); CLARITY,URINE CLEAR; COLOR,URINE YELLOW; GLUCOSE, URINE (UA) NEGATIVE (NEGATIVE); KETONES,URINE NEGATIVE (NEGATIVE); LEUKOCYTE ESTERASE ,URINE 1+ (NEGATIVE); NITRITE,URINE NEGATIVE (NEGATIVE); PH,URINE 6.5 (5-9); PROTEIN,URINE NEGATIVE (NEGATIVE); UROBILINOGEN,URINE NORMAL (NORMAL)
[2018-08-17 21:31] LABS: CREATININE SERUM 1.69 MG/DL (0.60-1.30); POTASSIUM 3.7 MMOL/L (3.6-5.0)
[2018-08-17 21:32] LABS: BACTERIA,URINE NEGATIVE /HPF; SQUAMOUS EPITHELIAL CELL,UR RARE /HPF; WBC,URINE RARE /HPF
[2018-08-17 21:33] LABS: ERYTHROCYTE SEDIMENTATION RATE 31 MM/HR (0-30)
[2018-08-17] MEDS ORDERED: CHLORTHALIDONE 50 MG (21:34)
[2018-08-17] MEDS ORDERED: BASAGLAR U (21:34)
[2018-08-17] MEDS ORDERED: ATORVASTATIN 80 MG (21:34)
[2018-08-17] MEDS ORDERED: ASPIRIN 81 MG (21:34)
[2018-08-17] MEDS ORDERED: ACYCLOVIR 400 MG ×2 (21:34)
[2018-08-17] MEDS ORDERED: CLOPIDOGREL 75MG TABLETS (21:34)
[2018-08-17] MEDS ORDERED: MEMANTINE 10 MG (21:34)
[2018-08-17] MEDS ORDERED: TRAMADOL 50MG TABLETS (21:34)
[2018-08-17] MEDS ORDERED: PANTOPRAZOLE 40MG TABLETS (21:34)
[2018-08-17] MEDS ORDERED: HYDRALAZINE 25 MG (21:34)
[2018-08-17] MEDS ORDERED: POT CHLORIDE 10 MEQ (21:34)
[2018-08-17] MEDS ORDERED: SERTRALINE 50MG TABLETS (21:34)
[2018-08-17] MEDS ORDERED: [UNRECOGNIZED DRUG - OTHER] (21:34)
[2018-08-17] MEDS ORDERED: CHOL400T40 (21:40)
[2018-08-17] MEDS ORDERED: CYAN500T2 (21:40)
[2018-08-17] MEDS ORDERED: CLOB59LO3 (21:40)
[2018-08-17] MEDS ORDERED: VIT C (21:40)
[2018-08-17] MEDS ORDERED: CALC0.257 (21:40)
[2018-08-17] MEDS ORDERED: MELA5TAB (21:40)
[2018-08-17] MEDS ORDERED: FERR325C (21:40)
[2018-08-17] MEDS ORDERED: OXYC1TAB16 PO (21:53)
[2018-08-17] MEDS ORDERED: RX-OXYCODONE/APAP 5-325 MG #4 TAB PK PO PRN (22:00)
[2018-08-17 22:15] VITALS: BP 135/61
== END 2018-08-17 22:15 | disposition home or self-care (01) ==
LOC: EDUNIT# 20:46 → ER 20:48
DX: M54.5 Low back pain (principal); I10 Essential (primary) hypertension; E78.00 Pure hypercholesterolemia, unspecified; K21.9 Gastro-esophageal reflux disease without esophagitis; E11.9 Type 2 diabetes mellitus without complications; F32.9 Major depressive disorder, single episode, unspecified; X50.1XXA Overexertion from prolonged static or awkward postures, initial encounter
CPT/HCPCS: 36415; 80048; 81000; 85025; 85652

== ENCOUNTER → 2018-08-17 | Outpatient (CLI) | payer MEDICARE ==
[~2018-08-17] MED LIST changes: +ACYCLOVIR 400 MG; +ASPIRIN 81 MG; +ATORVASTATIN 80 MG; +BASAGLAR U; +CALC0.257; +CHLORTHALIDONE 50 MG; +CHOL400T40; +CLOB59LO3; +CLOPIDOGREL 75MG TABLETS; +CYAN500T2; +FERR325C; +HYDRALAZINE 25 MG; +MELA5TAB; +MEMANTINE 10 MG; +OXYC1TAB16 PO; +PANTOPRAZOLE 40MG TABLETS; +POT CHLORIDE 10 MEQ; +SERTRALINE 50MG TABLETS; +TRAMADOL 50MG TABLETS; +VIT C; +[UNRECOGNIZED DRUG - OTHER]
--- NOTE | 2018-08-17 15:21 | Diagnostic Imaging Report ---
PROCEDURE: CT abdomen and pelvis without contrast. TECHNIQUE: Multiple contiguous axial images were obtained through the abdomen and pelvis without the use of intravenous contrast. Auto Exposure Controls were utilized during the CT exam to meet ALARA standards for radiation dose reduction. INDICATION: Bilateral low back pain. COMPARISON: No prior studies are available for comparison. FINDINGS: The lung bases are clear. No discrete liver mass is seen. Gallbladder is surgically absent. No biliary duct dilatation is seen. The pancreas and spleen are unremarkable. No adrenal mass is detected. No renal calculi are seen. There is an extrarenal pelvis on the right. No ureteral calculi or hydronephrosis is seen. Aorta is calcified but nonaneurysmal. Small and large bowel loops are normal in caliber. There is no obstruction. There is no ascites. Uterus and bladder are unremarkable. The bony structures are nonacute. IMPRESSION: Unremarkable noncontrast CT of the abdomen and pelvis. No urinary tract calculi or obstruction is seen. Dictated by: Dictated on workstation # [id number]
== END ==
LOC: RAD 14:51
PROVIDERS: ATTEND Nurse Practitioner Family
DX: R10.9 Unspecified abdominal pain (principal); M54.5 Low back pain; Z90.49 Acquired absence of other specified parts of digestive tract
CPT/HCPCS: 74176

== ENCOUNTER → 2018-08-18 | Outpatient (CLI) | payer MEDICARE ==
[~2018-08-18] MED LIST changes: +ACYCLOVIR 400 MG; +ASPIRIN 81 MG; +ATORVASTATIN 80 MG; +BASAGLAR U; +CALC0.257; +CHLORTHALIDONE 50 MG; +CHOL400T40; +CLOB59LO3; +CLOPIDOGREL 75MG TABLETS; +CYAN500T2; +FERR325C; +HYDRALAZINE 25 MG; +MELA5TAB; +MEMANTINE 10 MG; +OXYC1TAB16 PO; +PANTOPRAZOLE 40MG TABLETS; +POT CHLORIDE 10 MEQ; +SERTRALINE 50MG TABLETS; +TRAMADOL 50MG TABLETS; +VIT C; +[UNRECOGNIZED DRUG - OTHER]
--- NOTE | 2018-08-18 16:59 | Diagnostic Imaging Report ---
Examination: Lumbar spine 2 or 3 views. History: Low back pain. Findings: No comparison available. Lumbar spine alignment is normal. There is a mild compression fracture of T12. Disc spaces are normal. Surgical clips in the right upper quadrant. Abdominal aorta is calcified. Impression: 1. Mild compression fracture of T12. Dictated by: Dictated on workstation # [id number]
== END ==
LOC: RAD 16:24
PROVIDERS: ATTEND Nurse Practitioner Family
DX: M48.54XA Collapsed vertebra, not elsewhere classified, thoracic region, initial encounter for fracture (principal); Z98.890 Other specified postprocedural states
CPT/HCPCS: 72100

== ENCOUNTER 2018-09-14 10:05 | Outpatient (CLI) | payer MEDICARE ==
[~2018-09-14] VITALS: Ht 160 cm; Wt 61.2 kg
[~2018-09-14 10:05] MED LIST changes: -CALC0.257; +CALC0.257 PO
[2018-09-15] MEDS ORDERED: MEMA10TA22 PO (15:06)
[2018-09-15] MEDS ORDERED: POTA10TA10 PO (15:06)
[2018-09-15] MEDS ORDERED: ASPI-999 PO (15:06)
[2018-09-15] MEDS ORDERED: CHOL400C9 PO (15:06)
[2018-09-15] MEDS ORDERED: PANT40TA3 PO (15:06)
[2018-09-15] MEDS ORDERED: MELA5TAB14 PO (15:06)
[2018-09-15] MEDS ORDERED: CLOB15CR2 TP (15:06)
[2018-09-15] MEDS ORDERED: CYAN500T62 PO (15:06)
[2018-09-15] MEDS ORDERED: VITA400C60 PO (15:06)
[2018-09-15] MEDS ORDERED: INSU100I34 SQ (15:06)
[2018-09-15] MEDS ORDERED: NITR0.4T39 SL (15:06)
[2018-09-15] MEDS ORDERED: ASCO-262 PO (15:06)
[2018-09-15] MEDS ORDERED: FERR325T18 PO (15:06)
[2018-09-15] MEDS ORDERED: SERT50TA9 PO (15:06)
[2018-09-15] MEDS ORDERED: ATOR80TA76 PO (15:06)
[2018-09-15] MEDS ORDERED: METO-370 PO (15:06)
[2018-09-15] MEDS ORDERED: ACYC400T PO (15:06)
[2018-09-15] MEDS ORDERED: TRAM50TA2 PO (15:09)
[2018-09-15] MEDS ORDERED: CLOP75TA69 PO (15:09)
[2018-09-15] MEDS ORDERED: CLON0.1T PO ×2 (15:09→17:05)
[2018-09-15] MEDS ORDERED: HYDR-3923 PO (15:09)
[2018-09-15] MEDS ORDERED: CHLO50TA2 PO (15:09)
[2018-09-15] MEDS ORDERED: HYDR-3820 PO (17:05)
[2018-09-15] MEDS ORDERED: HYDR12.56 PO (17:05)
[2018-09-15] MEDS ORDERED: FENT1PAT57 TD (17:05)
== END 2018-09-14 14:34 | disposition home or self-care (01) ==
LOC: PREOP 10:05
PROVIDERS: ATTEND Orthopaedic Surgery
DX: Z01.818 Encounter for other preprocedural examination (principal)

== ENCOUNTER 2018-09-25 07:42 | Day surgery (SDC) | payer MEDICARE ==
--- NOTE | 2018-09-18 13:08 | NUR ---
PREOP SENT OVER A COPY OF THE PATIENTS LIST, I REVIEWED IT WITH WHAT HAS BEEN FILLED RECENTLY AT [facility]. I THEN CALLED AND DISCUSSED THE MEDICATIONS OVER THE PHONE WITH A FAMILY MEMBER. THE LIST PREOP HAS IS OLD AND SOME CHANGES HAVE BEEN MADE. I UPDATED THE MED REC ACCORDINGLY. [facility] FILLED: 09-05-18 MEMANTINE 10MG (TAKES BID) 09-05-18 ACYCLOVIR 400MG DAILY 09-05-18 HYDRALAZINE 25MG 2AM, 1 MID DAY, 2 EVENING- ONLY TAKES 1 BID 09-01-18 CLONIDINE 0.1MG TID PRN 08-30-18 HYDROCODONE 10-325MG 1 Q6H PRN 08-30-18 FENTANYL 12MCG Q72H (WAS INCREASED TO TWO PATCHES [id number] UNTIL THEY COULD GET NEW SCRIPT FOR 25MCG PATCH- I ENTERED 25MCG PATCH Q72H) 08-09-18 TRAMADOL 50MG TID PRN (NO LONGER TAKING) 08-09-18 BASAGLAR KWIKPEN 12 UNITS DAILY (TAKES 16 UNITS DAILY) 07-26-18 ASPIRIN 81MG CHEW DAILY 07-13-18 ATORVASTATIN 80MG HS 07-04-18 SERTRALINE 50MG DAILY 06-23-18 PROTONIX 40MG DAILY 06-16-18 CALCITRIOL 0.25MCG Tue, TUE, SUN 06-15-18 POTASSIUM 10MEQ BID (ONLY TAKES Tue WITH HCTZ) 06-15-18 METOPROLOL ER 50MG DAILY (NO LONGER TAKING) 06-12-18 CLOBETASOL CREAM BID PRN PSORIASIS 06-12-18 PLAVIX 75MG DAILY (NO LONGER TAKING) 05-24-18 HCTZ 12.5MG #48/90 DAYS (TAKES Tue) 05-06-17 NITROGLYCERIN (PRN) OTC MEDICATIONS: VITAMIN C DAILY VITAMIN D3 DAILY VITAMIN B12 DAILY MELATONIN 5-10MG HS PRN VITAMIN E DAILY
[2018-09-25] VITALS (16 sets, daily range): BP systolic 96–166; BP diastolic 45–80
[~2018-09-25] VITALS: Ht 160 cm; Wt 61.2 kg
[~2018-09-25 07:42] MED LIST changes: +ACYC400T PO; +ASCO-262 PO; +ASPI-999 PO; +ATOR80TA76 PO; +CHLO50TA2 PO; +CHOL400C9 PO; +CLOB15CR2 TP; +CLON0.1T PO; +CLOP75TA69 PO; +CYAN500T62 PO; +FENT1PAT57 TD; +FERR325T18 PO; +HYDR-3820 PO; +HYDR-3923 PO; +HYDR12.56 PO; +INSU100I34 SQ; +MELA5TAB14 PO; +MEMA10TA22 PO; +METO-370 PO; +NITR0.4T39 SL; +PANT40TA3 PO; +POTA10TA10 PO; +SERT50TA9 PO; +TRAM50TA2 PO; +VITA400C60 PO
[2018-09-25] MEDS ORDERED: ceFAZolin 2 GM/50 ML NS 50 ML IV ONE (08:00)
[2018-09-25] MEDS ORDERED: VANCOMYCIN 1000 MG/VIAL ONE (08:27)
[2018-09-25] MEDS ORDERED: BUP/EPI 0.5% 1:200,000 (MARCAINE) 10ML VIAL IJ ONE (08:27)
[2018-09-25] MEDS ORDERED: ONDANSETRON 4 MG/2 ML (SDV) Z0FRAN ONE (08:27)
[2018-09-25] MEDS ORDERED: PROPOFOL INJECTION 50 ML IV ONE (08:27)
[2018-09-25] MEDS ORDERED: MIDAZOLAM 2 MG/2 ML (VERSED) VIAL ONE (08:27)
[2018-09-25] MEDS ORDERED: BACITRACIN OINTMENT 28 GM TUBE ONE (08:27)
[2018-09-25] MEDS: LACTATED RINGERS 1,000 ML IV PRN (08:30)
[2018-09-25] MEDS ORDERED: morphine INJ 10 MG/ML 1ML (SYR OR VIAL) IVP ONE (10:00)
--- NOTE | 2018-09-25 10:20 | NUR ---
TO AMB SURG FROM PAR PER CART. AWAKE, MID BACK PAIN RATED 5. LARGE BAND-AID D/I TO SURGICAL SITE AT MID BACK, SLIGHTLY RIGHT OF SPINE. PO FLUIDS AND CRACKERS PROVIDED. ON O2 AT 2L PER NC. BED LOW, LOCKED, RAILS UP X2. CALL LIGHT TO PT AND FAMILY AT SIDE.
--- NOTE | 2018-09-25 11:15 | NUR ---
HAVE ATTEMPTED TO WEAN PT OFF O2. TOLERATES WELL WHEN AWAKE, HOWEVER, SAO2 DROPS TO 89-90% ON ROOM AIR WHEN ASLEEP. O2 RESTARTED AT 2L PER NC. PT DOES WEAR O2 AT NIGHT AND PRN AT HOME.
--- NOTE | 2018-09-25 11:20 | NUR ---
RESTING QUIETLY IN BED, EYES CLOSED, RESPIRATIONS EVEN, UNLABORED WITH O2 ON AT 2L NC. AWAKENS EASILY. DENIES PAIN. LARGE BANDAID REMAINS D/I TO SURGICAL SITE.
[2018-09-25] MEDS ORDERED: NITROGLYCERIN 0.4 MG SL TABS BTL 25'S SL PRN (12:15)
[2018-09-25] MEDS ORDERED: ONDANSETRON 4 MG/2 ML (SDV) Z0FRAN IV PRN (12:15)
[2018-09-25] MEDS ORDERED: cloNIDine 0.1 MG (CATAPRES) TAB PO PRN (12:15)
--- NOTE | 2018-09-25 13:00 | NUR ---
HAS BEEN RESTING QUIETLY, AWAKENS EASILY. NO CHANGE IN SITE OR PAIN ASSESSMENTS. FEELS TOUCH TO LEGS/FEET, LOWER EXTREMITIES WARM, PINK, ABLE TO PUSH FEET AGAINST PRESSURE THROUGHOUT RECOVERY PERIOD ON SDC. TRANSPORTED TO [address] [place] [address], ROOM 427 PER CART WITH STAFF X2. ASSISTED UP TO BR WITH STAFF X2, VOIDED, ASSIST TO BED. REPORT TO Sage CASE RN AND CARE OF PT TRANSFERRED TO [address] [place] [address].
[2018-09-25] MEDS: HYDROcodone/APAP 10 MG/325 MG (LORTAB) TAB PO PRN (13:52)
--- NOTE | 2018-09-25 15:02 | Anesthesia-General Post-Op ---
MAC Patient Condition Mental Status/LOC: Same as Preop Cardiovascular: Satisfactory Nausea/Vomiting: Absent Respiratory: Satisfactory Pain: Controlled Complications: Absent Post Op Complications Complications None Follow Up Care/Instructions Patient Instructions None needed. Anesthesiology Discharge Order Discharge Order Patient was seen after the procedure and she was doing well, no complaints, stable vital signs, no apparent adverse anesthesia problems. ONI FRIEDMAN DO Sep 25, 2018 15:02
[2018-09-25] MEDS: KCL 10 MEQ TAB (MICRO K) PO SCH (16:43)
[2018-09-25] MEDS: fentaNYL PATCH 25 MCG (DURAGESIC) TD SCH (16:43)
[2018-09-25] MEDS: HYDROCHLOROTHIAZIDE 12.5 MG (HCTZ) CAP PO SCH (16:45)
[2018-09-25] MEDS: ACYCLOVIR 400 MG TABLET (ZOVIRAX) PO SCH (16:47)
[2018-09-25] MEDS: ASCORBIC ACID (VIT C) 500 MG TABLET PO SCH (16:47)
--- NOTE | 2018-09-25 19:08 | Diagnostic Imaging Report ---
INDICATION: Compression fracture. Fluoroscopy was provided in the OR during T12 kyphoplasty. 53 seconds of fluoroscopy was utilized. IMPRESSION: Fluoroscopy for T12 kyphoplasty. Dictated by: Dictated on workstation # [id number]
[2018-09-25] MEDS ORDERED: MELATONIN 3 MG TABLET PO PRN (21:00)
[2018-09-25] MEDS: ATORVASTATIN 80 MG (LIPITOR) TABLET PO SCH (22:15)
[2018-09-25] MEDS: MEMANTINE 10 MG (NAMENDA) TABLET PO SCH (22:15)
[2018-09-25] MEDS: hydrALAZINE (APRESOLINE) 25 MG TAB PO SCH (22:15)
[2018-09-25] MEDS: SERTRALINE 50 MG (ZOLOFT) TABLET PO SCH (22:15)
[2018-09-26] VITALS (7 sets, daily range): BP systolic 102–129; BP diastolic 50–68
[2018-09-26] MEDS: LACTATED RINGERS 1,000 ML IV PRN (04:21)
--- NOTE | 2018-09-26 06:45 | Progress Note ---
Subjective Date Seen by a Provider: Sep 26, 2018 Time Seen by a Provider: 06:42 Subjective/Events-last exam POD #1 s/p kyphoplasty for T12 burst fx. Pain is much better but still present. Goal it to work with therapy, possible IPR placement prior to dismissal home due to patients deconditioning and general weakness and fall risks. Review of Systems General: No Chills; Fatigue HEENT: No Head Aches, No Eye Pain, No Ear Pain, No Dysphasia, No Sinus Congestion, No Post Nasal Drip, No Sore Throat Pulmonary: No Dyspnea, No Cough, No Pleuritic Chest Pain Cardiovascular: No: Chest Pain, Palpitations Gastrointestinal: No: Nausea, Vomiting, Abdominal Pain, Diarrhea Genitourinary: No Dysuria Musculoskeletal: back pain Neurological: Weakness; No: Numbness, Incoordination, Change in speech, Confusion Objective Exam Vital Signs Date Time Temp Pulse Resp B/P (MAP) Pulse Ox O2 Delivery O2 Flow Rate FiO2 09/26/18 04:00 97.1 82 18 112/63 (79) 97 Nasal Cannula 2.00 09/26/18 00:00 98.1 65 18 123/58 (79) 95 Nasal Cannula 2.00 09/25/18 21:00 96 Nasal Cannula 2.00 09/25/18 20:20 97.9 63 18 101/57 (72) 96 Nasal Cannula 2.00 09/25/18 17:48 60 100/56 (71) 09/25/18 15:55 98.2 63 18 96/55 (69) 96 Nasal Cannula 2.00 09/25/18 15:15 80 16 126/66 (86) 95 Nasal Cannula 2.00 09/25/18 14:30 78 18 130/80 (97) 99 Nasal Cannula 2.00 09/25/18 14:00 97.0 78 18 128/76 (93) 99 Nasal Cannula 2.00 09/25/18 13:45 97.8 73 16 127/78 (94) 98 Nasal Cannula 2.00 09/25/18 12:35 97.5 62 16 101/46 97 Nasal Cannula 2.00 09/25/18 11:20 97.5 66 16 117/51 94 Nasal Cannula 1.00 09/25/18 10:50 96.7 78 16 140/60 95 Nasal Cannula 2.00 09/25/18 10:20 97.7 76 16 157/67 96 Nasal Cannula 2.00 09/25/18 10:20 Nasal Cannula 2 09/25/18 10:20 98.1 18 96 Nasal Cannula 2 09/25/18 10:10 18 95 Nasal Cannula 2 09/25/18 10:05 Room Air 09/25/18 10:00 18 95 Nasal Cannula 2 09/25/18 09:50 18 95 Nasal Cannula 2 09/25/18 09:49 97.9 16 92 Nasal Cannula 2 09/25/18 09:49 Nasal Cannula 2 09/25/18 07:42 98.3 71 16 166/77 (106) 99 Room Air I & O 09/26/18 07:00 Intake Total 400 ml Output Total 700 ml Balance -300 ml Capillary Refill : General Appearance: No Apparent Distress Neck: Normal Inspection, Non Tender, Supple Respiratory: Chest Non Tender, No Accessory Muscle Use, No Respiratory Distress Cardiovascular: No Edema, No JVD, Normal Peripheral Pulses Gastrointestinal: non tender, soft Extremity: No Calf Tenderness, No Pedal Edema Neurologic/Psychiatric: Alert, No Motor/Sensory Deficits Skin: Normal Color, Warm/Dry Results Lab Laboratory Tests 09/25/18 07:59: Glucometer 82 09/25/18 15:55: Glucometer 192H 09/25/18 21:03: Glucometer 126H 09/26/18 06:01: Glucometer 114H Assessment/Plan Assessment/Plan Assess & Plan/Chief Complaint assessment POD #1 s/p kyphoplasty of T12 burst fx generalized weakness and deconditioning plan PT OT has been consulted eval for IPR placement RACHEL ESQUIVEL Sep 26, 2018 06:45
[2018-09-26] MEDS: ACYCLOVIR 400 MG TABLET (ZOVIRAX) PO SCH (09:25)
[2018-09-26] MEDS: VITAMIN D3 400 UNITS (CHOLECALCIFEROL) TABLET PO SCH (09:25)
[2018-09-26] MEDS: SERTRALINE 50 MG (ZOLOFT) TABLET PO SCH ×2 (09:25→22:26)
[2018-09-26] MEDS: ASCORBIC ACID (VIT C) 500 MG TABLET PO SCH (09:25)
[2018-09-26] MEDS: MEMANTINE 10 MG (NAMENDA) TABLET PO SCH ×2 (09:25→22:26)
[2018-09-26] MEDS: HYDROcodone/APAP 10 MG/325 MG (LORTAB) TAB PO PRN ×2 (09:25→17:40)
[2018-09-26] MEDS: hydrALAZINE (APRESOLINE) 25 MG TAB PO SCH ×2 (09:25→22:26)
[2018-09-26] MEDS: PANTOPRAZOLE 40 MG (PROTONIX) TAB PO SCH (09:25)
--- NOTE | 2018-09-26 10:04 | OPERATIVE REPORT ---
DATE OF SERVICE: 09/25/2018 SURGEON: Benjamin Jeffrey DO AVIATION ELECTRICAL TECHNICIAN: None. PREOPERATIVE DIAGNOSES: 1. T12 compression fracture. 2. Back pain. 3. Osteoporosis. POSTOPERATIVE DIAGNOSES: 1. T12 compression fracture. 2. Back pain. 3. Osteoporosis. PROCEDURE PERFORMED: T12 kyphoplasty. COMPLICATIONS: None. SPECIMEN SENT: None. DRAINS PLACED: None. ESTIMATED BLOOD LOSS: None. ANESTHESIA: Light IV sedation with local anesthetic. HISTORY OF PRESENT ILLNESS: The patient is a very pleasant 72-year-old female who presented to me with debilitating back pain. She failed all conservative measures and did wish to proceed with cement augmentation in the form of kyphoplasty. She understood the risks and benefits. She had significant ambulatory dysfunction due to this and was requesting admit for placement due to her inability to take care of herself. DESCRIPTION OF PROCEDURE: The patient was identified by name on wrist band in the preoperative holding area. Her operative site was signed, consent was signed. SCDs were placed. Antibiotics were started. She was taken to the operating room theater and placed under light sedation and placed in the prone position. She was secured to the table. She was prepped and draped in the usual sterile fashion. Formal timeout was conducted. AP and lateral x-ray were then brought in and centered over the pedicles of T12. Please note, she was prepped and draped in the usual sterile fashion. After formal timeout and right-sided stab incision was made and I advanced a Morrice introducer through the right pedicle via a unilateral approach. I was able to achieve midline placement of this. I attempted to obtain a biopsy. I was unable to do so. I passed the drill followed by a balloon, which I then inflated and I then carefully deployed Morrice cement into the vertebral body of T12 from front to back. I was able to achieve good endplate to endplate fill without extravasation. When I was finished AP and lateral x-ray demonstrated good fill of the cement. At this point, I removed the introducer, obtained final x-rays. I placed a Band-Aid. Placed the patient in the supine position, took her to the PACU where she awoke without incident. She tolerated the procedure well. PLAN: At this time is to admit the patient under observation. We will consult PT, OT for eval and treat and attempt to place her in a facility. Social workers will aid us with this. Job ID: [id number] DocumentID: [id number] Dictated Date: 09/26/2018 07:20:36 Recooperer Date: 09/26/2018 10:03:50 Dictated By: BENJAMIN JEFFREY DO
--- NOTE | 2018-09-26 10:20 | Occupational Therapy Eval ---
OT Evaluation-General/PLF Medical Diagnosis Admission Date Medical Diagnosis: T12 kyphoplasty Onset Date: Sep 26, 2018 Therapy Diagnosis Therapy Diagnosis: impaired ADLs and mobility Height/Weight Height (Feet): 5 Height (Inches): 3.00 Weight (Pounds): 135 Weight (Ounces): 0.0 Precautions Precautions/Isolations: Fall Prevention, Standard Precautions Safety Interventions: None Weight Bear Status Weight Bearing Restriction: Weight Bearing/Tolerated Referral Referral Reason: Activity Tolerance, Self Care, Evaluation/Treatment, Strengthening/ROM Medical History Pertinent Medical History: HTN Additional Medical History s/p kyphoplasty for T12 burst fx. Reviewed History: Yes Social History Home: Single Level Current Living Status: Alone Entry Into Home: Stairs Without Railing Steps Into Home: 2 ADL-Prior Level of Function Therapy Code Descriptions/Definitions Functional [place] Measure: 0=Not Assessed/NA 4=Minimal Assistance 1=Total Assistance 5=Supervision or Setup 2=Maximal Assistance 6=Modified [place] 3=Moderate Assistance 7=Complete [place] Therapy Quality Codes: 6 Independent with activity with or without an assistive device 5 Patient requires set up or clean up by helper. Patient completes activity by themselves 4 Supervision or touching assist (CGA). Stanton provide cues , steadying assist 3 The helper provides less than half the effort to complete the activity 2 The helper provides more than half the effort to complete the activity 1 Dependent. The helper does all the effort to complete an activity 7 Patient refused to complete or attempt activity 9 The patient did not perform the activity before the current illness or injury 88 Not attempted due to Medical conditions or safety concerns Functional Abilities and Goals: Independent: Patient completed the activities by him/herself, with or without an assistive device, with no assistance from a helper. Needed Some Help: Patient needed partial assistance from another person to complete activities. Dependent: A helper completed the activities for the patient. Unknown: Not Applicable: ADL PLOF Comments pt reports indep PLOF using no AD Self Care: Independent Functional Cognition: Independent DME/Equipment: Grab Bars, Tub/Shower Drive Self: Yes OT Current Status Subjective pt sitting in recliner chair upon OT arrival. pt agreed to OT evaluation session. pt reports 2/10 back pain. NSG is aware Mental Status/Objective Patient Orientation: Person, Place, Time, Situation Attachments: Oxygen Current Glasses/Contacts: No Hearing Aids: No Dentures/Partials: No Hand Dominance: Right Upper Extremity ROM WNL Upper Extremity Coordination ann UE trimmers. pt stated this is PLOF Upper Extremity Sensation light touch: WNL Upper Extremity Strength 4-/5 MMT ADL-Treatment Therapy Code Descriptions/Definitions Functional [place] Measure: 0=Not Assessed/NA 4=Minimal Assistance 1=Total Assistance 5=Supervision or Setup 2=Maximal Assistance 6=Modified [place] 3=Moderate Assistance 7=Complete [place] Therapy Quality Codes: 6 Independent with activity with or without an assistive device 5 Patient requires set up or clean up by helper. Patient completes activity by themselves 4 Supervision or touching assist (CGA). Stanton provide cues , steadying assist 3 The helper provides less than half the effort to complete the activity 2 The helper provides more than half the effort to complete the activity 1 Dependent. The helper does all the effort to complete an activity 7 Patient refused to complete or attempt activity 9 The patient did not perform the activity before the current illness or injury 88 Not attempted due to Medical conditions or safety concerns Grooming (FIM): 4 (CGA while standing to wash face ) Lower Body Dressing (FIM): 1 Toileting (FIM): 4 (CGA for safety/ balance ) Transfers (B, C, W/C) (FIM): 4 (CGA use of RW. pt required MIN A to perform sit to stand) Toilet/Commode Transfer (FIM): 4 Other Treatments pt education on back precautions. pt verbalized understanding. Education OT Patient Education: Correct positioning, Safety issues, Transfer techniques Teaching Recipient: Patient Teaching Methods: Discussion Response to Teaching: Verbalize Understanding OT Short Term Goals Short Term Goals Grooming(FIM): 6 Bathing(FIM): 5 1=Demonstrate adherence to instructed precautions during ADL tasks. 2=Patient will verbalize/demonstrate understanding of assistive devices/modifications for ADL. 3=Patient will improve strength/tolerance for activity to enable patient to perform ADL's. OT Fpc Goals Fpc Goals Eating (FIM): 7 Grooming(FIM): 6 Bathing(FIM): 6 Bathing Location: L Arm, R Arm, L Upper Leg, R Upper Leg, L Lower Leg (including foot), R Lower Leg (including foot), Chest, Abdomen, Buttocks, Perineal Area Upper Body Dressing(FIM): 6 Lower Body Dressing(FIM): 6 Toileting(FIM): 6 Transfers (B,C,W/C) (FIM): 6 Toilet/Commode Transfer(FIM): 6 Additional Goals: 1-Demonstrate ADL Tasks, 2-Verbalize Understanding, 3- ImproveStrength/Rainer 1=Demonstrate adherence to instructed precautions during ADL tasks. 2=Patient will verbalize/demonstrate understanding of assistive devices/modifications for ADL. 3=Patient will improve strength/tolerance for activity to enable patient to perform ADL's. OT Education/Plan Problem List/Assessment Assessment: Decreased Activ Tolerance, Decreased UE Strength, Impaired Funct Balance, Impaired I ADL's, Impaired Self-Care Skills Discharge Recommendations Plan/Recommendations: Continue POC Therapy D/C Recommendations: Acute Rehab Treatment Plan/Plan of Care Treatment,Training & Education: Yes Patient would benefit from OT for education, treatment and training to promote independence in ADL's, mobility, safety and/or upper extremity function for ADL's. Plan of Care: ADL Retraining, Functional Mobility, Group Exercise/Act as Ind, UE Funct Exercise/Act Treatment Duration: Oct 10, 2018 Frequency: 5 times per week Estimated Hrs Per Day: .25 hour per day Agreement: Yes Rehab Potential: Fair Time/GCodes Start Time: 09:58 Stop Time: 10:22 Billed Treatment Time EVM 12 minutes, ADL 10 minutes, 1 unit KESHAWN HIGGINS OT Sep 26, 2018 10:20
--- NOTE | 2018-09-26 10:35 | Physical Therapy Evaluation ---
PT Evaluation-General Medical Diagnosis Admission Date September 25, 2018 Medical Diagnosis: T12 burst fracture Onset Date: Sep 26, 2018 Therapy Diagnosis Therapy Diagnosis: debility/weakness Height/Weight Height (Feet): 5 Height (Inches): 3.00 Weight (Pounds): 135 Weight (Ounces): 0.0 Precautions Precautions/Isolations: Fall Prevention, Standard Precautions Weight Bear Status Right Lower Extremity: Right Full Weight Bearing Left Lower Extremity: Left Full Weight Bearing Referral Physician: Wojciech Reason for Referral: Evaluation/Treatment Medical History Pertinent Medical History: DM, GERD, HTN Current History s/p T12 kyphoplasty Reviewed History: Yes Social History Home: Single Level Current Living Status: Other Family (patient reports she lives with her daugther currently) Entry Into Home: Level Entry, Stairs Without Railing Prior/Core FIM Prior Level of Function Therapy Code Descriptions/Definitions Functional [place] Measure: 0=Not Assessed/NA 4=Minimal Assistance 1=Total Assistance 5=Supervision or Setup 2=Maximal Assistance 6=Modified [place] 3=Moderate Assistance 7=Complete Will Therapy Quality Codes: 6 Independent with activity with or without an assistive device 5 Patient requires set up or clean up by helper. Patient completes activity by themselves 4 Supervision or touching assist (CGA). [place] provide cues , steadying assist 3 The helper provides less than half the effort to complete the activity 2 The helper provides more than half the effort to complete the activity 1 Dependent. The helper does all the effort to complete an activity 7 Patient refused to complete or attempt activity 9 The patient did not perform the activity before the current illness or injury 88 Not attempted due to Medical conditions or safety concerns Functional Abilities and Goals: Independent: Patient completed the activities by him/herself, with or without an assistive device, with no assistance from a helper. Needed Some Help: Patient needed partial assistance from another person to complete activities. Dependent: A helper completed the activities for the patient. Unknown: Not Applicable: Bed Mobility: 6 Transfers (B,C,W/C) (FIM): 6 Gait: 2 Indoor Mobility (Ambulation): Independent (limited for past month due to pain) Stairs: Needed Some Help Prior Devices Use: Walker PT Evaluation-Current Subjective Patient rates back pain 8/10 with meds issued. Pain Numeric Pain Scale: 8 Location: Medial Location Body Site: Back Pain Description: Pressure, Acute Objective Patient Orientation: Person, Time, Situation Problem Solving: Poor Attachments: Oxygen, IV ROM/Strength ROM Lower Extremities bilateral LE WFL Strength Lower Extremities 4-/5 grossly bilateral LE Integumentary/Posture Integumentary refer to nursing notes Bowel Incontinence: No Bladder Incontinence: No Posture slight trunk flexed posture Neuromuscular (Tone, Coordination, Reflexes) grossly intact with all/noted tremors bilateral UE in small spaces Sensory Vision: Functional Hearing: Functional Hand Dominance: Right Sensation Right Lower Extremit: Impaired Sensation Left Lower Extremity: Impaired Transfers Therapy Code Descriptions/Definitions Functional [place] Measure: 0=Not Assessed/NA 4=Minimal Assistance 1=Total Assistance 5=Supervision or Setup 2=Maximal Assistance 6=Modified [place] 3=Moderate Assistance 7=Complete Will Transfers (B, C, W/C) (FIM): 5 Scootin Rollin Supine to/from Sit: 5 Sit to/from Stand: 5 patient was able to toilet self without difficulty Gait Mode of Locomotion: Walk Anticipated Mode of Locomotion: Walk Gait (FIM): 5 Distance (FIM): 3=150 ft Distance: 200' Gait Level of Assist: 5 Gait Assistive Device: FWW Comments/Gait Description presents with extended UE's with FWW use. VC's required 90% of time for body placement in FWW for safety Balance Sitting Static: Normal Sitting Dynamic: Normal Standing Static: Fair Standing Dynamic: Fair Assessment/Needs 72 y.o. female, is deconditioned secondary to inactivity for past several weeks due to back pain. Patient will benefit from skilled PT to address functional strength and mobility to improve current LOF. Patient currently resides with daughter and has level entry into her home. Rehab Potential: Fair PT Short Term Goals Short Term Goals Time Frame: Oct 04, 2018 Transfers (B,C,W/C) (FIM): 6 Gait (FIM): 6 Distance (FIM): 3=150 ft Gait Distance Comment: 250' Gait Level of Assist: 6 Gait Assistive Device: FWW PT Plan Problem List Problem List: Activity Tolerance, Functional Strength, Gait Treatment/Plan Treatment Plan: Continue Plan of Care Treatment Plan: Bed Mobility, Education, Functional Activity Rainer, Functional Strength, Gait, Safety, Therapeutic Exercise, Transfers Treatment Duration: Oct 04, 2018 Frequency: 11 times per week Estimated Hrs Per Day: .5 hour per day Patient and/or Family Agrees t: Yes Discharge Recommendations Therapy D/C Recommendations: Home w/ Family Support, Physical Therapy Home Care Time/GCodes Time In: 908 Time Out: 925 Total Billed Treatment Time: 17 [facility] Sep 26, 2018 10:35
--- NOTE | 2018-09-26 15:05 | Physical Therapy Daily Note ---
PT Daily Note-Current Subjective Pt agreeable to PT session Pain Numeric Pain Scale: 0-No Pain Comment: discomfort with transitions Appearance Pt in bed awake and alert upon arrival, visitor present. At end of session, pt supine in bed with HOB elevated per pt request, call light, phone and bedside table within reach, visitor still present Mental Status Patient Orientation: Person, Place, Time, Eyes Open, Situation Attachments: Oxygen, IV Transfers Therapy Code Descriptions/Definitions Functional [place] Measure: 0=Not Assessed/NA 4=Minimal Assistance 1=Total Assistance 5=Supervision or Setup 2=Maximal Assistance 6=Modified [place] 3=Moderate Assistance 7=Complete [place] Therapy Quality Codes: 6 Independent with activity with or without an assistive device 5 Patient requires set up or clean up by helper. Patient completes activity by themselves 4 Supervision or touching assist (CGA). [place] provide cues , steadying yehuda t 3 The helper provides less than half the effort to complete the activity 2 The helper provides more than half the effort to complete the activity 1 Dependent. The helper does all the effort to complete an activity 7 Patient refused to complete or attempt activity 9 The patient did not perform the activity before the current illness or injury 88 Not attempted due to Medical conditions or safety concerns Transfers (B, C, W/C) (FIM): 5 Supine to/from Sit: 5 (min verb inst for technique and ease of transition) Sit to/from Stand: 5 good hand placement during sit to and from stand transfers with min inst for technique and safety Weight Bearing Right Lower Extremity: Right Full Weight Bearing Left Lower Extremity: Left Full Weight Bearing Gait Training Gait (FIM): 5 Distance (FIM): 3=150 ft Distance: 360 Gait Level of Assist: 5 (CGA provided due to unsteadiness at times) Gait Persons Needed: 1 Gait Assistive Device: FWW NBOS, slight path deviation, slow pace, inconsistent speed, SOA, increased fatigue, walker too far fwd but able to follow inst for proper distance and safety, unsteadiness at times but without LOB Treatments bed mobility, transfers, safety, gait, education, balance, strength, activity tolerance, functional mobility Assessment Current Status: Good Progress increased distance with gait compared to this morning but also with increased SOA and fatigue PT Short Term Goals Short Term Goals Time Frame: Oct 04, 2018 Transfers (B,C,W/C) (FIM): 6 Gait (FIM): 6 Distance (FIM): 3=150 ft Gait Distance Comment: 250' Gait Level of Assist: 6 Gait Assistive Device: FWW PT Plan Treatment/Plan Treatment Plan: Continue Plan of Care Treatment Plan: Bed Mobility, Education, Functional Activity Rainer, Functional Strength, Gait, Safety, Therapeutic Exercise, Transfers Treatment Duration: Oct 04, 2018 Frequency: 11 times per week Estimated Hrs Per Day: .5 hour per day Patient and/or Family Agrees t: Yes Safety Risks/Education Patient Education: Gait Training, Transfer Techniques, Correct Positioning, Safety Issues Teaching Recipient: Patient Teaching Methods: Demonstration, Discussion Response to Teaching: Verbalize Understanding, Return Demonstration, Reinforcement Needed Time/GCodes Time In: 1335 Time Out: 1400 Total Billed Treatment Time: 25 Total Billed Treatment 1 visit, GT x15 min, FA x10 min STIVEN BENOIT PTA Sep 26, 2018 15:05
--- NOTE | 2018-09-26 16:42 | NUR ---
CM/SS. Plan is to pursue Inpatient Rehab therapy in [facility] so that daughter Herbert Zhang can be more available for monitor, support, and long range planning. REFERRALS COMPLETED: [facility] Attn: Daina FX: [phone], confirmed but not rec'd. Resent [phone] direct to Daina PH: Direct, [facility] Attn: Yoly FX: [phone] PH: [phone] Bomb Squad Commander is familiar with this patient and daughter from previous admission of Mr. Mi who has since passed. Patient has [employer] and will require pre-auth before any facility can accept. Both admission coordinators were proactive and indicate quick response, likely tomorrow.
[2018-09-26] MEDS: ATORVASTATIN 80 MG (LIPITOR) TABLET PO SCH (22:26)
[2018-09-27] MEDS: HYDROcodone/APAP 10 MG/325 MG (LORTAB) TAB PO PRN ×2 (01:16→23:38)
[2018-09-27 04:15] VITALS: BP 101/58
[2018-09-27] MEDS ORDERED: HYDR-3820 PO (06:38)
--- NOTE | 2018-09-27 06:41 | Discharge Summary ---
Diagnosis/Chief Complaint Date of Admission 09/25/2018 Date of Discharge 09/27/2018 Admission Diagnosis Admission Diagnosis T12 burst fracture Discharge Diagnosis same Reason Hospital Visit vertebroplasty Discharge Summary Hospital Course Hospital Course Tonya Mi was admitted for observation following T12 kyphoplasty for burst fx. She has deconditioned due to inactivity for the past month. She was evaluated by Pt who recommended home PT. She is table and her pain has improved but is not completely resolved. Labs Laboratory Tests 09/25/18 07:59: 09/25/18 15:55: Glucometer 192H 09/25/18 21:03: Glucometer 126H 09/26/18 06:01: Glucometer 114H 09/26/18 10:56: Glucometer 195H 09/26/18 15:32: 09/26/18 21:11: Glucometer 161H 09/27/18 05:20: Procedures None. Discharge Physical Examination Allergies: Coded Allergies: No Known Drug Allergies (Unverified , 08/17/18) Vitals & I&Os Vital Signs Date Time Temp Pulse Resp B/P (MAP) Pulse Ox O2 Delivery O2 Flow Rate FiO2 09/27/18 04:15 97.5 85 19 101/58 (72) 97 Nasal Cannula 2.00 General Appearance: Alert, Cooperative, Mild Distress Respiratory: Normal Air Movement Cardiovascular: Regular Rate Abdominal: Normal Bowel Sounds Skin: No Rashes, No Breakdown Neuro: Normal Gait, Normal Speech, Strength at 5/5 X4 Ext Discharge Home Medications Reviewed and agree with Discharge Medication list on patient's Discharge Instruction sheet Instructions to Patient/Family Please see electronic discharge instructions given to patient. RACHEL ESQUIVEL Sep 27, 2018 06:41
[2018-09-27 08:00] VITALS: BP 153/70
[2018-09-27] MEDS: VITAMIN D3 400 UNITS (CHOLECALCIFEROL) TABLET PO SCH (09:11)
[2018-09-27] MEDS: ACYCLOVIR 400 MG TABLET (ZOVIRAX) PO SCH (09:11)
[2018-09-27] MEDS: SERTRALINE 50 MG (ZOLOFT) TABLET PO SCH ×2 (09:11→20:29)
[2018-09-27] MEDS: PANTOPRAZOLE 40 MG (PROTONIX) TAB PO SCH (09:11)
[2018-09-27] MEDS: ASCORBIC ACID (VIT C) 500 MG TABLET PO SCH (09:11)
[2018-09-27] MEDS: MEMANTINE 10 MG (NAMENDA) TABLET PO SCH ×2 (09:18→20:51)
[2018-09-27] MEDS: hydrALAZINE (APRESOLINE) 25 MG TAB PO SCH ×2 (09:18→20:28)
--- NOTE | 2018-09-27 10:18 | Physical Therapy Daily Note ---
PT Daily Note-Current Subjective Pt agreeable to PT session. States she is feeling a little more shaky and SOA than yesterday Pain Numeric Pain Scale: 5-Moderate Pain Comment: mid back, nsg aware Appearance pt in bed easily aroused upon arrival. At end of session, pt sitting up in recliner eating breakfast Mental Status Patient Orientation: Person, Place, Time, Eyes Open, Situation Attachments: Oxygen (1.5 L/NC) Transfers Therapy Code Descriptions/Definitions Functional [place] Measure: 0=Not Assessed/NA 4=Minimal Assistance 1=Total Assistance 5=Supervision or Setup 2=Maximal Assistance 6=Modified [place] 3=Moderate Assistance 7=Complete [place] Therapy Quality Codes: 6 Independent with activity with or without an assistive device 5 Patient requires set up or clean up by helper. Patient completes activity by themselves 4 Supervision or touching assist (CGA). [place] provide cues , steadying assist 3 The helper provides less than half the effort to complete the activity 2 The helper provides more than half the effort to complete the activity 1 Dependent. The helper does all the effort to complete an activity 7 Patient refused to complete or attempt activity 9 The patient did not perform the activity before the current illness or injury 88 Not attempted due to Medical conditions or safety concerns Transfers (B, C, W/C) (FIM): 4 Scootin Rollin Supine to/from Sit: 5 (HOB elevated) Sit to/from Stand: 4 (CGA for safety, inst for hand placement required) Bed to/from Chair: 4 (CGA for safety) Weight Bearing Right Lower Extremity: Right Full Weight Bearing Left Lower Extremity: Left Full Weight Bearing Gait Training Gait (FIM): 4 Distance (FIM): 3=150 ft Distance: 476 Gait Level of Assist: 4 (CGA provided for safety, unsteady at times, mis stepped x2 episodes able to self correct) Gait Persons Needed: 1 Gait Assistive Device: FWW decreased step length, height, heel strike and toe off. occasional unsteadiness, LOB episodes self corrected this date. slow pace, inconsistent speeds, standing rest breaks, increased SOA. NBOS, scissoring episode x1. slighty kyphotic with fwd head. Able to improve gait quality and posture briefly each time with instruction Treatments bed mobility, safety, transfers, gait, education, functional mobility, activity tolerance, balance, strength Assessment Current Status: Good Progress continues to increase gait distance although with increased tremors/shakiness and increased SOA. Continues with weakness and unsteadiness during transfers and gait but able to self correct this visit PT Short Term Goals Short Term Goals Time Frame: Oct 04, 2018 Transfers (B,C,W/C) (FIM): 6 Gait (FIM): 6 Distance (FIM): 3=150 ft Gait Distance Comment: 250' Gait Level of Assist: 6 Gait Assistive Device: FWW PT Plan Treatment/Plan Treatment Plan: Continue Plan of Care Treatment Plan: Bed Mobility, Education, Functional Activity Rainer, Functional Strength, Gait, Safety, Therapeutic Exercise, Transfers Treatment Duration: Oct 04, 2018 Frequency: 11 times per week Estimated Hrs Per Day: .5 hour per day Patient and/or Family Agrees t: Yes Safety Risks/Education Patient Education: Gait Training, Transfer Techniques, Safety Issues Teaching Recipient: Patient Teaching Methods: Demonstration, Discussion Response to Teaching: Verbalize Understanding, Return Demonstration Time/GCodes Time In: 950 Time Out: 1021 Total Billed Treatment Time: 31 Total Billed Treatment 1 visit, GT x 20 min, FA x11 min STIVEN BENOIT TOLL MECHANIC Sep 27, 2018 10:18
--- NOTE | 2018-09-27 11:02 | Occupational Ther Daily Note ---
OT Current Status-Daily Note Subjective pt sitting in recliner chair upon OT arrival. pt agreed to OT TX session with focus on increasing indep with ADLS and functional transfers. pt reports no pain. Mental Status/Objective Patient Orientation: Normal For Age Therapy Code Descriptions/Definitions Functional [place] Measure: 0=Not Assessed/NA 4=Minimal Assistance 1=Total Assistance 5=Supervision or Setup 2=Maximal Assistance 6=Modified [place] 3=Moderate Assistance 7=Complete [place] Attachments: Oxygen (2L NC) ADL-Treatment Eating (FIM): 6 Grooming (FIM): 6 Bathing (FIM): 5 (SBA secondary to VC to back precautions. noted increased timing secondary to tolernace. ) Bathing Location: L Arm, R Arm, L Upper Leg, R Upper Leg, L Lower Leg (including foot), R Lower Leg (including foot), Chest, Abdomen, Buttocks, Perineal Area Upper Body (FIM): 5 (set uppull over shirt ) Lower Body Dressing (FIM): 5 (pants, under pants, ann socksSBA secondary to VC to back precautions. noted increased timing secondary to tolernace.) Toileting (FIM): 5 (use of RW ) Transfers (B, C, W/C) (FIM): 5 (use of RW ) Toilet/Commode Transfer (FIM): 5 (use of RW ) pt required cuing for back precautions. pt demo ability to perform sponge bath at sink with intermitted sitting and standing. noted increase timing secondary to tolerance. post OT session. pt laying in be , call light within reach, all needs met. Education OT Patient Education: Correct positioning, Energy conservation, Modified ADL techniques, Progress toward Goal/Update tx plan, Purpose of tx/functional activities, Safety issues, Transfer techniques, Use of adapted equipment Teaching Recipient: Patient Teaching Methods: Demonstration, Discussion Response to Teaching: Verbalize Understanding, Return Demonstration OT Short Term Goals Short Term Goals Grooming(FIM): 6 Bathing(FIM): 5 Transfers (B,C,W/C) (FIM): 6 1=Demonstrate adherence to instructed precautions during ADL tasks. 2=Patient will verbalize/demonstrate understanding of assistive devices/modifications for ADL. 3=Patient will improve strength/tolerance for activity to enable patient to pe rform ADL's. OT Gis Technician Goals Gis Technician Goals Eating (FIM): 7 Grooming(FIM): 6 Bathing(FIM): 6 Bathing Location: L Arm, R Arm, L Upper Leg, R Upper Leg, L Lower Leg (including foot), R Lower Leg (including foot), Chest, Abdomen, Buttocks, Perineal Area Upper Body Dressing(FIM): 6 Lower Body Dressing(FIM): 6 Toileting(FIM): 6 Transfers (B,C,W/C) (FIM): 6 Toilet/Commode Transfer(FIM): 6 Additional Goals: 1-Demonstrate ADL Tasks, 2-Verbalize Understanding, 3- ImproveStrength/Rainer 1=Demonstrate adherence to instructed precautions during ADL tasks. 2=Patient will verbalize/demonstrate understanding of assistive devices/modifications for ADL. 3=Patient will improve strength/tolerance for activity to enable patient to perform ADL's. OT Education/Plan Problem List/Assessment Assessment: Decreased Activ Tolerance, Decreased UE Strength, Impaired Coordination, Impaired Funct Balance, Impaired I ADL's, Impaired Self-Care Skills Discharge Recommendations Plan/Recommendations: Continue POC Therapy D/C Recommendations: Acute Rehab Treatment Plan/Plan of Care Treatment,Training & Education: Yes Patient would benefit from OT for education, treatment and training to promote independence in ADL's, mobility, safety and/or upper extremity function for ADL's. Plan of Care: ADL Retraining, Functional Mobility, Group Exercise/Act as Ind, UE Funct Exercise/Act Treatment Duration: Oct 10, 2018 Frequency: 5 times per week Estimated Hrs Per Day: .25 hour per day Agreement: Yes Rehab Potential: Fair Time/GCodes Start Time: 10:20 Stop Time: 11:00 Billed Treatment Time ADL 40, 3 units KESHAWN HIGGINS OT Sep 27, 2018 11:02
[2018-09-27 12:00] VITALS: BP 126/68
[2018-09-27] MEDS: KCL 10 MEQ TAB (MICRO K) PO SCH (12:58)
--- NOTE | 2018-09-27 13:51 | Physical Therapy Daily Note ---
PT Daily Note-Current Subjective Pt. in bed asleep but agrees to Rx when awakened. State she is still not sure how she did this Pain Numeric Pain Scale: 3 Location: Medial Location Body Site: Back Pain Description: Ache Mental Status Patient Orientation: Normal For Age Attachments: Colostomy/Ileostomy, Oxygen (2L) Transfers Therapy Code Descriptions/Definitions Functional [place] Measure: 0=Not Assessed/NA 4=Minimal Assistance 1=Total Assistance 5=Supervision or Setup 2=Maximal Assistance 6=Modified [place] 3=Moderate Assistance 7=Complete [place] Therapy Quality Codes: 6 Independent with activity with or without an assistive device 5 Patient requires set up or clean up by helper. Patient completes activity by themselves 4 Supervision or touching assist (CGA). [place] provide cues , steadying assist 3 The helper provides less than half the effort to complete the activity 2 The helper provides more than half the effort to complete the activity 1 Dependent. The helper does all the effort to complete an activity 7 Patient refused to complete or attempt activity 9 The patient did not perform the activity before the current illness or injury 88 Not attempted due to Medical conditions or safety concerns sit to stand SBA to mod I, sup to sit with bed flat SBA , slow and pt. is uncomfortable with bed flat , wants in flexion while supine Weight Bearing Right Lower Extremity: Right Full Weight Bearing Left Lower Extremity: Left Full Weight Bearing Gait Training Gait (FIM): 5 Distance (FIM): 3=150 ft (250x2) Gait Level of Assist: 5 Gait Persons Needed: 1 Gait Assistive Device: FWW decreased step[ length L>R , instructed to implement heels strike and broaden GIRMA as well as stay in closer proximity to FWW. Exercises Supine Ex: Ankle pumps, Quad Set, Heel Slides, Scooting, Hip abd/add Supine Reps: 10 Seated Therapy Exercises: Ankle pumps, Sit to stand, Long arc quads, Hip flexion, Hip abd/add Seated Reps: 12 Assessment Current Status: Good Progress slow progress, pain and weakness PT Short Term Goals Short Term Goals Time Frame: Oct 04, 2018 Transfers (B,C,W/C) (FIM): 6 Gait (FIM): 6 Distance (FIM): 3=150 ft Gait Distance Comment: 250' Gait Level of Assist: 6 Gait Assistive Device: FWW PT Plan Treatment/Plan Treatment Plan: Continue Plan of Care Treatment Plan: Bed Mobility, Education, Functional Activity Rainer, Functional Strength, Gait, Safety, Therapeutic Exercise, Transfers Treatment Duration: Oct 04, 2018 Frequency: 11 times per week Estimated Hrs Per Day: .5 hour per day Patient and/or Family Agrees t: Yes Safety Risks/Education Patient Education: Gait Training, Transfer Techniques, Correct Positioning, Disease Process, Safety Issues Teaching Recipient: Patient Teaching Methods: Demonstration, Discussion Response to Teaching: Verbalize Understanding, Return Demonstration, Reinfo rcement Needed Time/GCodes Time In: 1325 Time Out: 1350 Total Billed Treatment Time: 25 Total Billed Treatment 1,GT15,EX10 ALONDRA MISHRA NON EMERGENCY SERVICES AMBULANCE DRIVER Sep 27, 2018 13:51
[2018-09-27 16:00] VITALS: BP 129/60
[2018-09-27] MEDS: HYDROCHLOROTHIAZIDE 12.5 MG (HCTZ) CAP PO SCH (17:15)
--- NOTE | 2018-09-27 17:31 | NUR ---
CM/SS. In summary, patient insurance denied benefits for inpatient rehab level of care[facility] health [facility]. Updated daughter Herbert and agreed that insurance would likely not approve senior living benefits either since they had already made a determination. PLAN: Home with daughter tomorrow. HHC: [facility] [place]. Dr. Cedric Zepeda has been physician of record there for [facility], update him of care plan. DME: Patient has FWW at home for use. Daughter concerned patient will not be motivated in the home environment enough to recover strength. Encouraged Herbert to try this care plan, then approach Dr. Zepeda ([place]) for possible senior living placement if the then current documentation would better support that. Herbert understands the plan would be for discharge tomorrow to her home, she will transport.
[2018-09-27 20:26] VITALS: BP 148/66
[2018-09-27] MEDS: ATORVASTATIN 80 MG (LIPITOR) TABLET PO SCH (20:29)
[2018-09-27] MEDS: fentaNYL PATCH 25 MCG (DURAGESIC) TD SCH (20:30)
--- NOTE | 2018-09-27 20:30 | NUR ---
removed fentanyl patch pt right and left hip wasted with Justin Grijalva. pt stated patches were put on tuesday09/25/18 at home and did not realize she had two patches on. I placed new patch on pt left hip.
[2018-09-27 23:20] VITALS: BP 141/65
[2018-09-28 04:14] VITALS: BP 118/56
[2018-09-28 08:47] VITALS: BP 126/60
[2018-09-28] MEDS: MEMANTINE 10 MG (NAMENDA) TABLET PO SCH (08:49)
[2018-09-28] MEDS: hydrALAZINE (APRESOLINE) 25 MG TAB PO SCH (08:50)
[2018-09-28] MEDS: ASCORBIC ACID (VIT C) 500 MG TABLET PO SCH (08:50)
[2018-09-28] MEDS: SERTRALINE 50 MG (ZOLOFT) TABLET PO SCH (08:50)
[2018-09-28] MEDS: ACYCLOVIR 400 MG TABLET (ZOVIRAX) PO SCH (08:50)
[2018-09-28] MEDS: PANTOPRAZOLE 40 MG (PROTONIX) TAB PO SCH (08:50)
[2018-09-28] MEDS: VITAMIN D3 400 UNITS (CHOLECALCIFEROL) TABLET PO SCH (08:50)
--- NOTE | 2018-09-28 09:49 | D/C HH Face to Face Order ---
D/C Face to Face Orders Reconcile Patient Problems Problems Reviewed?: Yes Instructions for Patient [employer], Patient Instructions/FollowUp: keep incision covered, clean, dry work with therapy on strengthening, ambulation Physician to follow Patient: Dr Zepeda Discharge Diet for Home: No Restrictions Patient Problems: T12 burst fracture deconditioning secondary to fracture Goals for Patient: strengthening and ambulation Patient Data-Allergies,Ht & Wt Patient Allergies: Coded Allergies: No Known Drug Allergies (Unverified , 08/17/18) Height (Feet): 5 Height (Inches): 3.00 Weight (Pounds): 135 Weight (Ounces): 0.0 Home Health Need/Face to Face Date of Face to Face: Sep 27, 2018 Clinical Findings: Generalized weakness and fatigue, Muscle weakness, Pain with ambulation, Unsteady gait I have seen Pt [id number]: Yes Discharged To: Home Diagnosis/Conditions: T12 burst fracture osteoporosis ambulatory dysfunction unsteady gait Patient is Homebound due to: Thierry fall risk due to instabilty, Muscle weakness, Pain w/ambulation Homebound Status Due to the above stated illness, injury or surgical procedure (medical condition or diagnosis) and associated clinical findings, the patient is homebound because of his/her inability to leave home except with aid of a supportive device and/or person AND leaving the home requires a considerable and taxing effort or is medically contraindicated. Pt req the following assistanc: Aid of another person, [facility] Nursing Orders Home Health Services Order: Nursing Services, Physical Therapy-Evaluate & Treat nursing for wound dressing change q72 hours, wound to stay covered and dry Home Health Infusion Therapy Line Start Date: Sep 25, 2018 Therapy Orders Therapy Orders: Physical Therapy Therapy Specific Orders: Gait training, Increase strength/endurance Certify Stmt I certify that this patient is under my care and that I, a nurse practitioner or a physician; a research study assistant working with me, had a face to face encounter that - meets the physician face to face encounter requirements with this patient as dated. RACHEL ESQUIVEL Sep 28, 2018 09:49
--- NOTE | 2018-09-28 10:14 | Physical Therapy Daily Note ---
PT Daily Note-Current Subjective Patient agrees to PT. Pain Numeric Pain Scale: 3 Location: Medial Location Body Site: Back Pain Description: Ache Mental Status Patient Orientation: Normal For Age Attachments: Oxygen Transfers Therapy Code Descriptions/Definitions Functional [place] Measure: 0=Not Assessed/NA 4=Minimal Assistance 1=Total Assistance 5=Supervision or Setup 2=Maximal Assistance 6=Modified [place] 3=Moderate Assistance 7=Complete [place] Therapy Quality Codes: 6 Independent with activity with or without an assistive device 5 Patient requires set up or clean up by helper. Patient completes activity by themselves 4 Supervision or touching assist (CGA). [place] provide cues , steadying assist 3 The helper provides less than half the effort to complete the activity 2 The helper provides more than half the effort to complete the activity 1 Dependent. The helper does all the effort to complete an activity 7 Patient refused to complete or attempt activity 9 The patient did not perform the activity before the current illness or injury 88 Not attempted due to Medical conditions or safety concerns Transfers (B, C, W/C) (FIM): 6 Scootin Supine to/from Sit: 6 Sit to/from Stand: 6 Bed to/from Chair: 6 Weight Bearing Right Lower Extremity: Right Full Weight Bearing Left Lower Extremity: Left Full Weight Bearing Gait Training Gait (FIM): 6 Distance (FIM): 3=150 ft Distance: 150' Gait Level of Assist: 6 Gait Assistive Device: FWW safe and functional with no deviation Assessment PT educated patient on importance of OOB activities when returning to home to increase strength and functional mobility. Patient voices understanding. SW notified. PT to dismiss patient from services at this time. PT Short Term Goals Short Term Goals Time Frame: Oct 04, 2018 Transfers (B,C,W/C) (FIM): 6 Gait (FIM): 6 Distance (FIM): 3=150 ft Gait Distance Comment: 250' Gait Level of Assist: 6 Gait Assistive Device: FWW PT Plan Treatment/Plan Treatment Plan: Discontinue PT, goals met Treatment Plan: Bed Mobility, Education, Functional Activity Rainer, Functional Strength, Gait, Safety, Therapeutic Exercise, Transfers Treatment Duration: Oct 04, 2018 Frequency: 11 times per week Estimated Hrs Per Day: .5 hour per day Patient and/or Family Agrees t: Yes Discharge Recommendations Therapy D/C Recommendations: Home w/ Family Support, Physical Therapy Home Care Time/GCodes Time In: 941 Time Out: 951 Total Billed Treatment Time: 10 Total Billed Treatment 1 visit FA 10 min RESHMA LAYNE PT Sep 28, 2018 10:14
[2018-09-28] MEDS: HYDROcodone/APAP 5 MG/325 MG (LORTAB) TAB PO PRN ×2 (10:21→19:23)
[2018-09-28 12:00] VITALS: BP 145/68
--- NOTE | 2018-09-28 14:40 | Occupational Ther Daily Note ---
OT Current Status-Daily Note Subjective Pt laying in bed at start of session, agreed to OT tx. Pt reported feeling "pressure" in her back with the feeling that she needs to go to the bathroom & when she tries she does not have any success. Nursing notified after tx of how pt is feeling/ what pt reported. Pain Numeric Pain Scale: 0-No Pain Mental Status/Objective Patient Orientation: Normal For Age Therapy Code Descriptions/Definitions Functional [place] Measure: 0=Not Assessed/NA 4=Minimal Assistance 1=Total Assistance 5=Supervision or Setup 2=Maximal Assistance 6=Modified [place] 3=Moderate Assistance 7=Complete [place] ADL-Treatment Lower Body Dressing (FIM): 5 (Pt completed LE dressing with SBA during standing. pt completed 6/6 parts (pants/underwear)) Toileting (FIM): 5 (pt completed 3/3, SBA during standing ) Transfers (B, C, W/C) (FIM): 5 (SBA bed mobility sit to/from stand from chair/bed) Toilet/Commode Transfer (FIM): 5 (SBA, pt able to utilize grab bars to assist in transfer) Other Treatment Pt laying in bed at start of session, stated she needed to use the restroom and wasn't sure if she was going to make it. Pt ambulated to toilet using FWW and completed toileting. Pt changed LE clothing on the toilet, then transferred to the recliner. Pt stated she felt pressure in her back and needed to go to the restroom again. Pt assisted back to the toilet where she completed toileting. OT assisted pt back to recliner. Post OT session, pt upright in recliner with call light in reach and needs met. Nursing notified of pt's position and pt's report of "pressure" in her back. Education OT Patient Education: Correct positioning, Energy conservation, Progress toward Goal/Update tx plan, Purpose of tx/functional activities Teaching Recipient: Patient Teaching Methods: Demonstration, Discussion Response to Teaching: Verbalize Understanding, Return Demonstration OT Short Term Goals Short Term Goals Grooming(FIM): 6 Bathing(FIM): 5 Transfers (B,C,W/C) (FIM): 6 1=Demonstrate adherence to instructed precautions during ADL tasks. 2=Patient will verbalize/demonstrate understanding of assistive devices/modifications for ADL. 3=Patient will improve strength/tolerance for activity to enable patient to perform ADL's. OT Detention Goals [employer] Supervisor Goals Eating (FIM): 7 Grooming(FIM): 6 Bathing(FIM): 6 Bathing Location: L Arm, R Arm, L Upper Leg, R Upper Leg, L Lower Leg (including foot), R Lower Leg (including foot), Chest, Abdomen, Buttocks, Perineal Area Upper Body Dressing(FIM): 6 Lower Body Dressing(FIM): 6 Toileting(FIM): 6 Transfers (B,C,W/C) (FIM): 6 Toilet/Commode Transfer(FIM): 6 Additional Goals: 1-Demonstrate ADL Tasks, 2-Verbalize Understanding, 3-Impr oveStrength/Rainer 1=Demonstrate adherence to instructed precautions during ADL tasks. 2=Patient will verbalize/demonstrate understanding of assistive devices/modifications for ADL. 3=Patient will improve strength/tolerance for activity to enable patient to perform ADL's. OT Education/Plan Problem List/Assessment Assessment: Decreased Activ Tolerance, Decreased UE Strength, Impaired I ADL's, Impaired Self-Care Skills Discharge Recommendations Plan/Recommendations: Continue POC Therapy D/C Recommendations: Home w/ Family Support Treatment Plan/Plan of Care Treatment,Training & Education: Yes Patient would benefit from OT for education, treatment and training to promote independence in ADL's, mobility, safety and/or upper extremity function for ADL's. Plan of Care: ADL Retraining, Functional Mobility, Group Exercise/Act as Ind, UE Funct Exercise/Act Treatment Duration: Oct 10, 2018 Frequency: 5 times per week Estimated Hrs Per Day: .25 hour per day Agreement: Yes Rehab Potential: Fair Time/GCodes Start Time: 13:48 Stop Time: 14:22 Total Time Billed (hr/min): 34 Billed Treatment Time 1, ADL 2 X34min OSCAR GALAN OT Sep 28, 2018 14:40
[2018-09-28] MEDS: HYDROcodone/APAP 10 MG/325 MG (LORTAB) TAB PO PRN (15:01)
[2018-09-28 16:00] VITALS: BP 160/67
[2018-09-28] MEDS ORDERED: ALPRAZolam 0.25 MG (XANAX) TAB PO NR (16:15)
--- NOTE | 2018-09-28 18:23 | Diagnostic Imaging Report ---
INDICATION: Back and rib pain 3 views of the thoracic spine were obtained. There are changes of prior kyphoplasty of T12. There is normal height and alignment of the upper levels. There is spondylosis. No spinal canal encroachment is seen. No fracture or other acute abnormality is seen. IMPRESSION: There are changes of prior kyphoplasty at T12. There is spondylosis. No acute abnormality is seen. Dictated by: Dictated on workstation # [id number]
--- NOTE | 2018-09-28 19:45 | NUR ---
pt left via wheelchair with dc paperwork and rx for pain med.. pt voiced understanding with instructions and agreed with discharge. encouarged pt to follow dc instuctions .
--- NOTE | 2018-09-28 19:50 | NUR ---
Late Entry: At approximately 1445, patient states she is having pain radiating from back to ribs. Patient also states that daughter will be here to pick her up in 15 minutes. Patient seems anxious. Pain mediation administered. After daughter arrives, this nurse is called back into room. Daughter states that mother is very upset and in pain. Daughter is concerned about patient discharging from hospital. Physicians, Supervisors, and community mental health social worker alerted. New orders received from [facility] for Xray and Xanax. While awaiting X-ray results, multiple discussions with daughter and patient about discharge, both were talking about discharge in present tense. When this nurse gave x-ray results to patient and her daughter, daughter threw hands up and very loudly said; "You mean you are sending her home in this condition? She is rating her pain at a 10/10, crying, and panting like a dog." This nurse observes that patient has tears in her eyes and does rate pain at 10/10. Patient is not panting, but does appear to be having signs and symptoms of anxiety. Physicians notified. Later, Patient's daughter finds nurse and asks for papers so that they can leave.
== END 2018-09-28 19:30 ==
LOC: SDC 07:42 → 4TH 11:45 → SDC 09-28 19:30
PROVIDERS: ATTEND Orthopaedic Surgery
DX: S22.080A Wedge compression fracture of T11-T12 vertebra, initial encounter for closed fracture (principal); M81.0 Age-related osteoporosis without current pathological fracture; I25.119 Atherosclerotic heart disease of native coronary artery with unspecified angina pectoris; G47.33 Obstructive sleep apnea (adult) (pediatric); K21.9 Gastro-esophageal reflux disease without esophagitis; F32.9 Major depressive disorder, single episode, unspecified; I10 Essential (primary) hypertension; I25.2 Old myocardial infarction; Z86.73 Personal history of transient ischemic attack (TIA), and cerebral infarction without residual deficits; Z99.89 Dependence on other enabling machines and devices; Z90.49 Acquired absence of other specified parts of digestive tract; Z86.39 Personal history of other endocrine, nutritional and metabolic disease; Z79.4 Long term (current) use of insulin; Z79.82 Long term (current) use of aspirin; Z79.02 Long term (current) use of antithrombotics/antiplatelets; Z90.89 Acquired absence of other organs; E11.9 Type 2 diabetes mellitus without complications; E78.5 Hyperlipidemia, unspecified
CPT/HCPCS: 82962; 87081; 94664